=== PATIENT | female | born 1940 | race Caucasian/White ===

== ENCOUNTER 2016-10-21 22:31 | Inpatient (IN) | payer MEDICARE ==
[~2016-10-21] VITALS: Ht 152.4 cm; Wt 54.8 kg
[~2016-10-21 22:31] MED LIST: ACYCLOVIR400 MG PO; ALBUTEROL SUL0.083 % IN; ALPRAZOLA PO; AMBIEN10 MG OR; AMBIEN10 MG PO; AMLODIPINE5 MG PO; ATENOLOL50 MG OR; AVAPRO150 MG OR; AVELOX400 MG PO; CEFTIN500 MG PO; CHERATUSSIN PO; CLONIDINE0.2 MG OR; COUMADIN4 MG PO; COUMADIN5 MG OR; COUMADIN5 MG PO; DIAZEPAM5 MG PO; DIGITEK0.125 MG PO; DOXYCYCL HYC100 MG PO; DUONEB IN; EFFER-K25 MEQ; ELIQUIS5 MG PO; ENOXAPARIN40 MG/0.1 SC; HALCION0.25 MG OR; HALCION0.25 MG PO; INDERAL 20MG TA20 MG PO; JANTOVEN5 MG PO; K-DUR/KLOR-CON10 MEQ PO; LASIX 20 MG TAB20 MG PO; LISINOPRIL10 MG PO; LISINOPRIL20 MG PO; LISINOPRIL5 MG PO; LOPRESSOR 550 MG/TAB PO; LOPRESSOR50 MG PO; LOSARTAN POT50 MG PO; LOVENOX 4040 MG/0.4 SC; LOVENOX80 MG/0.8 SC; MAG CITRATE PO; MEDDOSEPAK OR; METHADONE HCL10 MG PO; METOPROL TAR25 MG PO; METOPROL TAR50 MG OR; MIRALAX3350 N1 PO; NADOLOL20 MG PO; NORCO1 TA1 PO; OXYCOD/APAP1 TA4 PO; PERCOCET 10/31 COMBO PO; PERCOCET 5/321 COMBO PO; PERCOCET 5/325M1 TAB PO; PERCOCET1 TA2 OR; PERCOCET1 TA4 PO; PREDNISONE20 MG PO; RESTORIL15 MG PO; RESTORIL30 MG PO; SURFAK240 MG/CAP PO; TEMAZEPAM30 MG PO; TRAMADOL HCL50 MG PO; TRICOR145 MG OR; ULTRAM50 M1 PO; VALIUM2 MG; VALIUM5 MG OR; VISTARIL25 MG PO; WARFARIN SODIUM5 MG PO; WARFARIN10 MG PO; XANAX XR0.5 MG PO; ZITHROMAX250 MG PO; ZOVIRAX800 MG OR
--- NOTE | 2016-10-21 22:32 | NUR ---
PATIENT TO ROOM 10 VIA EMS STRETCHER. UNDRESSED INTO A GOWN. TRIAGE COMPLETED AT BEDSIDE. AWAITING MD PEREIRA.
--- NOTE | 2016-10-21 22:34 | NUR ---
PT. WITH C/O NAUSEA AND VOMITING SINCE THIS AM. PT. STATES SHE VOMITED 1 TIME A MODERATE AMT. OF UNDIGESTED FOOD.
[2016-10-21 23:01] LABS: HEMOGLOBIN 14.1 g/dl (12.0-16.0); IMMATURE GRANULOCYTES 0.3 % (0.0-1.0); MEAN CELL VOLUME 90.1 fL CALC (80.0-100.0); MEAN CORPUSCULAR HGB CONC 34.4 g/L CALC (32.0-36.0); NEUT# 11.36 thou/uL (2.00-7.15); RED BLOOD COUNT 4.55 mill/uL (4.20-5.60); RED CELL DISTRI WIDTH 13.2 % (11.5-15.5)
--- NOTE | 2016-10-21 23:08 | NUR ---
IVF AND IV ANTIEMETIC GIVEN PER MD ORDER.
[2016-10-21 23:19] LABS: AMYLASE 365 u/l (30-110); LIPASE 886 u/l (23-300)
[2016-10-21 23:21] LABS: ALBUMIN 4.5 g/dL (3.2-5.0); ALKALINE PHOSPHATASE 139 u/l (38-126); ANION GAP 19 (6-22 (CALC)); BILIRUBIN, TOTAL 0.7 mg/dL (0.0-1.4); BUN 21 mg/dL (8-23); BUN/CREATININE RATIO 28 (12-20 (CALC)); CALCIUM 9.4 mg/dL (8.4-10.2); CARBON DIOXIDE 21 mmol/l (22-30); CHLORIDE 107 mmol/l (95-108); CREATININE 0.8 mg/dL (0.5-1.0); GFR > 60 ML/MIN (>=60 (CALC)); GFR FOR AFR.AMER. > 60 ML/MIN (>=60 (CALC)); GLUCOSE 173 mg/dL (82-115); POTASSIUM 4.1 mmol/l (3.5-5.1); SGOT/AST 47 u/l (9-36); SGPT/ALT 39 u/l (11-66); SODIUM 143 mmol/l (137-146); TOTAL PROTEIN 7.4 g/dL (6.3-8.2)
--- NOTE | 2016-10-21 23:22 | NUR ---
IV PAIN MED GIVEN PER MD ORDER.
[2016-10-21 23:32] LABS: MYOGLOBIN 24 ng/mL (0 - 62)
--- NOTE | 2016-10-21 23:34 | NUR ---
IV LABETALOL GIVEN FOR BP 208/147, HR 80.
--- NOTE | 2016-10-21 23:40 | NUR ---
BP NOW 187/83. AWARE.
--- NOTE | 2016-10-22 00:07 | NUR ---
IV PAIN MED AND IV PROTONIX GIVEN PER MD ORDER.
--- NOTE | 2016-10-22 01:05 | NUR ---
IVF CONT. PER MD ORDER.
--- NOTE | 2016-10-22 01:09 | NUR ---
PT. STATES HER ABD. PAIN HAS NOW DECREASED TO A 7 ON A SCALE OF 1-10.
--- NOTE | 2016-10-22 01:49 | NUR ---
Admission Note Report Given to: PAMELA FUNES Transported by: Wheelchair X Stretcher Transported with: X Nurse Transporter X Patent IV O2 Machine Silk Screen Printer
--- NOTE | 2016-10-22 02:06 | NUR ---
PT. TRANSFERED TO [facility].
[2016-10-22 02:25] VITALS: BP 173/89
--- NOTE | 2016-10-22 02:25 | NUR ---
PT. ARRIVED TO THE FLOOR VIA STRETCHER ACCOMPANIED BY ER NURSE. PT. ASSISTED TO THE BSC TO VOID, PT. VOIDED 400 ML OF DARK YELLOW URINE, AND THEN ASSISTED PT. INTO BED.ORIENTED TO CALL LIGHT, ROOM , VERBALIZES UNDERSTANDING. TEDS PLACED TO BILATERAL LE. VS OBTAINED, B/P ELEVATED AT 173/89, AND PT. C/O PAIN AND NAUSEA, NO ORDERS FOR MEDICATIONS AT THIS TIME, WILL CALL MD FOR FURTHER ORDERS. IV SITE TO LEFT HAND FOUND DISLODGED, CATH TIP IS INTACT, PLANT MAINTENANCE MECHANIC TO PLACE NEW IV SITE SHORTLY. POC EXPLAINED. INSTRUCTED PT. TO CALL FOR ANY OOB NEEDS. WILL CONTINUE TO MONITOR. CALL LIGHT IS IN REACH.
--- NOTE | 2016-10-22 02:56 | NUR ---
CALLED DR. DUFFY AND NOTIFIED HIM OF PT'S B/P 173/89 AND OF PT'S C/O PAIN AND NAUSEA, NEW ORDERS RECEIVED AND TO BE CARRIED OUT.
[2016-10-22 03:21] LABS: URINE BILIRUBIN - DIPSTICK NEGATIVE (NEGATIVE); URINE BLOOD DIPSTICK NEGATIVE (NEGATIVE); URINE CLARITY CLEAR; URINE COLOR YELLOW; URINE GLUCOSE - DIPSTICK 100 mg/dL (NEGATIVE); URINE KETONE NEGATIVE (NEGATIVE); URINE LEUK ESTERASE NEGATIVE (NEGATIVE); URINE NITRITE - DIPSTICK NEGATIVE (Negative); URINE PROTEIN - DIPSTICK NEGATIVE (NEG-TRACE); URINE SPECIFIC GRAVITY >=1.030; URINE UROBILINOGEN - DIPSTICK 0.2 E.U./dL (0.2)
[2016-10-22 03:27] LABS: BARBITURATES NEGATIVE (NEGATIVE); COCAINE NEGATIVE (NEGATIVE); METHADONE NEGATIVE (NEGATIVE); OXCYCODONE POSITIVE (NEGATIVE); TETRAHYDROCANNABIONOL POSITIVE (NEGATIVE); TRICYLIC ANTIDEPRESSANTS NEGATIVE (NEGATIVE)
[2016-10-22 05:47] VITALS: BP 145/61
--- NOTE | 2016-10-22 05:47 | NUR ---
PT. RESTING IN BED WITH NO DISTRESS NOTED. B/P REASSESSED 145/61. WILL CONTINUE TO MONITOR.
[2016-10-22 07:09] VITALS: BP 133/68
--- NOTE | 2016-10-22 07:09 | NUR ---
PT IN SUPINE POSITION; A/O X3; NO COMPLAINTS VOICED AT THIS TIME; CALL MARTINES WITHIN REACH; WILL CONTINUE TO MONITOR.
--- NOTE | 2016-10-22 07:53 | NUR ---
REPORT RECIEVED. PT IS ALERT AND ORIENTED X4. ASSESSMENT COMPLETED WITH NO ABNORMALITIES. A SHOWER WAS OFFERED BUT DENIED. PT HAS NO COMPLAINTS AT THIS TIME. CALL LIGHT IS IN PLACE. I WILL CONTINUE TO MONITOR.
--- NOTE | 2016-10-22 08:46 | NUR ---
DR. DUFFY IN TO SEE PT; PLAN OF CARE DISCUSSED
[2016-10-22 09:22] LABS: HEMATOCRIT 33.6 % (37.0-47.0); HEMOGLOBIN 11.4 g/dl (12.0-16.0); IMMATURE GRANULOCYTES 0.5 % (0.0-1.0); MEAN CELL VOLUME 91.8 fL CALC (80.0-100.0); MEAN CORPUSCULAR HGB 31.1 pG CALC (26.0-32.0); MEAN CORPUSCULAR HGB CONC 33.9 g/L CALC (32.0-36.0); NEUT# 7.5 thou/uL (2.00-7.15); RED BLOOD COUNT 3.66 mill/uL (4.20-5.60); RED CELL DISTRI WIDTH 13.2 % (11.5-15.5)
[2016-10-22 10:02] LABS: ANION GAP 14 (6-22 (CALC)); BUN 15 mg/dL (8-23); BUN/CREATININE RATIO 24 (12-20 (CALC)); CALCIUM 8.3 mg/dL (8.4-10.2); CARBON DIOXIDE 22 mmol/l (22-30); CHLORIDE 110 mmol/l (95-108); CREATININE 0.6 mg/dL (0.5-1.0); GFR > 60 ML/MIN (>=60 (CALC)); GFR FOR AFR.AMER. > 60 ML/MIN (>=60 (CALC)); GLUCOSE 126 mg/dL (82-115); POTASSIUM 3.9 mmol/l (3.5-5.1); SODIUM 141 mmol/l (137-146)
--- NOTE | 2016-10-22 11:52 | NUR ---
I ASSISTED PT TO THE BEDSIDE COMMODE TO VOID (200MLS) AND THEN HELPED HER BACK TO BED. HER IV FLUID BAG WAS CHANGED. LUNCH WAS PROVIDED FOR HER. PT HAS NO COMPLAINTS AT THIS TIME AND CALL LIGHT IS IN PLACE. REPORT WAS GIVEN.
--- NOTE | 2016-10-22 12:01 | NUR ---
TYRELL LANZA STUDENT DOCUMENTATION DATE AND TIME: 10/22/1605/02/1201 by Radha Howe-Instructor. All documentation for date entered by GIANLUCA Sandoval reviewed and deemed acceptable.
[2016-10-22 15:05] VITALS: BP 166/86
--- NOTE | 2016-10-22 15:41 | NUR ---
PT IN SUPINE POSITION; NO COMPLAINTS VOICED AT THIS TIME; IVF INFUSING WITHOUT DIFFICULTY; CALL MARTINES WITHIN REACH; WILL CONTINUE TO MONITOR.
--- NOTE | 2016-10-22 19:50 | NUR ---
PT RESTING IN SEMI FOWLERS POSITION;PT COMPLAINS OF ABDOMINAL AND BACK PAIN RATING 8/10 ON THE PAIN SCALE AND REQUESTS PRN PAIN MEDICATION;PT TO BE MEDICATED ACCORDINGLY;ASSESSMENT COMPLETED;IV FLUIDS INFUSING WELL TO LEFT FOREARM;NO ABDOMINAL TENDERNESS NOTED;SKIN INTACT;VS OBTAINED;COMMODE AT BEDSIDE;PT RE-EDUCATED ON ROOM AND CALL LIGHT SYSTEM ANF VERBALIZES UNDERSTANDING;PT REQUESTS PRN SLEEPING MEDICATION;MD TO BE NOTIFED;PT DENIES ANY OTHER NEEDS AT THIS TIME;BED IN LOWEST POSITION WITH CALL LIGHT IN REACH;WILL CONTINUE TO MONITOR
[2016-10-22 20:05] VITALS: BP 162/80
--- NOTE | 2016-10-22 20:15 | NUR ---
RBTO FOR RESTORIL 15MG PO PRN SLEEP OBTAINED FROM ;WILL CONTINUE TO MONITOR
--- NOTE | 2016-10-23 00:15 | NUR ---
PT SLEEPING IN BED;NO S/S OF DISTRESS NOTED;IV FLUIDS INFUSING WELL;RESPIRATIONS EVEN AND UNLABORED ON RA;COMMODE AT BEDSIDE;BED IN LOWEST POSITION WITH CALL LIGHT IN REACH;WILL CONTINUE TO MONITOR
--- NOTE | 2016-10-23 03:30 | NUR ---
PT SLEEPING IN SEMI FOWLERS POSITION;IV FLUIDS INFUSING WELL AT THIS TIME;NO S/S OF DISTRESS NOTED;RESPIRATIONS EVEN AND UNLABORED ON RA;COMMODE AT BEDSIDE;BED IN LOWEST POSITION WITH CALL LIGHT IN REACH;WILL CONTINUE TO MONITOR
[2016-10-23 05:15] VITALS: BP 139/88
--- NOTE | 2016-10-23 05:30 | NUR ---
PT RESTING IN SEMI FOWLERS POSITION;PT VERBALIZES THAT SHE HAD A GREAT NIGHT SLEEP;PT COMPLAINS OF ABDOMINAL PAIN RATING 7/10 ON THE PAIN SCALE AND REQUESTS PRN PAIN MEDICATION;PT TO BE MEDICATED ACCORDINGLY PER MD ORDERS;IV FLUIDS INFUSING WELL;PT DENIES ANY OTHER NEEDS AT THIS TIME;PT TOLD TO CALL FOR ASSISTANCE IF NEEDED;BED IN LOWEST POSITION WITH CALL LIGHT IN REACH;WILL CONTINUE TO MONITOR
[2016-10-23 08:30] VITALS: BP 161/91
--- NOTE | 2016-10-23 08:30 | NUR ---
ASSESSMENT IS COMPLETED: RIGHT SIDED WEAKNESS FROM STROKE IN MOV. IV SITE IS FREE FROM REDNESS OR EDEMA. CONTINUE TO OBSERVE AND MONITOR.
[2016-10-23 09:43] LABS: HEMATOCRIT 33.7 % (37.0-47.0); HEMOGLOBIN 11.2 g/dl (12.0-16.0); IMMATURE GRANULOCYTES 0.3 % (0.0-1.0); MEAN CELL VOLUME 93.9 fL CALC (80.0-100.0); MEAN CORPUSCULAR HGB 31.2 pG CALC (26.0-32.0); MEAN CORPUSCULAR HGB CONC 33.2 g/L CALC (32.0-36.0); NEUT# 3.45 thou/uL (2.00-7.15); RED BLOOD COUNT 3.59 mill/uL (4.20-5.60); RED CELL DISTRI WIDTH 13.3 % (11.5-15.5)
[2016-10-23 09:52] LABS: ALBUMIN 3.1 g/dL (3.2-5.0); ALKALINE PHOSPHATASE 86 u/l (38-126); AMYLASE 56 u/l (30-110); ANION GAP 10 (6-22 (CALC)); BILIRUBIN, TOTAL 0.6 mg/dL (0.0-1.4); BUN 10 mg/dL (8-23); BUN/CREATININE RATIO 14 (12-20 (CALC)); CALCIUM 7.9 mg/dL (8.4-10.2); CARBON DIOXIDE 24 mmol/l (22-30); CHLORIDE 112 mmol/l (95-108); CREATININE 0.7 mg/dL (0.5-1.0); GFR > 60 ML/MIN (>=60 (CALC)); GFR FOR AFR.AMER. > 60 ML/MIN (>=60 (CALC)); GLUCOSE 82 mg/dL (82-115); LIPASE 21 u/l (23-300); POTASSIUM 3.8 mmol/l (3.5-5.1); SGOT/AST 20 u/l (9-36); SGPT/ALT 27 u/l (11-66); SODIUM 142 mmol/l (137-146); TOTAL PROTEIN 5.6 g/dL (6.3-8.2)
--- NOTE | 2016-10-23 12:30 | NUR ---
PT IS RELAXING IN BED NOT REALLY WANTING THE IV BUT UNDERSTANDS THE NEED FOR IT.
--- NOTE | 2016-10-23 13:36 | NUR ---
IV SITE ON LEFT FA INFILTRATED., ATTEMPTED X1 IN RFA AND IT ALSO INFILTRATED. CONTINUE TO OBSERVE AND MONITOR.
--- NOTE | 2016-10-23 14:12 | NUR ---
IV SITE IN RH WITH # 24 BY Anita DENISE RN. PT TOLERATED WELL.
[2016-10-23 16:55] VITALS: BP 151/77
--- NOTE | 2016-10-23 17:11 | NUR ---
PT IS RELAXING IN BED WITH NO DISTRESS NOTED. IV SITE IS FREE FROM REDNESS OR EDEMA.
[2016-10-23 19:15] VITALS: BP 178/88
--- NOTE | 2016-10-23 19:18 | NUR ---
PT ASSISTED UP TO BSC AND BACK TO BED. ASSESSMENT COMPLETEE.POC EXPAINED. MEDICATED WITH DILAUDID AND CLONIDINE PER ORDERS FOR C/O BACK PAIN AND BP WAS 178/88. PT DENIES FURTHER NEEDS. CALL LIGHT IN REACH.
[2016-10-23 21:30] VITALS: BP 171/85
--- NOTE | 2016-10-23 21:40 | NUR ---
PT ASSISTED UP TO BSC AND BACK BED, MEDICATED WITH RESTORIL PER ORDERS. DENIES FURTHER NEEDS. CALL LIGHT IN REACH.
[2016-10-24] VITALS (7 sets, daily range): BP systolic 154–179; BP diastolic 78–91
--- NOTE | 2016-10-24 00:12 | NUR ---
PT MEDICATED WITH DILAUDID PER ORDERS FOR C/O LOWER BACK PAIN. DENIES FURTHER NEEDS. CALL LIGHT IN REACH
--- NOTE | 2016-10-24 03:09 | NUR ---
PT IN BED WITH EYES CLOSED.RESP EVEN AND UNLABORED.NO S/S OF DISTRESS. CALL LIGHT IN REACH
--- NOTE | 2016-10-24 04:20 | NUR ---
PT MEDICATED WITH DILAUDID PER ORDRES FOR C/O BACK PAIN. DENIES FURTHER NEEDS. CALL LIGHT IN REACH
[2016-10-24 05:47] LABS: HEMOGLOBIN 12.5 g/dl (12.0-16.0); IMMATURE GRANULOCYTES 1.1 % (0.0-1.0); MEAN CELL VOLUME 91.8 fL CALC (80.0-100.0); MEAN CORPUSCULAR HGB CONC 33.8 g/L CALC (32.0-36.0); NEUT# 5.89 thou/uL (2.00-7.15); RED BLOOD COUNT 4.03 mill/uL (4.20-5.60); RED CELL DISTRI WIDTH 12.9 % (11.5-15.5)
[2016-10-24 06:11] LABS: ALBUMIN 3.4 g/dL (3.2-5.0); ALKALINE PHOSPHATASE 102 u/l (38-126); AMYLASE 41 u/l (30-110); ANION GAP 13 (6-22 (CALC)); BILIRUBIN, TOTAL 0.9 mg/dL (0.0-1.4); BUN 9 mg/dL (8-23); BUN/CREATININE RATIO 12 (12-20 (CALC)); CALCIUM 8.3 mg/dL (8.4-10.2); CARBON DIOXIDE 26 mmol/l (22-30); CHLORIDE 106 mmol/l (95-108); CREATININE 0.7 mg/dL (0.5-1.0); GFR > 60 ML/MIN (>=60 (CALC)); GFR FOR AFR.AMER. > 60 ML/MIN (>=60 (CALC)); GLUCOSE 71 mg/dL (82-115); LIPASE 11 u/l (23-300); POTASSIUM 3.6 mmol/l (3.5-5.1); SGOT/AST 23 u/l (9-36); SGPT/ALT 31 u/l (11-66); SODIUM 142 mmol/l (137-146); TOTAL PROTEIN 5.7 g/dL (6.3-8.2)
--- NOTE | 2016-10-24 07:00 | NUR ---
SHIFT CHANGE REPORT FROM KAYLEE, PT SLEEPING BUT AROUSES TO VERBAL STIMULI, ORIENTED, STATES SHE FEELS MUCH BETTER TODAY THAN SHE DID YESTERDAY, ALL NEEDS ADDRESSED, CALL MARTINES IN REACH.
--- NOTE | 2016-10-24 12:25 | NUR ---
ASSISTED FROM RECLINER TO BR AND BACK TO BED, PT WANTS TO EAT MEAL IN BED AND STATES SHE HAS BEEN SITTING TOO LONG IN CHAIR. PAIN ISSUE ADDRESSED, CALL MARTINES IN REACH.
--- NOTE | 2016-10-24 16:23 | NUR ---
C/O PAIN @ 04/25 TO BACK AND ABD, ISSUE ADDRESSED, CALL MARTINES IN REACH.
--- NOTE | 2016-10-24 17:03 | NUR ---
BP ELEVATED, DR DUFFY NOTIFIED, GAVE ORDERS, ORDERS EXECUTED.
--- NOTE | 2016-10-24 19:30 | NUR ---
B/P 154/83 HR 79, OOB TO BSC VOIDING CLEAR YELLOW URINE, A/O X3, DENIES PAIN AT THIS TIME. ENCOURAGED TO USE CALL LIGHT FOR ASSISTANCE.
--- NOTE | 2016-10-24 21:35 | NUR ---
C/O PAIN TO BACK 04/25 MEDICATED WITH DILAUDID 1MG IV.
--- NOTE | 2016-10-24 23:30 | NUR ---
OOB TO BSC WITH STANDBY ASSISTANCE, VOIDING CLEAR YELLOW URINE, BACK TO BED. CALL LIGHT IN REACH.
[2016-10-25 04:01] VITALS: BP 130/83
[2016-10-25 05:50] LABS: HEMATOCRIT 38.7 % (37.0-47.0); HEMOGLOBIN 13.4 g/dl (12.0-16.0); IMMATURE GRANULOCYTES 0.1 % (0.0-1.0); MEAN CELL VOLUME 89.2 fL CALC (80.0-100.0); MEAN CORPUSCULAR HGB 30.9 pG CALC (26.0-32.0); MEAN CORPUSCULAR HGB CONC 34.6 g/L CALC (32.0-36.0); NEUT# 4.72 thou/uL (2.00-7.15); RED BLOOD COUNT 4.34 mill/uL (4.20-5.60); RED CELL DISTRI WIDTH 12.8 % (11.5-15.5)
--- NOTE | 2016-10-25 06:01 | NUR ---
MEDICATED WITH DILAUDID 1MG IV FOR C/O BACK PAIN 04/25.
[2016-10-25 06:10] LABS: ANION GAP 11 (6-22 (CALC)); BUN 10 mg/dL (8-23); BUN/CREATININE RATIO 15 (12-20 (CALC)); CALCIUM 8.8 mg/dL (8.4-10.2); CARBON DIOXIDE 30 mmol/l (22-30); CHLORIDE 103 mmol/l (95-108); CREATININE 0.7 mg/dL (0.5-1.0); GFR > 60 ML/MIN (>=60 (CALC)); GFR FOR AFR.AMER. > 60 ML/MIN (>=60 (CALC)); GLUCOSE 96 mg/dL (82-115); POTASSIUM 3.5 mmol/l (3.5-5.1); SODIUM 141 mmol/l (137-146)
--- NOTE | 2016-10-25 07:00 | NUR ---
SHIFT CHANGE REPORT FROM LEONARDO, KAYE AWAKE AND ALERT SITTING UP IN BED, NO NEW COMPLAIN AT THIS TIME, ALL NEEDS ADDRESSED, CALL MARTINES IN REACH.
[2016-10-25 09:34] VITALS: BP 125/73
[2016-10-25 09:49] VITALS: BP 125/73
[2016-10-25] MEDS ORDERED: AMLODIPINE5 MG PO (10:52)
[2016-10-25] MEDS ORDERED: METOPROL TAR25 MG PO (10:52)
[2016-10-25] MEDS ORDERED: LISINOPRIL10 MG PO (10:52)
[2016-10-25] MEDS ORDERED: ALBUTEROL SUL0.083 % IN (10:52)
[2016-10-25] MEDS ORDERED: TEMAZEPAM30 MG PO (10:52)
[2016-10-25] MEDS ORDERED: PERCOCET 5/325M1 TAB PO (10:52)
[2016-10-25] MEDS ORDERED: DIAZEPAM5 MG PO (10:52)
--- NOTE | 2016-10-25 13:03 | NUR ---
GRAND-DAUGHTER MARLA WAS CALLED TO RECEIVE PT, STATED SHE WAS IN [place] AND WAS NOT ABLE TO GET PT, ADVISED TO SEND HOME PT IN [place] AND HER FATHER WILL PAY [employer] FEE WHEN PT REACHES HOME. PT WAS ADVISED OF PLAN AND AGREED, [facility] WAS CALLED FOR PT.
--- NOTE | 2016-10-25 13:05 | NUR ---
Discharge instructions given. Patient verbalizes understanding of same. Discharged in good condition via Wheelchair to Home with *Other. All belongings sent with pt.
== END 2016-10-25 13:20 | disposition home or self-care (01) | DRG 439 ==
LOC: ENPENDDIS → ED 22:31 → ED-I 10-22 00:56 → ED 10-22 01:03 → MS2 10-22 01:04
PROVIDERS: Emergency Medicine; ADMIT Internal Medicine Geriatric Medicine; ATTEND Internal Medicine Geriatric Medicine
DX: K85.90 Acute pancreatitis without necrosis or infection, unspecified (principal); F19.20 Other psychoactive substance dependence, uncomplicated; I48.91 Unspecified atrial fibrillation; J44.9 Chronic obstructive pulmonary disease, unspecified; I10 Essential (primary) hypertension; I25.10 Atherosclerotic heart disease of native coronary artery without angina pectoris; F41.9 Anxiety disorder, unspecified; F32.9 Major depressive disorder, single episode, unspecified; G89.4 Chronic pain syndrome; Z95.0 Presence of cardiac pacemaker; Z86.711 Personal history of pulmonary embolism
CPT/HCPCS: S0164

== ENCOUNTER 2016-11-24 12:08 | Inpatient (IN) | payer MEDICARE ==
[~2016-11-24] VITALS: Ht 152.4 cm; Wt 53.0 kg
[2016-11-24 12:41] LABS: HEMATOCRIT 44.6 % (37.0-47.0); IMMATURE GRANULOCYTES 0.4 % (0.0-1.0); MEAN CELL VOLUME 94.1 fL CALC (80.0-100.0); MEAN CORPUSCULAR HGB 31.6 pG CALC (26.0-32.0); MEAN CORPUSCULAR HGB CONC 33.6 g/L CALC (32.0-36.0); NEUT# 6.59 thou/uL (2.00-7.15); RED BLOOD COUNT 4.74 mill/uL (4.20-5.60); RED CELL DISTRI WIDTH 12.8 % (11.5-15.5)
--- NOTE | 2016-11-24 12:42 | NUR ---
PT STATES HASNT BEEN TAKING HER BLOOD PRESSURE MEDICATION FOR SEVERAL DAYS, STATES SHE RAN OUT OF MEDICATION SEVERAL DAYS AGO AND HASNT BEEN ABLE TO CATTLE TRADER MEDICATION
--- NOTE | 2016-11-24 12:43 | NUR ---
PT STATES HER DAUGHTER EITHER DOESNT HAVE THE TIME, OR DOESNT WANT TO [employer] RECORDER HER MEDICATIONS EVEN THOUGH SHE HAS TOLD HER THAT SHE WOULD PAY FOR THEM, BECAUSE SHE SAYS SHE HAS ASKED HER SEVERAL TIMES.
--- NOTE | 2016-11-24 12:44 | NUR ---
PT UP TO BEDSIDE COMMODE
[2016-11-24 12:53] LABS: ALBUMIN 4.5 g/dL (3.2-5.0); ALKALINE PHOSPHATASE 131 u/l (38-126); ANION GAP 16 (6-22 (CALC)); BILIRUBIN, TOTAL 0.5 mg/dL (0.0-1.4); BUN 18 mg/dL (8-23); BUN/CREATININE RATIO 26 (12-20 (CALC)); CALCIUM 9.6 mg/dL (8.4-10.2); CARBON DIOXIDE 26 mmol/l (22-30); CHLORIDE 106 mmol/l (95-108); CREATININE 0.7 mg/dL (0.5-1.0); GFR > 60 ML/MIN (>=60 (CALC)); GFR FOR AFR.AMER. > 60 ML/MIN (>=60 (CALC)); GLUCOSE 92 mg/dL (82-115); POTASSIUM 4.5 mmol/l (3.5-5.1); SGOT/AST 34 u/l (9-36); SGPT/ALT 42 u/l (11-66); SODIUM 144 mmol/l (137-146); TOTAL PROTEIN 7.8 g/dL (6.3-8.2)
[2016-11-24 13:20] LABS: URINE BILIRUBIN - DIPSTICK NEGATIVE (NEGATIVE); URINE BLOOD DIPSTICK NEGATIVE (NEGATIVE); URINE CLARITY CLEAR; URINE COLOR YELLOW; URINE GLUCOSE - DIPSTICK NEGATIVE (NEGATIVE); URINE KETONE NEGATIVE (NEGATIVE); URINE LEUK ESTERASE NEGATIVE (NEGATIVE); URINE NITRITE - DIPSTICK NEGATIVE (Negative); URINE PH 6.5 (4.5-8.0); URINE PROTEIN - DIPSTICK NEGATIVE (NEG-TRACE); URINE SPECIFIC GRAVITY <=1.005; URINE UROBILINOGEN - DIPSTICK 0.2 E.U./dL (0.2)
[2016-11-24 13:24] LABS: BARBITURATES NEGATIVE (NEGATIVE); COCAINE NEGATIVE (NEGATIVE); METHADONE NEGATIVE (NEGATIVE); OXCYCODONE NEGATIVE (NEGATIVE); TETRAHYDROCANNABIONOL POSITIVE (NEGATIVE); TRICYLIC ANTIDEPRESSANTS NEGATIVE (NEGATIVE)
--- NOTE | 2016-11-24 13:51 | NUR ---
PT RESTING QUIETLY ON STRETCHER, WATCHING TV.
--- NOTE | 2016-11-24 15:06 | NUR ---
PT UP TO BATHROOM AGAIN, B/P HAS DECREASED, PT STATES FEELS MUCH BETTER
--- NOTE | 2016-11-24 16:13 | NUR ---
PT SLEEPING, LIGHTS TURNED OFF, VITAL SIGNS REMAIN STABLE. STATES SHE IS WANTING TO STAY OVERNIGHT AT HOSPITAL, SINCE SHE DOESNT HAVE HER MEDICATIONS TO CONTINUE TAKING.
--- NOTE | 2016-11-24 16:40 | NUR ---
PT COMPLAINING OF BACK PAIN, REQUESTING SOMETHING FOR THE PAIN
--- NOTE | 2016-11-24 17:49 | NUR ---
REPORT GIVEN TO MED SURG FOR CONTINUATION OF CARE
[2016-11-24 18:00] VITALS: BP 164/88
--- NOTE | 2016-11-24 18:00 | NUR ---
PT TO ROOM VIA STRETCHER ACCOMPANIED BY STAFF; PT TO BED WITH MIN ASSIST; DR. DUFFY IN TO SEE PT; PT STATES RAN OUT OF BLOOD PRESSURE MEDS 3 DAYS AGO, UNABLE TO HAVE ANYONE PICK HER MEDS UP FROM THE PHARMACY AND STATES SHE HAD A FALL YESTERDAY AT HOME, WHILE GARDENING; TELE MONITOR IN PLACE; PT C/O BACK PAIN 03/25, WILL MEDICATE PER MD ORDER; PT ORIENTED TO ROOM AND CALL SYSTEM; WILL CONTINUE TO MONITOR.
--- NOTE | 2016-11-24 19:32 | NUR ---
PT IN BED A/O X3, C/O BACK AND GENERALIZED PAIN 04/25, MEDICATED WITH DILAUDID 1MG IV, ORIENTED TO BED CONTROLS AND CALL LIGHT. ENCOURAGED TO USE CALL LIGHT FOR ASSISTANCE, WILL CONTINUE TO MONITOR.
[2016-11-24 23:20] VITALS: BP 103/69
--- NOTE | 2016-11-25 01:39 | NUR ---
C/O BACK PAIN 05/25, MEDICATED WITH DILAUID IV PER OCT, CALL LIGHT IN REACH.
[2016-11-25 04:11] VITALS: BP 132/89
[2016-11-25 05:46] LABS: HEMATOCRIT 43.4 % (37.0-47.0); HEMOGLOBIN 14.5 g/dl (12.0-16.0); IMMATURE GRANULOCYTES 0.3 % (0.0-1.0); MEAN CELL VOLUME 94.6 fL CALC (80.0-100.0); MEAN CORPUSCULAR HGB 31.6 pG CALC (26.0-32.0); MEAN CORPUSCULAR HGB CONC 33.4 g/L CALC (32.0-36.0); NEUT# 6.41 thou/uL (2.00-7.15); RED BLOOD COUNT 4.59 mill/uL (4.20-5.60); RED CELL DISTRI WIDTH 13.1 % (11.5-15.5)
[2016-11-25 06:26] LABS: ALKALINE PHOSPHATASE 112 u/l (38-126); ANION GAP 18 (6-22 (CALC)); BILIRUBIN, TOTAL 0.5 mg/dL (0.0-1.4); BUN 15 mg/dL (8-23); BUN/CREATININE RATIO 20 (12-20 (CALC)); CALCIUM 9.3 mg/dL (8.4-10.2); CARBON DIOXIDE 21 mmol/l (22-30); CHLORIDE 107 mmol/l (95-108); CREATININE 0.8 mg/dL (0.5-1.0); GFR > 60 ML/MIN (>=60 (CALC)); GFR FOR AFR.AMER. > 60 ML/MIN (>=60 (CALC)); GLUCOSE 97 mg/dL (82-115); POTASSIUM 4.6 mmol/l (3.5-5.1); SGOT/AST 28 u/l (9-36); SGPT/ALT 34 u/l (11-66); SODIUM 142 mmol/l (137-146); TOTAL PROTEIN 6.8 g/dL (6.3-8.2)
--- NOTE | 2016-11-25 06:29 | NUR ---
C/O GENERALIZED/BACK PAIN 04/25 MEDICATED WITH DILUAID 1MG IV. CALL LIGHT IN REACH.
--- NOTE | 2016-11-25 07:26 | NUR ---
BEDSIDE REPORT RECEIVED FROM MYLA PATTERSON. PT REPROTS GENERALIZED PAIN ALL OVER. REPORTING OF CONCERNS ENCOURAGED. PLAN OF CARE DISCUSSED. FALL PRECAUTIONS REINFORCED. CALL LIGHT REVIEWED AND IN REACH. PT STATES UNDERSTANDING.
[2016-11-25 08:05] VITALS: BP 118/73
--- NOTE | 2016-11-25 12:00 | NUR ---
PT SLEEPING AT THIS TIME. WILL CONTINUE TO MONITOR.
[2016-11-25 12:20] VITALS: BP 119/71
[2016-11-25 15:47] VITALS: BP 123/80
--- NOTE | 2016-11-25 17:00 | NUR ---
PT ASSISTED W/ SHOWER AT THIS TIME. TOLERATED ACTIVITY WELL.
[2016-11-25 19:30] VITALS: BP 144/86
--- NOTE | 2016-11-25 20:00 | NUR ---
PATIENT OOB AND IN THE WILDER-UNSTEADY ON HER FEET. PATIENT MOVED TO ROOM 270 FOR PATIENT SAFETY-CLOSER TO NSG STATION. BED ALARMS IN PLACE FOR PATIENT SAFETY. SAFETY PRECAUTIONS REINFORCED WITH PATIENT. CALL LIGHT IN REACH. WILL CONT TO MONITOR.
--- NOTE | 2016-11-25 21:57 | NUR ---
PATIENT RESTING IN BED AT THIS TIME. PATIENT C/O SEVERE BACK PAIN 10/10 ON PAIN SCALE. PATIENT MEDICATED WITH DILAUDID 1MG IVPB ORDERED FOR PATIENT. BED ALARMS IN PLACE FOR PATIENT SAFETY. CALL LIGHT IN REACH. WILL CONT TO MONITOR.
[2016-11-25 23:40] VITALS: BP 150/60
[2016-11-26] VITALS (7 sets, daily range): BP systolic 102–160; BP diastolic 52–80
--- NOTE | 2016-11-26 03:15 | NUR ---
PATIENT C/O SEVERE PAIN 9/10 ON PAIN SCALE-MEDICATED WITH DILAUDID 1MG IVP FOR PAIN. PATIENT C/O PAIN AT IV SITE AND SITE D/C. NEW IV SITE STARTED TO RIGHT WRIST WITH GOOD BLOOD RETURN. BED ALARM IN PLACE FOR PATIENT SAFETY. CALL LIGHT IN REACH. WILL CONT TO MONITOR.
--- NOTE | 2016-11-26 04:38 | NUR ---
PATIENT STATES ONLY SLIGHT RELIEF FROM PAIN MEDS. RESTING IN BED. CALL LIGHT IN REACH. BED ALARM IN PLACE FOR PATIENT SAFETY. WILL CONT TO MONITOR.
[2016-11-26 04:59] LABS: HEMATOCRIT 39.9 % (37.0-47.0); HEMOGLOBIN 13.4 g/dl (12.0-16.0); IMMATURE GRANULOCYTES 0.2 % (0.0-1.0); MEAN CORPUSCULAR HGB 31.9 pG CALC (26.0-32.0); MEAN CORPUSCULAR HGB CONC 33.6 g/L CALC (32.0-36.0); NEUT# 4.21 thou/uL (2.00-7.15); RED BLOOD COUNT 4.2 mill/uL (4.20-5.60); RED CELL DISTRI WIDTH 12.7 % (11.5-15.5)
[2016-11-26 05:16] LABS: ANION GAP 12 (6-22 (CALC)); BUN 16 mg/dL (8-23); BUN/CREATININE RATIO 21 (12-20 (CALC)); CALCIUM 9.1 mg/dL (8.4-10.2); CARBON DIOXIDE 26 mmol/l (22-30); CHLORIDE 106 mmol/l (95-108); CREATININE 0.8 mg/dL (0.5-1.0); GFR > 60 ML/MIN (>=60 (CALC)); GFR FOR AFR.AMER. > 60 ML/MIN (>=60 (CALC)); GLUCOSE 93 mg/dL (82-115); POTASSIUM 4.5 mmol/l (3.5-5.1); SODIUM 139 mmol/l (137-146)
--- NOTE | 2016-11-26 06:45 | NUR ---
REPORT RECEIVED FROM SHANTEL CONTI. PT RESTING IN BED WITH EYES CLOSED, SAFETY REVIEWED, CALL LIGHT WITHIN REACH. WILL CONTINUE TO MONITOR.
--- NOTE | 2016-11-26 08:00 | NUR ---
IN TO SEE PT AT THIS TIME. PLAN OF CARE DISCUSSED WITH PT. PT APPREHENSIVE OF THE POSSIBILITY OF REHAB. WILL CONTINUE TO EDUCATE PT OF BENEFITS AND RISKS.
--- NOTE | 2016-11-26 09:07 | NUR ---
PT OFF THE FLOOR AT THIS TIME FOR PROCEDURE, STABLE AT TIME OF DEPARTURE.
--- NOTE | 2016-11-26 12:00 | NUR ---
PT ASSISTED BACK TO BED, WEAK ON THE RIGHT SIDE, CALL LIGHT WITHIN REACH, INSTRUCTED PT TO CALL FOR ASSISTANCE, PT VERBALIZES UNDERSTANDING.
--- NOTE | 2016-11-26 16:00 | NUR ---
PT RESTING QUIETLY IN BED. DENIES NEEDS OR CONCERNS WILL CONTINUE TO MONITOR.
--- NOTE | 2016-11-26 19:00 | NUR ---
SHIFT REPORT RECEIVED FROM NURSE NORMAN. PATIENT SITTING UP IN RECLINER CHAIR. PATIENT C/O BACK PAIN, BUT IS IN NO APPARENT DISTRESS. WILL MEDICATE AND CONTINUE TO MONITOR.
--- NOTE | 2016-11-26 19:10 | NUR ---
ASSISTED PATIENT OUT OF CHAIR TO BED. GAIT UNSTEADY. INITIATED FALL PRECAUTION PROCEDURES.
--- NOTE | 2016-11-26 19:22 | NUR ---
MEDICATE PATIENT WITH DILAUDID 1 MG IV PUSH FOR PAIN. PAT. TOLERATED WILL. WILL CONTINUE TO MONITOR.
--- NOTE | 2016-11-26 23:30 | NUR ---
ASSISTED PATIENT TO THE BSC. VOIDED 150CC CLEAR YELLLOW URINE. ASSISTED BACK TO BED. TURNED TO LEFT SIDE. PILLOW PLACED BETWEEN LEGS TO PREVENT INTERRUPTION IN SKIN INTEGRITY.
--- NOTE | 2016-11-27 | NUR ---
PATIENT RESTING QUIETLY IN BED WITH EYES CLOSED. NO ACUTE CHANGES NOTED IN PATIENT'S CONDITION AND IS IN NO APPARENT DISTRESS.
--- NOTE | 2016-11-27 04:00 | NUR ---
PATIENT IS AWAKE AND LAYING IN BED. NO ACUTE CHANGES NOTED IN PATIENT'S CONDITION. NO VOICED COMPLAINTS AT THIS TIME.
[2016-11-27 04:01] VITALS: BP 100/57
[2016-11-27 04:58] LABS: HEMOGLOBIN 13.2 g/dl (12.0-16.0); IMMATURE GRANULOCYTES 0.3 % (0.0-1.0); MEAN CORPUSCULAR HGB 31.4 pG CALC (26.0-32.0); NEUT# 4.06 thou/uL (2.00-7.15); RED BLOOD COUNT 4.21 mill/uL (4.20-5.60); RED CELL DISTRI WIDTH 12.6 % (11.5-15.5)
[2016-11-27 05:17] LABS: ALBUMIN 3.4 g/dL (3.2-5.0); ALKALINE PHOSPHATASE 92 u/l (38-126); ANION GAP 12 (6-22 (CALC)); BILIRUBIN, TOTAL 0.6 mg/dL (0.0-1.4); BUN 19 mg/dL (8-23); BUN/CREATININE RATIO 24 (12-20 (CALC)); CALCIUM 9.1 mg/dL (8.4-10.2); CARBON DIOXIDE 29 mmol/l (22-30); CHLORIDE 103 mmol/l (95-108); CREATININE 0.8 mg/dL (0.5-1.0); GFR > 60 ML/MIN (>=60 (CALC)); GFR FOR AFR.AMER. > 60 ML/MIN (>=60 (CALC)); GLUCOSE 92 mg/dL (82-115); POTASSIUM 4.5 mmol/l (3.5-5.1); SGOT/AST 22 u/l (9-36); SGPT/ALT 29 u/l (11-66); SODIUM 140 mmol/l (137-146)
--- NOTE | 2016-11-27 07:18 | NUR ---
BEDSIDE REPORT RECEIVED FROM SHANTEL MALAGON. PT DENIES PAIN. REPORTING OF CONCERNS ENCOURAGED. PLAN OF CARE DISCUSSED. PT STATES ANTICIPATION OF DISCHARGE. DISCHARGE PROCESS DISCUSSED. PLAN OF CARE DSICUSSED. CALL LIGHT REVIEWED AND IN REACH.
[2016-11-27 07:47] VITALS: BP 122/76
--- NOTE | 2016-11-27 09:12 | NUR ---
Pt out of bed in chair, stating that she wants to go home today. Pt moved sit to and from stand with supervision. Ambulated with RW 2x150' with supervision/CGA required. Pt had tendency to bump into objects on R side. Verbal instructions required for safety. Pt returned to chair with tray in front of her and call carrasco in reach.
[2016-11-27] MEDS ORDERED: catapres PO (10:04)
[2016-11-27] MEDS ORDERED: LISINOPRIL20 M1 PO (10:04)
[2016-11-27] MEDS ORDERED: TRAMADOL HCL50 MG PO (10:05)
[2016-11-27] MEDS ORDERED: ALPRAZOLAM0.5 M2 PO (10:05)
[2016-11-27 11:07] VITALS: BP 91/59
--- NOTE | 2016-11-27 12:45 | NUR ---
Discharge instructions given. Patient verbalizes understanding of same. Discharged in stable condition via Wheelchair to Home with family. All belongings sent with pt.
== END 2016-11-27 12:42 | DRG 69 ==
LOC: ENPENDDIS → ED 12:08 → ED-I 16:28 → ED 17:01 → MS2 17:02
PROVIDERS: Family Medicine; ADMIT Internal Medicine Geriatric Medicine; ATTEND Internal Medicine Geriatric Medicine
DX: G45.9 Transient cerebral ischemic attack, unspecified (principal); I69.951 Hemiplegia and hemiparesis following unspecified cerebrovascular disease affecting right dominant side; I48.91 Unspecified atrial fibrillation; I10 Essential (primary) hypertension; I69.992 Facial weakness following unspecified cerebrovascular disease; I25.10 Atherosclerotic heart disease of native coronary artery without angina pectoris; J44.9 Chronic obstructive pulmonary disease, unspecified; J45.909 Unspecified asthma, uncomplicated; K21.9 Gastro-esophageal reflux disease without esophagitis; F41.9 Anxiety disorder, unspecified; F32.9 Major depressive disorder, single episode, unspecified; M19.90 Unspecified osteoarthritis, unspecified site; G89.4 Chronic pain syndrome; Z95.0 Presence of cardiac pacemaker; Z91.81 History of falling; Z87.11 Personal history of peptic ulcer disease; Z86.711 Personal history of pulmonary embolism
CPT/HCPCS: G0378

== ENCOUNTER 2016-11-28 22:04 | Observation (INO) | payer MEDICARE ==
[~2016-11-28] VITALS: Ht 152.4 cm; Wt 51.3 kg
[~2016-11-28 22:04] MED LIST changes: +ALPRAZOLAM0.5 M2 PO; +LISINOPRIL20 M1 PO; +catapres PO
--- NOTE | 2016-11-28 22:25 | NUR ---
ARRIVES VIA [facility], UNABLE TO RECONCILE MEDS, PATIEMNT STATES SHE DOES NOT KNOW WHAT SHE HAS TAKEN.
--- NOTE | 2016-11-28 23:25 | NUR ---
IV ATTEMPT X 2 UNSUCCESSFUL.
[2016-11-29 00:41] LABS: HEMATOCRIT 41.9 % (37.0-47.0); HEMOGLOBIN 14.3 g/dl (12.0-16.0); IMMATURE GRANULOCYTES 0.1 % (0.0-1.0); MEAN CELL VOLUME 92.7 fL CALC (80.0-100.0); MEAN CORPUSCULAR HGB 31.6 pG CALC (26.0-32.0); MEAN CORPUSCULAR HGB CONC 34.1 g/L CALC (32.0-36.0); NEUT# 4.35 thou/uL (2.00-7.15); RED BLOOD COUNT 4.52 mill/uL (4.20-5.60); RED CELL DISTRI WIDTH 12.6 % (11.5-15.5)
--- NOTE | 2016-11-29 00:52 | NUR ---
PT RESTING IN BED WITH EYES CLOSED. WAKES EASILY TO VERBAL STIMULI. NO S/S OF DISTRESS. CALL LIGHT WITHIN REACH.
[2016-11-29 00:53] LABS: ALBUMIN 3.7 g/dL (3.2-5.0); ALKALINE PHOSPHATASE 98 u/l (38-126); ANION GAP 13 (6-22 (CALC)); BILIRUBIN, TOTAL 0.7 mg/dL (0.0-1.4); BUN 23 mg/dL (8-23); BUN/CREATININE RATIO 26 (12-20 (CALC)); CALCIUM 9.3 mg/dL (8.4-10.2); CARBON DIOXIDE 28 mmol/l (22-30); CHLORIDE 102 mmol/l (95-108); CREATININE 0.9 mg/dL (0.5-1.0); GFR > 60 ML/MIN (>=60 (CALC)); GFR FOR AFR.AMER. > 60 ML/MIN (>=60 (CALC)); GLUCOSE 101 mg/dL (82-115); POTASSIUM 4.8 mmol/l (3.5-5.1); SGOT/AST 30 u/l (9-36); SGPT/ALT 36 u/l (11-66); SODIUM 139 mmol/l (137-146); TOTAL PROTEIN 6.2 g/dL (6.3-8.2)
[2016-11-29 01:03] LABS: PROTHROMBIN TIME 10.5 SECONDS (9.0-12.5)
[2016-11-29 01:04] LABS: MYOGLOBIN 30 ng/mL (0 - 62)
--- NOTE | 2016-11-29 01:50 | NUR ---
PT SLEEPING. EASILY AROUSABLE. VSS. NO DISTRESS/COMPLAINTS AT THIS TIME.
--- NOTE | 2016-11-29 02:38 | NUR ---
[id number] PT. ARRIVED TO THE FLOOR VIA STRETCHER ACCOMPANIED BY ER NURSE. PT. ABLE TO AMBULATE TO SCALE AND BED WITH STEADY GAIT. PT. ORIENTED TO CALL LIGHT, ROOM, AND POC, VERBALIZES UNDERSTANDING. PT. IS A/A/OX3, BUT IS A POOR HISTORIAN OF PMH AT THIS TIME. PT. C/O 04/25 ABDOMINAL AND BACK PAIN, ASKED PT. IF SHE TOOK ANYTHING FOR PAIN AT HOME, PT. REPORTS SHE DOESNT REMEMBER. IV SITE PATENT TO RW AND ORDERED IVF STARTED, ORDERED HEPARIN ADMINISTERED AT THIS TIME WELL. ADMISSION ASSESSMENT COMPLETED. PT. HAS RUE WEAKNESS R/T PREVIOUS STROKE. TELEMETRY IS IN PLACE. WILL CALL MD FOR PAIN MEDICATION ORDERS. CALL LIGHT IS IN REACH. WILL CONTINUE TO MONITOR.
[2016-11-29 02:40] VITALS: BP 97/69
--- NOTE | 2016-11-29 02:40 | NUR ---
Admission Note Report Given to: MYLA SANTIGAO Transported by: Wheelchair X Stretcher Transported with: X Nurse Transporter X Patent IV X O2 X Doubling Machine Operator
--- NOTE | 2016-11-29 03:00 | NUR ---
CALLED AND SPOKE WITH DR. DUFFY FOR FURTHER ADMISSION ORDERS. NOTIFIED IM OF PT. C/O ABDOMINAL AND BACK PAIN 04/25, NEW ORDERS RECEIVED AND TO BE CARRIED OUT.
--- NOTE | 2016-11-29 03:25 | NUR ---
PT. MEDICATED WITH ORDERED PRN DILAUDID FOR ABDONIAL AND BACK PAIN 04/25, WILL REASSESS. PO FLUIDS OFFERED. CALL LIGHT IS IN REACH.
[2016-11-29 05:17] LABS: HEMATOCRIT 39.1 % (37.0-47.0); HEMOGLOBIN 13.1 g/dl (12.0-16.0); IMMATURE GRANULOCYTES 0.3 % (0.0-1.0); MEAN CELL VOLUME 94.2 fL CALC (80.0-100.0); MEAN CORPUSCULAR HGB 31.6 pG CALC (26.0-32.0); MEAN CORPUSCULAR HGB CONC 33.5 g/L CALC (32.0-36.0); NEUT# 3.89 thou/uL (2.00-7.15); RED BLOOD COUNT 4.15 mill/uL (4.20-5.60); RED CELL DISTRI WIDTH 12.4 % (11.5-15.5)
--- NOTE | 2016-11-29 05:20 | NUR ---
PT. IS RESTING IN BED WITH EYES CLOSED, NO DISTRESS NOTED. RESP EVEN AND UNLABORED. CALL LIGHT IS IN REACH. WILL CONTINUE TO MONITOR.
[2016-11-29 05:34] LABS: ALBUMIN 3.5 g/dL (3.2-5.0); ALKALINE PHOSPHATASE 89 u/l (38-126); ANION GAP 14 (6-22 (CALC)); BILIRUBIN, TOTAL 0.7 mg/dL (0.0-1.4); BUN 23 mg/dL (8-23); BUN/CREATININE RATIO 27 (12-20 (CALC)); CALCIUM 8.8 mg/dL (8.4-10.2); CARBON DIOXIDE 25 mmol/l (22-30); CHLORIDE 104 mmol/l (95-108); CREATININE 0.8 mg/dL (0.5-1.0); GFR > 60 ML/MIN (>=60 (CALC)); GFR FOR AFR.AMER. > 60 ML/MIN (>=60 (CALC)); GLUCOSE 122 mg/dL (82-115); POTASSIUM 4.4 mmol/l (3.5-5.1); SGOT/AST 33 u/l (9-36); SGPT/ALT 36 u/l (11-66); SODIUM 139 mmol/l (137-146)
--- NOTE | 2016-11-29 07:00 | NUR ---
REPORT RECIEVED FROM SHANTEL SANTIAGO; PT RESTING IN BED WITH EYES CLOSED; NO S/S OF DISTRESS NOTED; IVF INFUSING AT PRESCRIBED RATE; FALL PRECAUTIONS IN PLACE; CALL LIGHT WITHIN REACH; WILL CONTINUE TO MONITOR
[2016-11-29 08:46] LABS: URINE BILIRUBIN - DIPSTICK NEGATIVE (NEGATIVE); URINE BLOOD DIPSTICK NEGATIVE (NEGATIVE); URINE CLARITY CLEAR; URINE COLOR YELLOW; URINE GLUCOSE - DIPSTICK NEGATIVE (NEGATIVE); URINE KETONE NEGATIVE (NEGATIVE); URINE LEUK ESTERASE NEGATIVE (Negative); URINE NITRITE - DIPSTICK NEGATIVE (Negative); URINE PROTEIN - DIPSTICK NEGATIVE (NEG-TRACE); URINE UROBILINOGEN - DIPSTICK 0.2 E.U./dL (0.2)
[2016-11-29 09:45] VITALS: BP 66/46
[2016-11-29 11:10] VITALS: BP 91/62
--- NOTE | 2016-11-29 12:36 | NUR ---
PT SITTING UP IN CHAIR FOR LUNCH; NO S/S OF DISTRESS NOTED; IVF INFUSING AT PRESCRIBED RATE; TELE IN PLACE; PT DENIES ANY PAIN AT THIS TIME; CALL LIGHT WITHIN REACH; WILL CONTINUE TO MONITOR
[2016-11-29 15:05] VITALS: BP 100/66
[2016-11-29 19:25] VITALS: BP 108/72
--- NOTE | 2016-11-29 20:10 | NUR ---
PT RESTING IN SEMI FOWLERS POSITION;PT DENIES ANY PAIN OR DISCOMFORTS;IV SITE TO RIGHT WRIST INFUSING WELL;TELE MONITOR IN PLACE READING PACED 80;ASSESSMENT COMPLETED;MULTIPLE BRUISES NOTED THROUGHOUT BUE,SKIN INTACT;GENERALIZED WEAKNESS NOTED TO RT UPPER ARM;PT RE-EDUCATED ON ROOM AND CALL LIGHT SYSTEM AND VERBALIZES UNDERSTANDING;SAFETY PRECAUTIONS REINFORCED;PT DENIES ANY OTHER NEEDS AT THIS TIME;BED IN LOWEST POSITION ;WILL CONTINUE TO MONITOR
--- NOTE | 2016-11-29 22:30 | NUR ---
PT COMPLAINS OF BACK PAIN RATING 9/10 ON THE PAIN SCALE AND REQUESTS PRN PAIN MEDICATION;PT MEDICATED PER MAR;PT DENIES ANY OTHER NEEDS AT THIS TIME;CALL LIGHT WITHIN REACH;WILL CONTINUE TO MONITOR
[2016-11-30 00:30] VITALS: BP 101/77
--- NOTE | 2016-11-30 00:30 | NUR ---
PT APPEARS TO BE SLEEPING BUT WAKES EASILY;IV FLUIDS INFUSING WELL;TELE MONITOR IN PLACE;NO S/S OF DISTRESS NOTED;RESPIRATIONS EVEN AND UNLABORED;FALL PRECAUTIONS IN PLACE;BED IN LOWEST POSITION WITH CALL LIGHT IN REACH;WILL CONTINUE TO MONITOR
[2016-11-30 03:20] VITALS: BP 98/60
--- NOTE | 2016-11-30 03:40 | NUR ---
PT RESTING IN BED REQUESTS PRN PAIN MEDICATION FOR BACK PAIN RATING 9/10 ON THE PAIN SCALE;PT MEDICATED ACCORDINGLY PER MD ORDERS;IV FLUIDS INFUSING WELL;TELE MONITOR AND FALL PRECAUTIONS IN PLACE;PT DENIES ANY OTHER NEEDS AT THIS TIME;BED IN LOWEST POSITION WITH CALL LIGHT IN REACH;WILL CONTINUE TO MONITOR
[2016-11-30 05:25] LABS: HEMATOCRIT 34.2 % (37.0-47.0); HEMOGLOBIN 11.4 g/dl (12.0-16.0); IMMATURE GRANULOCYTES 0.3 % (0.0-1.0); MEAN CELL VOLUME 95.8 fL CALC (80.0-100.0); MEAN CORPUSCULAR HGB 31.9 pG CALC (26.0-32.0); MEAN CORPUSCULAR HGB CONC 33.3 g/L CALC (32.0-36.0); NEUT# 4.13 thou/uL (2.00-7.15); RED BLOOD COUNT 3.57 mill/uL (4.20-5.60); RED CELL DISTRI WIDTH 12.5 % (11.5-15.5)
[2016-11-30 05:50] LABS: ALBUMIN 2.9 g/dL (3.2-5.0); ALKALINE PHOSPHATASE 81 u/l (38-126); ANION GAP 11 (6-22 (CALC)); BILIRUBIN, TOTAL 0.3 mg/dL (0.0-1.4); BUN 21 mg/dL (8-23); BUN/CREATININE RATIO 23 (12-20 (CALC)); CALCIUM 8.3 mg/dL (8.4-10.2); CARBON DIOXIDE 25 mmol/l (22-30); CHLORIDE 105 mmol/l (95-108); CREATININE 0.9 mg/dL (0.5-1.0); GFR > 60 ML/MIN (>=60 (CALC)); GFR FOR AFR.AMER. > 60 ML/MIN (>=60 (CALC)); GLUCOSE 83 mg/dL (82-115); POTASSIUM 4.1 mmol/l (3.5-5.1); SGOT/AST 33 u/l (9-36); SGPT/ALT 38 u/l (11-66); SODIUM 137 mmol/l (137-146); TOTAL PROTEIN 5.1 g/dL (6.3-8.2)
--- NOTE | 2016-11-30 08:30 | NUR ---
DR. DUFFY IN TO SEE PT; PLAN OF CARE DISCUSSED
[2016-11-30 09:05] VITALS: BP 116/62
--- NOTE | 2016-11-30 11:20 | NUR ---
PT ASSISTED TO BRP; VOIDS WELL; NO COMPLAINTS VOICED; CALL MARTINES WITHIN REACH; WILL CONTINUE TO MONITOR.
[2016-11-30] MEDS ORDERED: LISINOPRIL20 M1 PO (12:21)
[2016-11-30] MEDS ORDERED: ALPRAZOLAM0.5 M2 PO (12:21)
[2016-11-30] MEDS ORDERED: catapres PO (12:21)
[2016-11-30] MEDS ORDERED: TRAMADOL HCL50 MG PO ×2 (12:21→12:22)
[2016-11-30] MEDS ORDERED: ALPRAZOLAM0.5 MG PO (12:22)
--- NOTE | 2016-11-30 13:19 | NUR ---
PT MEDICATED FOR C/O BACK PAIN 02/22
--- NOTE | 2016-11-30 14:15 | NUR ---
Discharge instructions given. Patient verbalizes understanding of same. Discharged in stable condition via Wheelchair to Home with family. All belongings sent with pt.
== END 2016-11-30 14:15 | disposition home or self-care (01) ==
LOC: ENPENDDIS → ED 22:04 → ED-I 11-29 01:51 → ED 11-29 02:06 → MS2 11-29 02:07
PROVIDERS: Emergency Medicine; ADMIT Internal Medicine Geriatric Medicine; ATTEND Internal Medicine Geriatric Medicine
DX: R10.32 Left lower quadrant pain (principal); M54.5 Low back pain; I10 Essential (primary) hypertension; I48.91 Unspecified atrial fibrillation; I25.10 Atherosclerotic heart disease of native coronary artery without angina pectoris; J44.9 Chronic obstructive pulmonary disease, unspecified; I69.951 Hemiplegia and hemiparesis following unspecified cerebrovascular disease affecting right dominant side; K21.9 Gastro-esophageal reflux disease without esophagitis; M19.90 Unspecified osteoarthritis, unspecified site; F41.9 Anxiety disorder, unspecified; F32.9 Major depressive disorder, single episode, unspecified; G89.4 Chronic pain syndrome; Z91.81 History of falling; Z86.711 Personal history of pulmonary embolism; Z95.0 Presence of cardiac pacemaker; Z87.11 Personal history of peptic ulcer disease

== ENCOUNTER 2016-12-09 20:49 | Observation (INO) | payer MEDICARE ==
[~2016-12-09] VITALS: Ht 152.4 cm; Wt 51.7 kg
[~2016-12-09 20:49] MED LIST changes: +ALPRAZOLAM0.5 MG PO
--- NOTE | 2016-12-09 20:56 | NUR ---
PT STATES SHE HAS BEEN FEELING WEAK OFF AND ON FOR TWO MONTHS. 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 SHE SAID SHE HAS BEEN TO SEE DR. DUFFY LAST WEEK BUT HE DIDNT DO ANYTHING FOR HER DIFFERENTLY. NO DIARRHEA, NO VOMITING.
[2016-12-09 21:32] LABS: HEMOGLOBIN 14.5 g/dl (12.0-16.0); IMMATURE GRANULOCYTES 0.3 % (0.0-1.0); MEAN CELL VOLUME 91.1 fL CALC (80.0-100.0); MEAN CORPUSCULAR HGB 32.2 pG CALC (26.0-32.0); MEAN CORPUSCULAR HGB CONC 35.4 g/L CALC (32.0-36.0); NEUT# 7.26 thou/uL (2.00-7.15); RED BLOOD COUNT 4.5 mill/uL (4.20-5.60); RED CELL DISTRI WIDTH 12.5 % (11.5-15.5)
[2016-12-09 21:49] LABS: PROTHROMBIN TIME 10.5 SECONDS (9.0-12.5)
[2016-12-09 21:50] LABS: ALBUMIN 3.7 g/dL (3.2-5.0); ALKALINE PHOSPHATASE 104 u/l (38-126); ANION GAP 16 (6-22 (CALC)); BILIRUBIN, TOTAL 0.5 mg/dL (0.0-1.4); BUN 17 mg/dL (8-23); BUN/CREATININE RATIO 17 (12-20 (CALC)); CALCIUM 9.1 mg/dL (8.4-10.2); CARBON DIOXIDE 23 mmol/l (22-30); CHLORIDE 104 mmol/l (95-108); GFR 54 ML/MIN (>=60 (CALC)); GFR FOR AFR.AMER. > 60 ML/MIN (>=60 (CALC)); GLUCOSE 101 mg/dL (82-115); POTASSIUM 3.7 mmol/l (3.5-5.1); SGOT/AST 23 u/l (9-36); SGPT/ALT 30 u/l (11-66); SODIUM 139 mmol/l (137-146); TOTAL PROTEIN 6.3 g/dL (6.3-8.2)
[2016-12-09 22:02] LABS: MYOGLOBIN 30 ng/mL (0 - 62)
--- NOTE | 2016-12-09 22:06 | NUR ---
REORT RECEIEVED FORM EBEN FUNES. PT AWAITING CT RESULTS IN STABLE CONDITION. NO SIGNS OF DISTRESS NOTED AT THIS TIME.
--- NOTE | 2016-12-09 23:15 | NUR ---
ASLEEP IN NO DISTRESS.
--- NOTE | 2016-12-10 00:40 | NUR ---
REPORT TO NURSE PATTERSON ON MS THEN TO FLOOR
[2016-12-10 01:00] VITALS: BP 135/86
--- NOTE | 2016-12-10 01:00 | NUR ---
RECEIVED TO ROOM 281 VIA STRETCHER ACCOMPANIED BY ER NURSE, OUT OF STRETCHER TO STANDING SCALE THEN TO BED WITH UNSTEADY GAIT. C/O LOWER BACK PAIN 10/10, PT DOES NOT APPEAR TO BE IN DISTRESS. RESPIRATIONS EVEN AND UNLABORED. WILL CALL DR. DUFFY. ORIENTED TO BED CONTROLS AND CALL LIGHT.
--- NOTE | 2016-12-10 01:00 | NUR ---
TO MS VIA STRETCHER IN STABLE CONDITION
--- NOTE | 2016-12-10 03:05 | NUR ---
MEDICATED WITH ULTRAM AND XANAX FOR C/O BACK PAIN 03/25. RESPIRATIONS EVEN AND UNLABORED. NO DISTRESS NOTICED. ENCOURAGED TO USE CALL LIGHT FOR ASSISTANCE, PO FLUIDS IN REACH.
[2016-12-10 03:09] VITALS: BP 138/83
[2016-12-10 05:59] LABS: URINE BILIRUBIN - DIPSTICK NEGATIVE (NEGATIVE); URINE BLOOD DIPSTICK TRACE-INTACT (NEGATIVE); URINE CLARITY SLIGHT CLOUDY; URINE COLOR YELLOW; URINE GLUCOSE - DIPSTICK NEGATIVE (NEGATIVE); URINE KETONE NEGATIVE (NEGATIVE); URINE LEUK ESTERASE TRACE (NEGATIVE); URINE NITRITE - DIPSTICK NEGATIVE (Negative); URINE PH 5.5 (4.5-8.0); URINE PROTEIN - DIPSTICK NEGATIVE (NEG-TRACE); URINE SPECIFIC GRAVITY <=1.005; URINE UROBILINOGEN - DIPSTICK 0.2 E.U./dL (0.2)
[2016-12-10 07:21] VITALS: BP 124/72
--- NOTE | 2016-12-10 07:24 | NUR ---
BEDSIDE REPORT RECEIVED FROM MYLA PATTERSON. PLAN OF CARE DISCUSSED. REPORTING OF CONCERNS ENCOURAGED. CALL LIGHT REVIEWED AND IN REACH. PT AMBULATED TO RESTROOM. TOLERATED ACTIVITY WELL. STANDBY ASSIST ONLY. STEADY GAIT.
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
--- NOTE | 2016-12-10 11:25 | NUR ---
Patient decides to leave AMA. Multiple attempts made to ecourage patient to remain here for continued treatment. Explained to patient all risks of leaving against medical advice including . Pt verbalized understanding of all risks. Pt also encouraged to return to [facility] at any time, especially if symptoms continue or become worse. Pt verbalized understanding.
== END 2016-12-10 11:24 | disposition left against medical advice (07) ==
LOC: ED 20:49 → ED-I 12-10 00:01 → ED 12-10 00:19 → MS2 12-10 00:20
PROVIDERS: Emergency Medicine; ADMIT Internal Medicine Geriatric Medicine; ATTEND Internal Medicine Geriatric Medicine
DX: R53.1 Weakness (principal); R42 Dizziness and giddiness; I48.91 Unspecified atrial fibrillation; I25.10 Atherosclerotic heart disease of native coronary artery without angina pectoris; J45.909 Unspecified asthma, uncomplicated; J44.9 Chronic obstructive pulmonary disease, unspecified; G89.4 Chronic pain syndrome; M19.90 Unspecified osteoarthritis, unspecified site; F41.9 Anxiety disorder, unspecified; F32.9 Major depressive disorder, single episode, unspecified; Z86.73 Personal history of transient ischemic attack (TIA), and cerebral infarction without residual deficits; Z91.19 Patient's noncompliance with other medical treatment and regimen; Z91.81 History of falling; Z86.711 Personal history of pulmonary embolism; Z95.0 Presence of cardiac pacemaker

== ENCOUNTER 2017-01-08 20:48 | Emergency (ER) | payer MEDICARE ==
[~2017-01-08] VITALS: Ht 152.4 cm; Wt 50.0 kg
[2017-01-08] MEDS ORDERED: ULTRAM50 M1 PO (21:52)
[2017-01-08] MEDS ORDERED: CLONIDINE0.1 MG PO (22:58)
[2017-01-08] MEDS ORDERED: LISINOPRIL20 MG PO (22:58)
[2017-01-08 23:00] VITALS: BP 171/80
== END 2017-01-08 23:15 | disposition home or self-care (01) ==
LOC: ED 20:48
DX: S93.401A Sprain of unspecified ligament of right ankle, initial encounter (principal); I48.91 Unspecified atrial fibrillation; F41.9 Anxiety disorder, unspecified; I10 Essential (primary) hypertension; M19.90 Unspecified osteoarthritis, unspecified site; E05.90 Thyrotoxicosis, unspecified without thyrotoxic crisis or storm; W01.0XXA Fall on same level from slipping, tripping and stumbling without subsequent striking against object, initial encounter; Y92.008 Other place in unspecified non-institutional (private) residence as the place of occurrence of the external cause; Z95.0 Presence of cardiac pacemaker; Z86.73 Personal history of transient ischemic attack (TIA), and cerebral infarction without residual deficits

== ENCOUNTER 2017-01-11 12:26 | Inpatient (IN) | payer MEDICARE ==
[~2017-01-11] VITALS: Ht 152.4 cm; Wt 49.9 kg
[~2017-01-11 12:26] MED LIST changes: +CLONIDINE0.1 MG PO
[2017-01-11 13:13] LABS: HEMATOCRIT 43.1 % (37.0-47.0); HEMOGLOBIN 14.6 g/dl (12.0-16.0); MEAN CELL VOLUME 93.7 fL CALC (80.0-100.0); MEAN CORPUSCULAR HGB 31.7 pG CALC (26.0-32.0); MEAN CORPUSCULAR HGB CONC 33.9 g/L CALC (32.0-36.0); NEUT# 6.7 thou/uL (2.00-7.15); RED BLOOD COUNT 4.6 mill/uL (4.20-5.60); RED CELL DISTRI WIDTH 12.7 % (11.5-15.5)
[2017-01-11 13:25] LABS: ALBUMIN 4.2 g/dL (3.2-5.0); ALKALINE PHOSPHATASE 105 u/l (38-126); ANION GAP 17 (6-22 (CALC)); BILIRUBIN, TOTAL 1.2 mg/dL (0.0-1.4); BUN 12 mg/dL (8-23); BUN/CREATININE RATIO 18 (12-20 (CALC)); CALCIUM 9.5 mg/dL (8.4-10.2); CARBON DIOXIDE 26 mmol/l (22-30); CHLORIDE 104 mmol/l (95-108); CREATININE 0.7 mg/dL (0.5-1.0); GFR > 60 ML/MIN (>=60 (CALC)); GFR FOR AFR.AMER. > 60 ML/MIN (>=60 (CALC)); GLUCOSE 137 mg/dL (82-115); POTASSIUM 4.1 mmol/l (3.5-5.1); SGOT/AST 36 u/l (9-36); SGPT/ALT 37 u/l (11-66); SODIUM 142 mmol/l (137-146); TOTAL PROTEIN 6.8 g/dL (6.3-8.2)
[2017-01-11 19:30] VITALS: BP 107/61
[2017-01-11 19:50] VITALS: BP 122/76
[2017-01-11 23:42] VITALS: BP 99/57
[2017-01-12 04:00] VITALS: BP 107/66
[2017-01-12 06:09] LABS: HEMATOCRIT 37.8 % (37.0-47.0); HEMOGLOBIN 12.6 g/dl (12.0-16.0); IMMATURE GRANULOCYTES 0.1 % (0.0-1.0); MEAN CELL VOLUME 95.7 fL CALC (80.0-100.0); MEAN CORPUSCULAR HGB 31.9 pG CALC (26.0-32.0); MEAN CORPUSCULAR HGB CONC 33.3 g/L CALC (32.0-36.0); NEUT# 3.14 thou/uL (2.00-7.15); RED BLOOD COUNT 3.95 mill/uL (4.20-5.60); RED CELL DISTRI WIDTH 12.8 % (11.5-15.5)
[2017-01-12 06:27] LABS: ALBUMIN 3.5 g/dL (3.2-5.0); ALKALINE PHOSPHATASE 87 u/l (38-126); ANION GAP 12 (6-22 (CALC)); BILIRUBIN, TOTAL 0.7 mg/dL (0.0-1.4); BUN 18 mg/dL (8-23); BUN/CREATININE RATIO 23 (12-20 (CALC)); CALCULATED LDLCHOLESTEROL 96 mg/dL (62-129 (CALC)); CARBON DIOXIDE 31 mmol/l (22-30); CHLORIDE 104 mmol/l (95-108); CHOLESTEROL HDL RATIO 3.7 (<4.4 (CALC)); CREATININE 0.8 mg/dL (0.5-1.0); GFR > 60 ML/MIN (>=60 (CALC)); GFR FOR AFR.AMER. > 60 ML/MIN (>=60 (CALC)); GLUCOSE 96 mg/dL (82-115); HDL CHOLESTEROL 44 mg/dL (>=40); POTASSIUM 3.9 mmol/l (3.5-5.1); SGOT/AST 27 u/l (9-36); SGPT/ALT 33 u/l (11-66); SODIUM 143 mmol/l (137-146); TOTAL CHOLESTEROL 162 mg/dl (0-199); TOTAL PROTEIN 5.8 g/dL (6.3-8.2); TOTAL TRIGLYCERIDES 113 mg/dl (30-149); VLDL CHOLESTROL 23 mg/dl (0-48 (CALC))
[2017-01-12 07:19] VITALS: BP 116/71
[2017-01-12 12:00] VITALS: BP 115/65; BP 146/67
[2017-01-12 16:00] VITALS: BP 105/63
[2017-01-12 19:35] VITALS: BP 136/82
[2017-01-13 04:10] VITALS: BP 152/87
[2017-01-13 05:43] LABS: HEMATOCRIT 37.2 % (37.0-47.0); HEMOGLOBIN 12.5 g/dl (12.0-16.0); IMMATURE GRANULOCYTES 0.4 % (0.0-1.0); MEAN CELL VOLUME 94.9 fL CALC (80.0-100.0); MEAN CORPUSCULAR HGB 31.9 pG CALC (26.0-32.0); MEAN CORPUSCULAR HGB CONC 33.6 g/L CALC (32.0-36.0); NEUT# 8.84 thou/uL (2.00-7.15); RED BLOOD COUNT 3.92 mill/uL (4.20-5.60); RED CELL DISTRI WIDTH 12.6 % (11.5-15.5)
[2017-01-13 06:04] LABS: ANION GAP 15 (6-22 (CALC)); BUN 17 mg/dL (8-23); BUN/CREATININE RATIO 23 (12-20 (CALC)); CALCIUM 9.3 mg/dL (8.4-10.2); CARBON DIOXIDE 24 mmol/l (22-30); CHLORIDE 105 mmol/l (95-108); CREATININE 0.8 mg/dL (0.5-1.0); GFR > 60 ML/MIN (>=60 (CALC)); GFR FOR AFR.AMER. > 60 ML/MIN (>=60 (CALC)); GLUCOSE 132 mg/dL (82-115); SODIUM 139 mmol/l (137-146)
[2017-01-13 08:04] VITALS: BP 127/76
[2017-01-13 12:13] VITALS: BP 101/60
[2017-01-13 16:00] VITALS: BP 127/71
[2017-01-13 19:59] VITALS: BP 123/70
[2017-01-14 00:15] VITALS: BP 134/81
[2017-01-14 04:25] VITALS: BP 142/77
[2017-01-14 08:20] VITALS: BP 145/56
[2017-01-14 17:00] VITALS: BP 140/57
[2017-01-14 19:07] VITALS: BP 133/77
[2017-01-14 23:40] VITALS: BP 119/65
[2017-01-15 03:00] VITALS: BP 140/78
[2017-01-15 08:50] VITALS: BP 134/77
[2017-01-15] MEDS ORDERED: OXYCODONE/ACETA1 TA8 PO (10:26)
== END 2017-01-15 10:52 | DRG 563 ==
LOC: ENPENDDIS → ED 12:26 → ED-I 13:52 → ED 14:24 → MS2 14:25 → ED 14:25 → UNDODEPER 01-12 16:05 → MS2 01-12 17:17
PROVIDERS: Emergency Medicine; ADMIT Internal Medicine Geriatric Medicine; ATTEND Internal Medicine Geriatric Medicine
DX: S82.844A Nondisplaced bimalleolar fracture of right lower leg, initial encounter for closed fracture (principal); J44.9 Chronic obstructive pulmonary disease, unspecified; F19.20 Other psychoactive substance dependence, uncomplicated; I10 Essential (primary) hypertension; G89.4 Chronic pain syndrome; I25.10 Atherosclerotic heart disease of native coronary artery without angina pectoris; M19.90 Unspecified osteoarthritis, unspecified site; F41.9 Anxiety disorder, unspecified; F32.9 Major depressive disorder, single episode, unspecified; J45.909 Unspecified asthma, uncomplicated; W01.0XXA Fall on same level from slipping, tripping and stumbling without subsequent striking against object, initial encounter; Y92.008 Other place in unspecified non-institutional (private) residence as the place of occurrence of the external cause; Z95.0 Presence of cardiac pacemaker; Z86.73 Personal history of transient ischemic attack (TIA), and cerebral infarction without residual deficits
CPT/HCPCS: Q9967

== ENCOUNTER 2017-02-15 11:27 | Emergency (ER) | payer MEDICARE ==
[~2017-02-15] VITALS: Ht 152.4 cm; Wt 55.0 kg
[~2017-02-15 11:27] MED LIST changes: +OXYCODONE/ACETA1 TA8 PO
[2017-02-15 12:04] LABS: URINE BILIRUBIN - DIPSTICK NEGATIVE (NEGATIVE); URINE BLOOD DIPSTICK TRACE-LYSED (NEGATIVE); URINE CLARITY CLEAR; URINE COLOR YELLOW; URINE GLUCOSE - DIPSTICK NEGATIVE (NEGATIVE); URINE KETONE NEGATIVE (NEGATIVE); URINE LEUK ESTERASE NEGATIVE (NEGATIVE); URINE NITRITE - DIPSTICK NEGATIVE (Negative); URINE PROTEIN - DIPSTICK NEGATIVE (NEG-TRACE); URINE UROBILINOGEN - DIPSTICK 0.2 E.U./dL (0.2)
[2017-02-15 12:22] LABS: HEMATOCRIT 45.4 % (37.0-47.0); HEMOGLOBIN 15.1 g/dl (12.0-16.0); IMMATURE GRANULOCYTES 0.4 % (0.0-1.0); MEAN CELL VOLUME 94.2 fL CALC (80.0-100.0); MEAN CORPUSCULAR HGB 31.3 pG CALC (26.0-32.0); MEAN CORPUSCULAR HGB CONC 33.3 g/L CALC (32.0-36.0); NEUT# 9.09 thou/uL (2.00-7.15); RED BLOOD COUNT 4.82 mill/uL (4.20-5.60); RED CELL DISTRI WIDTH 12.8 % (11.5-15.5)
[2017-02-15 12:44] LABS: ALBUMIN 4.9 g/dL (3.2-5.0); ALKALINE PHOSPHATASE 136 u/l (38-126); ANION GAP 21 (6-22 (CALC)); BILIRUBIN, TOTAL 0.7 mg/dL (0.0-1.4); BUN 14 mg/dL (8-23); BUN/CREATININE RATIO 24 (12-20 (CALC)); CALCIUM 9.9 mg/dL (8.4-10.2); CARBON DIOXIDE 23 mmol/l (22-30); CHLORIDE 109 mmol/l (95-108); CREATININE 0.6 mg/dL (0.5-1.0); GFR > 60 ML/MIN (>=60 (CALC)); GFR FOR AFR.AMER. > 60 ML/MIN (>=60 (CALC)); GLUCOSE 122 mg/dL (82-115); POTASSIUM 4.4 mmol/l (3.5-5.1); SGOT/AST 30 u/l (9-36); SGPT/ALT 37 u/l (11-66); SODIUM 148 mmol/l (137-146); TOTAL PROTEIN 7.7 g/dL (6.3-8.2)
[2017-02-15] MEDS ORDERED: ULTRAM50 M1 PO (12:52)
[2017-02-15 17:02] VITALS: BP 140/68
== END 2017-02-15 17:11 | disposition home or self-care (01) ==
LOC: ED 11:27
PROVIDERS: Emergency Medicine
DX: S92.901D Unspecified fracture of right foot, subsequent encounter for fracture with routine healing (principal); I10 Essential (primary) hypertension; I48.91 Unspecified atrial fibrillation; F41.9 Anxiety disorder, unspecified; G89.29 Other chronic pain; M54.9 Dorsalgia, unspecified; M19.90 Unspecified osteoarthritis, unspecified site; E05.90 Thyrotoxicosis, unspecified without thyrotoxic crisis or storm; X58.XXXD Exposure to other specified factors, subsequent encounter; Z95.0 Presence of cardiac pacemaker; Z86.73 Personal history of transient ischemic attack (TIA), and cerebral infarction without residual deficits

== ENCOUNTER 2017-02-17 14:12 | Observation (INO) | payer MEDICARE ==
[~2017-02-17] VITALS: Ht 152.4 cm; Wt 51.2 kg
[2017-02-17 15:03] LABS: HEMATOCRIT 44.7 % (37.0-47.0); HEMOGLOBIN 15.2 g/dl (12.0-16.0); IMMATURE GRANULOCYTES 0.3 % (0.0-1.0); MEAN CELL VOLUME 94.3 fL CALC (80.0-100.0); MEAN CORPUSCULAR HGB 32.1 pG CALC (26.0-32.0); NEUT# 6.37 thou/uL (2.00-7.15); RED BLOOD COUNT 4.74 mill/uL (4.20-5.60); RED CELL DISTRI WIDTH 12.6 % (11.5-15.5)
[2017-02-17 15:20] LABS: ALBUMIN 4.5 g/dL (3.2-5.0); ALKALINE PHOSPHATASE 108 u/l (38-126); ANION GAP 16 (6-22 (CALC)); BUN 15 mg/dL (8-23); BUN/CREATININE RATIO 24 (12-20 (CALC)); CALCIUM 9.8 mg/dL (8.4-10.2); CARBON DIOXIDE 24 mmol/l (22-30); CHLORIDE 109 mmol/l (95-108); CREATININE 0.6 mg/dL (0.5-1.0); GFR > 60 ML/MIN (>=60 (CALC)); GFR FOR AFR.AMER. > 60 ML/MIN (>=60 (CALC)); GLUCOSE 94 mg/dL (82-115); POTASSIUM 4.2 mmol/l (3.5-5.1); SGOT/AST 24 u/l (9-36); SGPT/ALT 38 u/l (11-66); SODIUM 145 mmol/l (137-146); TOTAL PROTEIN 7.3 g/dL (6.3-8.2)
[2017-02-17 16:12] LABS: URINE BILIRUBIN - DIPSTICK NEGATIVE (NEGATIVE); URINE BLOOD DIPSTICK TRACE-LYSED (NEGATIVE); URINE CLARITY CLEAR; URINE COLOR YELLOW; URINE GLUCOSE - DIPSTICK NEGATIVE (NEGATIVE); URINE KETONE NEGATIVE (NEGATIVE); URINE LEUK ESTERASE NEGATIVE (NEGATIVE); URINE NITRITE - DIPSTICK NEGATIVE (Negative); URINE PH 6.5 (4.5-8.0); URINE PROTEIN - DIPSTICK NEGATIVE (NEG-TRACE); URINE UROBILINOGEN - DIPSTICK 0.2 E.U./dL (0.2)
[2017-02-17 16:15] LABS: BARBITURATES NEGATIVE (NEGATIVE); COCAINE NEGATIVE (NEGATIVE); METHADONE NEGATIVE (NEGATIVE); OXCYCODONE NEGATIVE (NEGATIVE); TETRAHYDROCANNABIONOL POSITIVE (NEGATIVE); TRICYLIC ANTIDEPRESSANTS NEGATIVE (NEGATIVE)
[2017-02-17 18:25] VITALS: BP 133/75
[2017-02-17 20:15] VITALS: BP 101/60
[2017-02-17 23:45] VITALS: BP 101/66
[2017-02-18 04:44] VITALS: BP 121/65
[2017-02-18 06:09] VITALS: BP 101/50
[2017-02-18 06:19] LABS: HEMATOCRIT 42.5 % (37.0-47.0); IMMATURE GRANULOCYTES 0.4 % (0.0-1.0); MEAN CELL VOLUME 96.4 fL CALC (80.0-100.0); MEAN CORPUSCULAR HGB 31.7 pG CALC (26.0-32.0); MEAN CORPUSCULAR HGB CONC 32.9 g/L CALC (32.0-36.0); NEUT# 3.93 thou/uL (2.00-7.15); RED BLOOD COUNT 4.41 mill/uL (4.20-5.60); RED CELL DISTRI WIDTH 12.8 % (11.5-15.5)
[2017-02-18 06:38] LABS: ALBUMIN 3.6 g/dL (3.2-5.0); ALKALINE PHOSPHATASE 81 u/l (38-126); ANION GAP 14 (6-22 (CALC)); BILIRUBIN, TOTAL 0.7 mg/dL (0.0-1.4); BUN 21 mg/dL (8-23); BUN/CREATININE RATIO 29 (12-20 (CALC)); CALCIUM 8.9 mg/dL (8.4-10.2); CARBON DIOXIDE 24 mmol/l (22-30); CHLORIDE 109 mmol/l (95-108); CREATININE 0.7 mg/dL (0.5-1.0); GFR > 60 ML/MIN (>=60 (CALC)); GFR FOR AFR.AMER. > 60 ML/MIN (>=60 (CALC)); GLUCOSE 108 mg/dL (82-115); SGOT/AST 20 u/l (9-36); SGPT/ALT 30 u/l (11-66); SODIUM 143 mmol/l (137-146)
[2017-02-18 07:30] VITALS: BP 98/60
[2017-02-18 15:16] VITALS: BP 121/67
[2017-02-18] MEDS ORDERED: OXYCODONE/ACETA1 TA8 PO (17:33)
[2017-02-18] MEDS ORDERED: ALPRAZOLAM0.5 M2 PO (17:33)
[2017-02-18] MEDS ORDERED: catapres PO (17:33)
[2017-02-18] MEDS ORDERED: AMLODIPINE BESYL5 MG PO (17:33)
== END 2017-02-18 17:40 ==
LOC: ENPENDDIS → ED 14:12 → ED-I 15:08 → ED 16:14 → MS2 16:15
PROVIDERS: Emergency Medicine; ADMIT Internal Medicine Geriatric Medicine; ATTEND Internal Medicine Geriatric Medicine
PROC: 2W3QX1Z Immobilization of Right Lower Leg using Splint (ICD-10-PCS; principal; 2017-02-17)
DX: S82.831A Other fracture of upper and lower end of right fibula, initial encounter for closed fracture (principal); I25.10 Atherosclerotic heart disease of native coronary artery without angina pectoris; I11.0 Hypertensive heart disease with heart failure; I50.9 Heart failure, unspecified; J44.9 Chronic obstructive pulmonary disease, unspecified; K21.9 Gastro-esophageal reflux disease without esophagitis; F41.9 Anxiety disorder, unspecified; M19.011 Primary osteoarthritis, right shoulder; G89.29 Other chronic pain; M54.5 Low back pain; M81.0 Age-related osteoporosis without current pathological fracture; E03.9 Hypothyroidism, unspecified; I69.931 Monoplegia of upper limb following unspecified cerebrovascular disease affecting right dominant side; X58.XXXA Exposure to other specified factors, initial encounter; Z86.711 Personal history of pulmonary embolism; Z95.0 Presence of cardiac pacemaker

== ENCOUNTER 2017-04-28 11:34 | Inpatient (IN) | payer MEDICARE ==
[~2017-04-28] VITALS: Ht 152.4 cm; Wt 53.5 kg
[~2017-04-28 11:34] MED LIST changes: +AMLODIPINE BESYL5 MG PO
--- NOTE | 2017-04-28 11:52 | NUR ---
PT ARRIVED TO FLOOR VIA WHEELCHAIR ACCOMPANIED BY VOLUNTEER AND SISTER. PT AMBULATES INDEPENDENTLY. STEADY GAIT. REPORTS CHRONIC BACK PAIN. REPORTING OF CONCERNS ENCOURAGED. PT STATES "I JUST CANT BREATH GOOD AND KNEW I WAS SICK." PLAN OF CARE DISCUSSED. PT ORIENTED TO ROOM AND EQUIPMENT. CALL LIGHT REVIEWED AND IN REACH. PT STATES UNDERSTANDING.
[2017-04-28 12:00] VITALS: BP 199/114
[2017-04-28 13:04] LABS: HEMATOCRIT 38.2 % (37.0-47.0); MEAN CELL VOLUME 93.9 fL CALC (80.0-100.0); MEAN CORPUSCULAR HGB 31.9 pG CALC (26.0-32.0); RED BLOOD COUNT 4.07 mill/uL (4.20-5.60); RED CELL DISTRI WIDTH 12.1 % (11.5-15.5)
[2017-04-28 13:21] LABS: ANION GAP 13 (6-22 (CALC)); BUN 8 mg/dL (8-23); BUN/CREATININE RATIO 14 (12-20 (CALC)); CALCIUM 8.8 mg/dL (8.4-10.2); CARBON DIOXIDE 30 mmol/l (22-30); CHLORIDE 104 mmol/l (95-108); CREATININE 0.6 mg/dL (0.5-1.0); GFR > 60 ML/MIN (>=60 (CALC)); GFR FOR AFR.AMER. > 60 ML/MIN (>=60 (CALC)); GLUCOSE 94 mg/dL (82-115); POTASSIUM 3.1 mmol/l (3.5-5.1); SODIUM 144 mmol/l (137-146)
[2017-04-28 13:47] LABS: URINE BILIRUBIN - DIPSTICK NEGATIVE (NEGATIVE); URINE BLOOD DIPSTICK NEGATIVE (NEGATIVE); URINE CLARITY CLEAR; URINE COLOR YELLOW; URINE GLUCOSE - DIPSTICK NEGATIVE (NEGATIVE); URINE KETONE NEGATIVE (NEGATIVE); URINE LEUK ESTERASE NEGATIVE (Negative); URINE NITRITE - DIPSTICK NEGATIVE (Negative); URINE PROTEIN - DIPSTICK NEGATIVE (NEG-TRACE); URINE UROBILINOGEN - DIPSTICK 0.2 E.U./dL (0.2)
[2017-04-28 15:18] VITALS: BP 189/104
[2017-04-28] MEDS ORDERED: PERCOCET 10/31 COMBO PO (16:36)
[2017-04-28] MEDS ORDERED: TEMAZEPAM15 MG PO (16:36)
[2017-04-28] MEDS ORDERED: XANAX0.5 MG PO (16:36)
[2017-04-28] MEDS ORDERED: TRAMADOL HCL50 MG PO (16:37)
[2017-04-28] MEDS ORDERED: AMLODIPINE5 MG PO (17:02)
--- NOTE | 2017-04-28 17:56 | NUR ---
PT SITTING UPRIGHT IN BED. DENIES COMPLAINTS. STATES "I HAVENT FELT THIS GOOD IN A MONTH."
--- NOTE | 2017-04-28 19:40 | NUR ---
PT RESTING IN SEMI FOWLERS POSITION;PT COMPLAINS OF BACK PAIN RATING 8/10 ON THE PAIN SCALE AND REQUESTS PRN PAIN MEDICATION;PRN PERCOCET ADMINISTERED AT THIS TIME;ASSESSMENT COMPLETED;#24G TO LEFT FOREARM FLUSHED AND PATENT;I.S. AT BEDSIDE WITH GOAL SET TO 1500;PT DEMONSTRATED USE OF I.S. AND EDUCATED TO USE X10 PER/HR;TELE MONITOR IN PLACE;PT DENIES ANY OTHER NEEDS AT THIS TIME;SAFETY PRECAUTIONS REINFORCED;PT EDUCATED TO CALL FOR ASSISTANCE IF NEEDED;FALL PRECAUTIONS IN PLACE WITH BED IN THE LOWEST POSITION;CALL LIGHT IN REACH;WILL CONTINUE TO MONITOR
[2017-04-28 19:50] VITALS: BP 123/67
--- NOTE | 2017-04-29 00:30 | NUR ---
PT RESTING IN SEMI FOWLERS POSITION;RESPIRATIONS EVEN AND UNLABORED ON 02 @ 2L VIA NC;PT DENIES ANY PAIN OR DISCOMFORTS;VS OBTAINED BY CYNDI BEAN;PT DENIES ANY NEEDS AT THIS TIME;FALL PRECAUTIONS IN PLACE;CALL LIGHT IN REACH;WILL CONTINUE TO MONITOR
[2017-04-29 00:40] VITALS: BP 112/71
[2017-04-29 04:00] VITALS: BP 124/72
--- NOTE | 2017-04-29 04:10 | NUR ---
PT RESTING IN SEMI FOWLERS POSITION;PT COMPLAINS OF BACK PAIN RATING 9/10 ON THE PAIN SCALE AND REQUESTS PRN PAIN MEDICATION;PT MEDICATED WITH PRN PERCOCET;RESPIRATIONS EVEN AND UNLABORED ON 02 HUM.@ 2L;PT DENIES ANY OTHER NEEDS AT THIS TIME;CALL LIGHT IN REACH;WILL CONTINUE TO MONITOR
[2017-04-29 06:03] LABS: HEMATOCRIT 39.4 % (37.0-47.0); HEMOGLOBIN 13.1 g/dl (12.0-16.0); IMMATURE GRANULOCYTES 0.5 % (0.0-1.0); MEAN CELL VOLUME 94.3 fL CALC (80.0-100.0); MEAN CORPUSCULAR HGB 31.3 pG CALC (26.0-32.0); MEAN CORPUSCULAR HGB CONC 33.2 g/L CALC (32.0-36.0); NEUT# 11.33 thou/uL (2.00-7.15); RED BLOOD COUNT 4.18 mill/uL (4.20-5.60); RED CELL DISTRI WIDTH 11.9 % (11.5-15.5)
[2017-04-29 06:24] LABS: ALBUMIN 3.7 g/dL (3.2-5.0); ALKALINE PHOSPHATASE 95 u/l (38-126); ANION GAP 17 (6-22 (CALC)); BILIRUBIN, TOTAL 0.5 mg/dL (0.0-1.4); BUN 15 mg/dL (8-23); BUN/CREATININE RATIO 26 (12-20 (CALC)); CALCIUM 9.2 mg/dL (8.4-10.2); CALCULATED LDLCHOLESTEROL 97 mg/dL (62-129 (CALC)); CARBON DIOXIDE 25 mmol/l (22-30); CHLORIDE 104 mmol/l (95-108); CHOLESTEROL HDL RATIO 3.1 (<4.4 (CALC)); CREATININE 0.6 mg/dL (0.5-1.0); GFR > 60 ML/MIN (>=60 (CALC)); GFR FOR AFR.AMER. > 60 ML/MIN (>=60 (CALC)); GLUCOSE 162 mg/dL (82-115); HDL CHOLESTEROL 51 mg/dL (>=40); POTASSIUM 4.5 mmol/l (3.5-5.1); SGOT/AST 17 u/l (9-36); SGPT/ALT 25 u/l (11-66); SODIUM 141 mmol/l (137-146); TOTAL CHOLESTEROL 158 mg/dl (0-199); TOTAL PROTEIN 6.5 g/dL (6.3-8.2); TOTAL TRIGLYCERIDES 53 mg/dl (30-149); VLDL CHOLESTROL 11 mg/dl (0-48 (CALC))
[2017-04-29 07:48] VITALS: BP 118/73
--- NOTE | 2017-04-29 12:32 | NUR ---
PT SITTING UPRIGHT IN BED. DENIES PAIN AND COMPLAINTS. STATES "IM FEELING SO MUCH BETTER".
[2017-04-29 15:44] VITALS: BP 109/60
--- NOTE | 2017-04-29 16:50 | NUR ---
PT SITTING UPRIGHT IN BED. IVS LEAKING. NEW SITE OBTAINED BY SHANTEL POLANCO.
--- NOTE | 2017-04-29 16:51 | NUR ---
assisted pt to the recliner, call light in reach.
[2017-04-29 19:05] VITALS: BP 108/61
[2017-04-29 20:20] VITALS: BP 125/66
--- NOTE | 2017-04-29 20:20 | NUR ---
PT REQUESTS PRN PAIN MEDICATION FOR BACK PAIN RATING 9/10 ON THE PAIN SCALE;PT MEDICATED WITH PRN PERCOCET;ASSESSMENT COMPLETED;#24G TO LEFT HAND FLUSHED AND PATENT;SKIN INTACT;PT A&O X3;TELE MONITOR IN PLACE;PT DENIES ANY NEEDS AT THIS TIME;FALL PRECAUTIONS NOTED WITH BED IN LOWEST POSITION;CALL LIGHT IN REACH;WILL CONTINUE TO MONITOR
--- NOTE | 2017-04-30 00:40 | NUR ---
PT RESTING IN SUPINE POSITION;PT DENIES ANY NEEDS AT THIS TIME;RESPIRATIONS EVEN AND UNLABORED ON RA;TELE MONITOR IN PLACE;PT RE-EDUCATED TO CALL FOR ASSISTANCE IF NEEDED;CALL LIGHT IN REACH;WILL CONTINUE TO MONITOR
[2017-04-30 00:50] VITALS: BP 111/67
--- NOTE | 2017-04-30 02:07 | NUR ---
PT COMPLAINS OF BACK PAIN RATING 9/10 ON THE PAIN SCALE AND REQUESTS PRN PAIN MEDICATION;PT MEDICATED WITH PRN PERCOCET AT THIS TIME;PT RE-POSITIONED INTO BED DENYING ANY OTHER NEEDS;FRESH WATER PROVIDED;CALL LIGHT IN REACH;WILL CONTINUE TO MONITOR
[2017-04-30 04:30] VITALS: BP 142/76
--- NOTE | 2017-04-30 05:49 | NUR ---
PT RESTING IN SEMI FOWLERS POSITION WATCHING TV;PT DENIES ANY PAIN OR DISCOMFORTS;RESPIRATIONS EVEN AND UNLABORED;TELE MONITOR IN PLACE;PT DENIES ANY NEEDS;FALL PRECAUTIONS IN PLACE;CALL LIGHT IN REACH;WILL CONTINUE TO MONITOR
[2017-04-30 06:17] LABS: HEMATOCRIT 39.2 % (37.0-47.0); HEMOGLOBIN 13.1 g/dl (12.0-16.0); IMMATURE GRANULOCYTES 1.3 % (0.0-1.0); MEAN CELL VOLUME 95.6 fL CALC (80.0-100.0); MEAN CORPUSCULAR HGB CONC 33.4 g/L CALC (32.0-36.0); RED CELL DISTRI WIDTH 12.2 % (11.5-15.5)
--- NOTE | 2017-04-30 06:20 | NUR ---
ELLA FROM THE LAB CALLED WITH A CRITICAL LAB, WBC 32.9; TO BE NOTIFIED
[2017-04-30 06:25] LABS: MANUAL DIFFERENTIAL YES; PLATELET COUNT 290 thou/uL (130-400)
--- NOTE | 2017-04-30 06:25 | NUR ---
NOTIFED OF CRITICAL WBC;REPEAT WBC AT THIS TIME PER
[2017-04-30 06:37] LABS: ALBUMIN 3.8 g/dL (3.2-5.0); ALKALINE PHOSPHATASE 109 u/l (38-126); ANION GAP 17 (6-22 (CALC)); BILIRUBIN, TOTAL 0.4 mg/dL (0.0-1.4); BUN 24 mg/dL (8-23); BUN/CREATININE RATIO 33 (12-20 (CALC)); CALCIUM 9.7 mg/dL (8.4-10.2); CARBON DIOXIDE 26 mmol/l (22-30); CHLORIDE 103 mmol/l (95-108); CREATININE 0.7 mg/dL (0.5-1.0); GFR > 60 ML/MIN (>=60 (CALC)); GFR FOR AFR.AMER. > 60 ML/MIN (>=60 (CALC)); GLUCOSE 127 mg/dL (82-115); POTASSIUM 5.1 mmol/l (3.5-5.1); SGOT/AST 45 u/l (9-36); SGPT/ALT 51 u/l (11-66); SODIUM 141 mmol/l (137-146); TOTAL PROTEIN 6.7 g/dL (6.3-8.2)
[2017-04-30 06:54] LABS: BAND 2 % (0-8)
--- NOTE | 2017-04-30 07:00 | NUR ---
RECEIVED BEDSIDE REPORT FROM CARYN LANZA. TRANSFERRED TO WHEELCHAIR WITH STAND BY ASSIST, TO RADIOLOGY ACCOMPANIED BY SANJUANA HANNA. RESPS EVEN AND UNLABORED ON ROOM AIR, TELE MONITOR IN PLACE. VOICES NO NEEDS AT THIS TIME. PLAN OF CARE DISCUSSED. SAFETY PRECAUTIONS REINFORCED. CALL LIGHT WITHIN REACH. BED IN LOWEST POSITION WITH WHEELS LOCKED. WILL CONTINUE TO MONITOR.
[2017-04-30 07:25] LABS: HEMATOCRIT 40.5 % (37.0-47.0); HEMOGLOBIN 13.7 g/dl (12.0-16.0); IMMATURE GRANULOCYTES 1.7 % (0.0-1.0); MEAN CELL VOLUME 95.7 fL CALC (80.0-100.0); MEAN CORPUSCULAR HGB 32.4 pG CALC (26.0-32.0); MEAN CORPUSCULAR HGB CONC 33.8 g/L CALC (32.0-36.0); PLATELET COUNT 292 thou/uL (130-400); RED BLOOD COUNT 4.23 mill/uL (4.20-5.60); RED CELL DISTRI WIDTH 12.2 % (11.5-15.5)
[2017-04-30 07:35] LABS: BAND 2 % (0-8); MANUAL DIFFERENTIAL YES
--- NOTE | 2017-04-30 07:35 | NUR ---
FROM RADIOLOGY VIA WHEELCHAIR.
[2017-04-30 07:43] VITALS: BP 164/68
--- NOTE | 2017-04-30 08:07 | NUR ---
SPOKE WITH DR DUFFY AT 0750 RE: LAB WORK OF CBC WITH DIFFERENTIAL. SPOKE WITH LAB TO MAKE SURE OF THE DIFFERENTIAL AND SPECIMEN WAS REDRAWN WAS AT 0705
--- NOTE | 2017-04-30 08:55 | NUR ---
DR DUFFY IN WITH PT, NEW ORDERS RECEIVED.
[2017-04-30 11:40] VITALS: BP 129/64
--- NOTE | 2017-04-30 12:00 | NUR ---
IN HIGH FOWLERS WATCHING TV. RESPS EVEN AND UNLABORED ON ROOM IAR, TELE MONITOR IN PLACE. DENIES PAIN OR DISCOMFORT. CALL LIGHT WITHIN REACH.
[2017-04-30 16:10] LABS: HEMATOCRIT 39.8 % (37.0-47.0); HEMOGLOBIN 13.4 g/dl (12.0-16.0); IMMATURE GRANULOCYTES 1.4 % (0.0-1.0); MEAN CELL VOLUME 95.4 fL CALC (80.0-100.0); MEAN CORPUSCULAR HGB 32.1 pG CALC (26.0-32.0); MEAN CORPUSCULAR HGB CONC 33.7 g/L CALC (32.0-36.0); PLATELET COUNT 298 thou/uL (130-400); RED BLOOD COUNT 4.17 mill/uL (4.20-5.60); RED CELL DISTRI WIDTH 12.4 % (11.5-15.5)
[2017-04-30 16:19] LABS: MANUAL DIFFERENTIAL YES
[2017-04-30 16:30] VITALS: BP 123/80
--- NOTE | 2017-04-30 17:00 | NUR ---
DR DUFFY NOTIFIED WBC 30.7, AWAITING NEW ORDERS.
[2017-04-30 17:18] LABS: BAND 4 % (0-8)
--- NOTE | 2017-04-30 18:51 | NUR ---
MEDICATED WITH PERCOCET FOR C/O 03/25 BACK PAIN. CALL LIGHT WITHIN REACH. WILL CONTINUE TO MONITOR.
[2017-04-30 19:00] VITALS: BP 149/76
--- NOTE | 2017-04-30 20:00 | NUR ---
PATIENT RESTING IN BED AT THIS TIME-AWAKE ALERT AND ORIENTEDX3. PATIENT STATES NO RELIEF FROM PERCOCET GIVEN EARLIER. PATIENT REFUSES TO HAVE NEW IV SITE PLACED AT THIS TIME. PATIENT STATES THAT SHE IS HOPING TO GO HOME IN THE AM. PATIENT STATES THAT SHE DID JUST HAVE A BM AND IS VOIDING JOHNATHAN URINE. PATIENT WITH OCC PRODUCTIVE COUGH WITH YELLOW SECREATIONS. SAFETY PRECAUTIONS REINFORCED. CALL LIGHT IN REACH. WILL CONT TO MONITOR.
[2017-05-01 00:30] VITALS: BP 147/85
--- NOTE | 2017-05-01 02:08 | NUR ---
PATIENT C/O SEVERE BACK PAIN 8/10 ON PAIN SCALE-MEDICATED WITH PERCOCET FOR PAIN AND WITH XANAX FOR ANXIETY. RESTING IN BED. SAFETY PRECAUTIONS REINFORCED. CALL LIGHT IN REACH. WILL CONT TO MONITOR.
[2017-05-01 03:59] VITALS: BP 131/75
--- NOTE | 2017-05-01 05:15 | NUR ---
APPEARS SLEEPING AT THIS TIME. CALL LIGHT IN REACH. WILL CONT TO MONITOR.
[2017-05-01 08:49] VITALS: BP 167/78
--- NOTE | 2017-05-01 10:10 | NUR ---
PT.RESTING IN BED W/NO S/S OF DISTRESS AT THIS TIME. IS IN GOOD SPIRITS AND HAPPY IT'S HER BIRTHDAY. PT.MEDICATED WITH AM MEDICATIONS AND ASSESSED. LUNGS CLEAR, NEURO'S INTACT, HISTORY OF STROKE W/MIN.RIGHT SIDED WEAKNESS AND OLD R.SHOULDER INJURY LIMITED RANGE OF MOTION, SKIN INTACT W/SMALL AMOUNT OF BRUISING, ABD.NON-TENDER W/ACTIVE BS, REPORTED NORMAL BM LAST NIGHT. DENIES ANY DISCOMFORT,PAIN OR ANY OTHER NEEDS AT THIS TIME. CALL LIGHT W/IN REACH AND LAB IS AT BS AT THIS TIME
[2017-05-01 10:35] LABS: HEMATOCRIT 42.1 % (37.0-47.0); HEMOGLOBIN 14.1 g/dl (12.0-16.0); IMMATURE GRANULOCYTES 1.7 % (0.0-1.0); MEAN CELL VOLUME 95.5 fL CALC (80.0-100.0); MEAN CORPUSCULAR HGB CONC 33.5 g/L CALC (32.0-36.0); NEUT# 21.87 thou/uL (2.00-7.15); RED BLOOD COUNT 4.41 mill/uL (4.20-5.60); RED CELL DISTRI WIDTH 12.4 % (11.5-15.5)
[2017-05-01 10:46] LABS: ANION GAP 16 (6-22 (CALC)); BUN 23 mg/dL (8-23); BUN/CREATININE RATIO 34 (12-20 (CALC)); CALCIUM 9.5 mg/dL (8.4-10.2); CARBON DIOXIDE 26 mmol/l (22-30); CHLORIDE 104 mmol/l (95-108); CREATININE 0.7 mg/dL (0.5-1.0); GFR > 60 ML/MIN (>=60 (CALC)); GFR FOR AFR.AMER. > 60 ML/MIN (>=60 (CALC)); GLUCOSE 163 mg/dL (82-115); SODIUM 142 mmol/l (137-146)
[2017-05-01] MEDS ORDERED: PREDNISOLONE SO10 MG PO (11:45)
[2017-05-01] MEDS ORDERED: Levaquin PO (11:46)
[2017-05-01 12:10] VITALS: BP 163/84
--- NOTE | 2017-05-01 12:15 | NUR ---
PT.HAND MOLDER AND CASTER REMOVED AND DISCHARGE ORDERS REVIEWED AND SIGNED, PT.SISTER CALLED/A VOICEMAIL WAS LEFT, PT.REPORTED THAT SHE ATTEMPTED TO CALL HER SISTER FOR [place]. PICK-UP ALSO. PT.IS AWAITING HER SISTER TO GET HERE TO PICK HER UP, SHE IS PROPPED UP IN BED WATCHING TV, ANXIOUS TO "SEE MY GRANDBABIES." SHE HAS BIRTHDAY BALLOONS AT BS TAHT HER SISTER BROUGHT.
--- NOTE | 2017-05-01 15:30 | NUR ---
PT.OFF FLOOR VIA WC IN GOOD CONDITION ACCOMPANIED BY STAFF AND FAMILY MEMBER.
== END 2017-05-01 15:30 | disposition home or self-care (01) | DRG 191 ==
LOC: MS2 11:34
PROVIDERS: ADMIT Internal Medicine Geriatric Medicine; ATTEND Internal Medicine Geriatric Medicine
DX: J44.0 Chronic obstructive pulmonary disease with (acute) lower respiratory infection (principal); F19.20 Other psychoactive substance dependence, uncomplicated; I48.91 Unspecified atrial fibrillation; J20.9 Acute bronchitis, unspecified; J44.1 Chronic obstructive pulmonary disease with (acute) exacerbation; I25.10 Atherosclerotic heart disease of native coronary artery without angina pectoris; I10 Essential (primary) hypertension; E78.5 Hyperlipidemia, unspecified; K21.9 Gastro-esophageal reflux disease without esophagitis; E03.9 Hypothyroidism, unspecified; F41.9 Anxiety disorder, unspecified; G89.4 Chronic pain syndrome; M19.011 Primary osteoarthritis, right shoulder; Z95.0 Presence of cardiac pacemaker; Z86.73 Personal history of transient ischemic attack (TIA), and cerebral infarction without residual deficits; Z87.11 Personal history of peptic ulcer disease; F32.9 Major depressive disorder, single episode, unspecified; Z91.14 Patient's other noncompliance with medication regimen; D72.829 Elevated white blood cell count, unspecified

== ENCOUNTER 2017-08-11 21:15 | Observation (INO) | payer MEDICARE ==
[~2017-08-11] VITALS: Ht 152.4 cm; Wt 56.0 kg
[~2017-08-11 21:15] MED LIST changes: +Levaquin PO; +PREDNISOLONE SO10 MG PO; +TEMAZEPAM15 MG PO; +XANAX0.5 MG PO
[2017-08-11 21:56] LABS: HEMATOCRIT 45.3 % (37.0-47.0); HEMOGLOBIN 15.3 g/dl (12.0-16.0); IMMATURE GRANULOCYTES 0.5 % (0.0-1.0); MEAN CELL VOLUME 93.6 fL CALC (80.0-100.0); MEAN CORPUSCULAR HGB 31.6 pG CALC (26.0-32.0); MEAN CORPUSCULAR HGB CONC 33.8 g/L CALC (32.0-36.0); NEUT# 12.47 thou/uL (2.00-7.15); RED BLOOD COUNT 4.84 mill/uL (4.20-5.60); RED CELL DISTRI WIDTH 12.7 % (11.5-15.5)
[2017-08-11 22:14] LABS: ALBUMIN 4.7 g/dL (3.2-5.0); ALKALINE PHOSPHATASE 126 u/l (38-126); ANION GAP 18 (6-22 (CALC)); BILIRUBIN, TOTAL 1.2 mg/dL (0.0-1.4); BUN 12 mg/dL (8-23); BUN/CREATININE RATIO 17 (12-20 (CALC)); CALCIUM 9.8 mg/dL (8.4-10.2); CARBON DIOXIDE 23 mmol/l (22-30); CHLORIDE 105 mmol/l (95-108); CREATININE 0.7 mg/dL (0.5-1.0); GFR > 60 ML/MIN (>=60 (CALC)); GFR FOR AFR.AMER. > 60 ML/MIN (>=60 (CALC)); GLUCOSE 143 mg/dL (82-115); POTASSIUM 3.7 mmol/l (3.5-5.1); SGOT/AST 25 u/l (9-36); SGPT/ALT 27 u/l (11-66); SODIUM 142 mmol/l (137-146); TOTAL PROTEIN 7.5 g/dL (6.3-8.2)
[2017-08-11 22:26] LABS: MYOGLOBIN 54 ng/mL (0 - 62)
[2017-08-12 00:20] VITALS: BP 137/70
[2017-08-12 03:17] LABS: URINE BLOOD DIPSTICK TRACE-LYSED (NEGATIVE); URINE COLOR YELLOW; URINE GLUCOSE - DIPSTICK NEGATIVE (NEGATIVE); URINE KETONE TRACE mg/dL (NEGATIVE); URINE LEUK ESTERASE NEGATIVE (NEGATIVE); URINE NITRITE - DIPSTICK NEGATIVE (Negative); URINE PH 5.5 (4.5-8.0); URINE PROTEIN - DIPSTICK 30 mg/dL (NEG-TRACE); URINE SPECIFIC GRAVITY >=1.030; URINE UROBILINOGEN - DIPSTICK 0.2 E.U./dL (0.2)
[2017-08-12 03:21] LABS: URINE BILIRUBIN - DIPSTICK NEGATIVE (NEGATIVE); URINE CLARITY CLEAR
[2017-08-12 03:32] LABS: URINE BACTERIA FEW hpf; URINE MUCUS MODERATE hpf (NONE-FEW); URINE SQUAMOUS EPITHELIAL CELL FEW EPI/hpf (0-FEW)
[2017-08-12 05:09] VITALS: BP 149/79
[2017-08-12 05:18] LABS: HEMATOCRIT 41.3 % (37.0-47.0); IMMATURE GRANULOCYTES 0.4 % (0.0-1.0); MEAN CORPUSCULAR HGB 31.5 pG CALC (26.0-32.0); MEAN CORPUSCULAR HGB CONC 33.9 g/L CALC (32.0-36.0); NEUT# 11.61 thou/uL (2.00-7.15); RED BLOOD COUNT 4.44 mill/uL (4.20-5.60); RED CELL DISTRI WIDTH 12.7 % (11.5-15.5)
[2017-08-12 05:37] LABS: ALBUMIN 3.8 g/dL (3.2-5.0); ALKALINE PHOSPHATASE 99 u/l (38-126); ANION GAP 17 (6-22 (CALC)); BILIRUBIN, TOTAL 0.8 mg/dL (0.0-1.4); BUN 16 mg/dL (8-23); BUN/CREATININE RATIO 23 (12-20 (CALC)); CALCIUM 9.5 mg/dL (8.4-10.2); CARBON DIOXIDE 23 mmol/l (22-30); CHLORIDE 105 mmol/l (95-108); CREATININE 0.7 mg/dL (0.5-1.0); GFR > 60 ML/MIN (>=60 (CALC)); GFR FOR AFR.AMER. > 60 ML/MIN (>=60 (CALC)); GLUCOSE 174 mg/dL (82-115); POTASSIUM 3.8 mmol/l (3.5-5.1); SGOT/AST 25 u/l (9-36); SGPT/ALT 21 u/l (11-66); SODIUM 142 mmol/l (137-146); TOTAL PROTEIN 6.2 g/dL (6.3-8.2)
[2017-08-12 08:20] VITALS: BP 169/87
[2017-08-12 15:53] VITALS: BP 161/72
[2017-08-12 19:15] VITALS: BP 107/70
[2017-08-12 21:43] VITALS: BP 104/56
[2017-08-13 04:25] VITALS: BP 97/60
[2017-08-13 06:30] VITALS: BP 140/80
[2017-08-13 06:53] LABS: HEMATOCRIT 37.4 % (37.0-47.0); HEMOGLOBIN 12.8 g/dl (12.0-16.0); IMMATURE GRANULOCYTES 3.6 % (0.0-1.0); MEAN CELL VOLUME 92.8 fL CALC (80.0-100.0); MEAN CORPUSCULAR HGB 31.8 pG CALC (26.0-32.0); MEAN CORPUSCULAR HGB CONC 34.2 g/L CALC (32.0-36.0); NEUT# 25.96 thou/uL (2.00-7.15); RED BLOOD COUNT 4.03 mill/uL (4.20-5.60); RED CELL DISTRI WIDTH 12.9 % (11.5-15.5)
[2017-08-13 07:13] LABS: ALBUMIN 3.4 g/dL (3.2-5.0); ALKALINE PHOSPHATASE 99 u/l (38-126); ANION GAP 15 (6-22 (CALC)); BILIRUBIN, TOTAL 0.3 mg/dL (0.0-1.4); BUN 36 mg/dL (8-23); BUN/CREATININE RATIO 40 (12-20 (CALC)); CALCIUM 9.7 mg/dL (8.4-10.2); CARBON DIOXIDE 23 mmol/l (22-30); CHLORIDE 105 mmol/l (95-108); CREATININE 0.9 mg/dL (0.5-1.0); GFR > 60 ML/MIN (>=60 (CALC)); GFR FOR AFR.AMER. > 60 ML/MIN (>=60 (CALC)); GLUCOSE 154 mg/dL (82-115); POTASSIUM 3.5 mmol/l (3.5-5.1); SGOT/AST 27 u/l (9-36); SGPT/ALT 38 u/l (11-66); SODIUM 140 mmol/l (137-146); TOTAL PROTEIN 5.7 g/dL (6.3-8.2)
[2017-08-13 08:57] VITALS: BP 103/62
[2017-08-13 16:52] VITALS: BP 105/58
[2017-08-13 19:10] VITALS: BP 118/61
[2017-08-13 21:51] VITALS: BP 133/65
[2017-08-14 05:30] VITALS: BP 130/72
[2017-08-14 08:15] VITALS: BP 152/77
[2017-08-14 10:20] LABS: HEMATOCRIT 42.8 % (37.0-47.0); HEMOGLOBIN 14.1 g/dl (12.0-16.0); IMMATURE GRANULOCYTES 5.1 % (0.0-1.0); MEAN CELL VOLUME 94.3 fL CALC (80.0-100.0); MEAN CORPUSCULAR HGB 31.1 pG CALC (26.0-32.0); MEAN CORPUSCULAR HGB CONC 32.9 g/L CALC (32.0-36.0); RED BLOOD COUNT 4.54 mill/uL (4.20-5.60)
[2017-08-14 10:25] LABS: PLATELET COUNT 252 thou/uL (130-400)
[2017-08-14 10:26] LABS: MANUAL DIFFERENTIAL YES
[2017-08-14 10:37] LABS: ANION GAP 17 (6-22 (CALC)); BUN 47 mg/dL (8-23); BUN/CREATININE RATIO 50 (12-20 (CALC)); CALCIUM 9.8 mg/dL (8.4-10.2); CARBON DIOXIDE 23 mmol/l (22-30); CHLORIDE 105 mmol/l (95-108); CREATININE 0.9 mg/dL (0.5-1.0); GFR > 60 ML/MIN (>=60 (CALC)); GFR FOR AFR.AMER. > 60 ML/MIN (>=60 (CALC)); GLUCOSE 178 mg/dL (82-115); POTASSIUM 3.8 mmol/l (3.5-5.1); SODIUM 141 mmol/l (137-146)
[2017-08-14 14:20] VITALS: BP 139/69
[2017-08-14 16:38] VITALS: BP 117/65
[2017-08-14 19:00] VITALS: BP 127/66
[2017-08-15 05:22] VITALS: BP 153/82
[2017-08-15 05:27] LABS: HEMATOCRIT 40.2 % (37.0-47.0); HEMOGLOBIN 13.3 g/dl (12.0-16.0); MEAN CELL VOLUME 95.3 fL CALC (80.0-100.0); MEAN CORPUSCULAR HGB 31.5 pG CALC (26.0-32.0); MEAN CORPUSCULAR HGB CONC 33.1 g/L CALC (32.0-36.0); NEUT# 20.24 thou/uL (2.00-7.15); RED BLOOD COUNT 4.22 mill/uL (4.20-5.60); RED CELL DISTRI WIDTH 13.1 % (11.5-15.5)
[2017-08-15 05:36] LABS: ALBUMIN 3.3 g/dL (3.2-5.0); ALKALINE PHOSPHATASE 92 u/l (38-126); ANION GAP 14 (6-22 (CALC)); BILIRUBIN, TOTAL 0.2 mg/dL (0.0-1.4); BUN 39 mg/dL (8-23); BUN/CREATININE RATIO 48 (12-20 (CALC)); CALCIUM 9.6 mg/dL (8.4-10.2); CARBON DIOXIDE 25 mmol/l (22-30); CHLORIDE 106 mmol/l (95-108); CREATININE 0.8 mg/dL (0.5-1.0); GFR > 60 ML/MIN (>=60 (CALC)); GFR FOR AFR.AMER. > 60 ML/MIN (>=60 (CALC)); GLUCOSE 127 mg/dL (82-115); POTASSIUM 4.1 mmol/l (3.5-5.1); SGOT/AST 51 u/l (9-36); SGPT/ALT 90 u/l (11-66); SODIUM 142 mmol/l (137-146); TOTAL PROTEIN 5.5 g/dL (6.3-8.2)
[2017-08-15 08:03] VITALS: BP 145/72
[2017-08-15] MEDS ORDERED: LEVAQUIN500 MG PO (09:44)
[2017-08-15] MEDS ORDERED: Levaquin PO (09:47)
== END 2017-08-15 12:37 | disposition home or self-care (01) ==
LOC: ED 21:15 → ED-I 23:00 → ED 23:25 → MS2 23:26
PROVIDERS: Emergency Medicine; ADMIT Internal Medicine Geriatric Medicine; ATTEND Internal Medicine Geriatric Medicine
DX: J44.1 Chronic obstructive pulmonary disease with (acute) exacerbation (principal); J44.0 Chronic obstructive pulmonary disease with (acute) lower respiratory infection; J20.9 Acute bronchitis, unspecified; I10 Essential (primary) hypertension; I25.10 Atherosclerotic heart disease of native coronary artery without angina pectoris; F11.20 Opioid dependence, uncomplicated; I48.91 Unspecified atrial fibrillation; K21.9 Gastro-esophageal reflux disease without esophagitis; G89.4 Chronic pain syndrome; E03.9 Hypothyroidism, unspecified; M81.0 Age-related osteoporosis without current pathological fracture; D72.829 Elevated white blood cell count, unspecified; F41.9 Anxiety disorder, unspecified; Z95.0 Presence of cardiac pacemaker; Z91.14 Patient's other noncompliance with medication regimen; Z86.711 Personal history of pulmonary embolism; Z86.73 Personal history of transient ischemic attack (TIA), and cerebral infarction without residual deficits; Z87.11 Personal history of peptic ulcer disease; R06.02 Shortness of breath
CPT/HCPCS: J1650

== ENCOUNTER 2018-10-01 09:34 | Observation (INO) | payer MEDICARE ==
[~2018-10-01] VITALS: Ht 152.4 cm; Wt 50.0 kg
[~2018-10-01 09:34] MED LIST changes: +AMLODIPINE10 MG PO; +ASPIRIN CHEWABL81 MG PO; +LEVAQUIN500 MG PO
--- NOTE | 2018-10-01 09:48 | NUR ---
PATIENT TO ROOM VIA EMS AND PHYSICIAN NOTIFIED OF PATIENT STATUS
--- NOTE | 2018-10-01 09:55 | NUR ---
going thru medications with pt, she states she is not taking any medications at this time. she also states she hasnt taken amlodipine for over a month because she ran out and hasnt been to a doctor to get more.
[2018-10-01 10:17] LABS: HEMATOCRIT 46.5 % (37.0-47.0); HEMOGLOBIN 15.7 g/dl (12.0-16.0); IMMATURE GRANULOCYTES 0.2 % (0.0-5.0); MEAN CELL VOLUME 94.1 fL CALC (80.0-100.0); MEAN CORPUSCULAR HGB 31.8 pG CALC (26.0-32.0); MEAN CORPUSCULAR HGB CONC 33.8 g/L CALC (32.0-36.0); NEUT# 4.6 thou/uL (2.00-7.15); RED BLOOD COUNT 4.94 mill/uL (4.20-5.60); RED CELL DISTRI WIDTH 12.7 % (11.5-15.5)
[2018-10-01 10:31] LABS: BUN 13 mg/dL (8-23); BUN/CREATININE RATIO 21 (12-20 (CALC)); CARBON DIOXIDE 23 mmol/l (22-30); CHLORIDE 106 mmol/l (95-108); CREATININE 0.6 mg/dL (0.5-1.0); GFR > 60 ML/MIN (>=60 (CALC)); GFR FOR AFR.AMER. > 60 ML/MIN (>=60 (CALC)); SODIUM 141 mmol/l (137-146)
[2018-10-01 10:43] LABS: ANION GAP 17 (6-22 (CALC)); POTASSIUM 4.8 mmol/l (3.5-5.1)
--- NOTE | 2018-10-01 10:50 | NUR ---
PT RESTING QUIETLY, BLOOD PRESSURE COMING DOWN
[2018-10-01 11:42] LABS: URINE BILIRUBIN - DIPSTICK NEGATIVE (NEGATIVE); URINE BLOOD DIPSTICK NEGATIVE (NEGATIVE); URINE COLOR YELLOW; URINE GLUCOSE - DIPSTICK NEGATIVE (NEGATIVE); URINE KETONE NEGATIVE (NEGATIVE); URINE LEUK ESTERASE NEGATIVE (NEGATIVE); URINE NITRITE - DIPSTICK NEGATIVE (Negative); URINE PH 5.5 (4.5-8.0); URINE PROTEIN - DIPSTICK NEGATIVE (NEG-TRACE); URINE UROBILINOGEN - DIPSTICK 0.2 E.U./dL (0.2)
[2018-10-01 11:58] LABS: BARBITURATES NEGATIVE (NEGATIVE); COCAINE NEGATIVE (NEGATIVE); METHADONE NEGATIVE (NEGATIVE); OXCYCODONE NEGATIVE (NEGATIVE); TETRAHYDROCANNABIONOL POSITIVE (NEGATIVE); TRICYLIC ANTIDEPRESSANTS NEGATIVE (NEGATIVE)
--- NOTE | 2018-10-01 12:32 | NUR ---
PT USING BEDPAN, PT RESTING QUIETLY, NO COMPLAINT OF PAIN OR WEAKNESS AT THIS TIME. BLOOD PRESSURE STABILIZED.
--- NOTE | 2018-10-01 12:45 | NUR ---
CALLED DR DUFFY AND LEFT MESSAGE FOR ORDER FOR ANOTHER DOSE OF BLOOD PRESSURE MEDICATION TO CONTROL BLOOD PRESSURE INCREASING.
--- NOTE | 2018-10-01 13:04 | NUR ---
VERBAL TELEPHONE ORDER GIVEN PER DR. DUFFY FOR CONIDINE 0.2 MG NOW AND O.1 MG FOR NEXT 3 HOURS TIMES 3
--- NOTE | 2018-10-01 13:45 | NUR ---
REPORT GIVEN TO MED SURG AND PT TAKEN BY STRETCHER TO FLOOR BY MED SURG NURSE, DUE TO CRITICAL PTS IN ER.
--- NOTE | 2018-10-01 14:07 | NUR ---
PT ARRIVED TO MS[facility] RM 281 VIA STRETCHER ACCOMPANIED BY CIVIL ENGINEER'S AIDE. PT AMBULATED WITH STEADY GAIT TO BATHROOM THEN TO BED, WEIGHT OBTAINED VIA BED. ORIENTED TO ROOM AND CALL LIGHT, DISCUSSED POC, PT IN AGREEMENT. IV TO LW OCCLUDED, IV SITE REMOVED. WILL START A NEW LINE. VSS, ADMISSION ASSESSMENT COMPLETED. LUNCH PROVIDED, CALL LIGHT IN REACH,CONTINUE TO MONITOR. PT REQUESTING PAIN MEDICATION, INFORMED PT THAT MD ORDERED IBUPROFEN AND TRAMADOL,PT STATES SHE CAN DO WITHOUT. CALL LIGHT IN REACH,CONTINUE TO MONITOR.
[2018-10-01 14:10] VITALS: BP 119/53
[2018-10-01 14:25] VITALS: BP 146/79
[2018-10-01 16:10] VITALS: BP 119/53
[2018-10-01 19:00] VITALS: BP 128/76
--- NOTE | 2018-10-01 19:27 | NUR ---
PATIENT RESTING IN BED AT THIS TIME-AWAKE ALERT AND C/O SEVER RIGHT SIDED BACK PAIN-STATES 10/10 ON PAIN SCALE. MEDICATED WITH ULTRAM 50MG PO FOR PAIN. TELE MONITOR IN PLACE. CALL LIGHT REACH. WILL CONT TO MONITOR.
--- NOTE | 2018-10-01 20:09 | NUR ---
PATIENT RESTING IN BED-ALERT AND ORIENTED. NOTIFIED PATIENT THAT SHE DID NEED IV SITE FOR PRN USE DUE TO THE FACT THAT SHE IS ON TELE AND IT IS PROTOCOL FOR PATIENT TO HAVE IV SITE ACCESS. PATIENT STATES NO THAT SHE DOESN'T WANT TO BE STUCK ANYMORE AND THAT SHE WANTS TO GO HOME. PATIENT WAS INSTRUCTED ON POSSIBLE RAMIFICATIONS AND OR ADVERSE OUTCOMES FROM LEAVING AMA. VERBALIZES UNDERSTAND AND STATES AGAIN THAT SHE WANTS TO GO HOME. PROVIDED WITH PHONE AND PATIENT CALLED [employer] FOR PICK-UP. PATIENT GOT DRESSED AND SIGNED AMA FORMS. TELE MONITOR REMOVED AND SENT BACK TO THE ER. PATIENT TRANSPORTED TO ER ENTRANCE VIA WHEELCHAIR BY STAFF. FAHAD CONTOUR GRINDER NOTIFIED AND DR. DUFFY NOTIFIED.
== END 2018-10-01 20:08 | disposition left against medical advice (07) ==
LOC: ED 09:34 → ED-I 11:40 → ED 11:55 → MS2 11:56
PROVIDERS: Family Medicine; ADMIT Internal Medicine Geriatric Medicine; ATTEND Internal Medicine Geriatric Medicine
DX: R07.89 Other chest pain (principal); R06.02 Shortness of breath; J44.1 Chronic obstructive pulmonary disease with (acute) exacerbation; I10 Essential (primary) hypertension; M19.90 Unspecified osteoarthritis, unspecified site; I48.91 Unspecified atrial fibrillation; I25.10 Atherosclerotic heart disease of native coronary artery without angina pectoris; F41.1 Generalized anxiety disorder; F32.9 Major depressive disorder, single episode, unspecified; K21.9 Gastro-esophageal reflux disease without esophagitis; K27.9 Peptic ulcer, site unspecified, unspecified as acute or chronic, without hemorrhage or perforation; E03.9 Hypothyroidism, unspecified; M81.0 Age-related osteoporosis without current pathological fracture; G89.4 Chronic pain syndrome; F19.20 Other psychoactive substance dependence, uncomplicated; Z86.711 Personal history of pulmonary embolism; Z95.0 Presence of cardiac pacemaker; Z86.73 Personal history of transient ischemic attack (TIA), and cerebral infarction without residual deficits; R53.1 Weakness
CPT/HCPCS: G0378

== ENCOUNTER 2018-11-28 18:16 | Emergency (ER) | payer MEDICARE ==
[~2018-11-28] VITALS: Ht 152.4 cm; Wt 45.0 kg
[2018-11-28] MEDS ORDERED: TRAMADOL HYDROC50 MG PO (19:39)
[2018-11-28 20:11] VITALS: BP 147/78
== END 2018-11-28 20:55 | disposition home or self-care (01) ==
LOC: ED 18:16
DX: S42.201A Unspecified fracture of upper end of right humerus, initial encounter for closed fracture (principal); S22.41XA Multiple fractures of ribs, right side, initial encounter for closed fracture; S81.811A Laceration without foreign body, right lower leg, initial encounter; S70.01XA Contusion of right hip, initial encounter; I10 Essential (primary) hypertension; J44.9 Chronic obstructive pulmonary disease, unspecified; W01.0XXA Fall on same level from slipping, tripping and stumbling without subsequent striking against object, initial encounter; Z95.0 Presence of cardiac pacemaker; Z86.73 Personal history of transient ischemic attack (TIA), and cerebral infarction without residual deficits

== ENCOUNTER 2019-01-10 01:44 | Observation (INO) | payer MEDICARE ==
[~2019-01-10] VITALS: Ht 152.4 cm; Wt 56.0 kg
[~2019-01-10 01:44] MED LIST changes: +TRAMADOL HYDROC50 MG PO
--- NOTE | 2019-01-10 01:47 | NUR ---
PATIENT TO ROOM 13, UNDRESSED INTO A GOWN, PLACED ON MONITOR. TRIAGE COMPLETED AT BEDSIDE.
--- NOTE | 2019-01-10 02:16 | NUR ---
PT UNABLE TO LIST MEDICATION STATES SHE TAKES A PINK PILL-
--- NOTE | 2019-01-10 02:27 | NUR ---
BREATHING TREATMENT GIVEN. BREATHING TECH. FOR GOOD DEPOSITION TO THE LUNGS.
[2019-01-10 02:28] LABS: URINE BILIRUBIN - DIPSTICK NEGATIVE (NEGATIVE); URINE BLOOD DIPSTICK TRACE-LYSED (NEGATIVE); URINE COLOR YELLOW; URINE GLUCOSE - DIPSTICK NEGATIVE (NEGATIVE); URINE KETONE 15 mg/dL (NEGATIVE); URINE LEUK ESTERASE NEGATIVE (NEGATIVE); URINE NITRITE - DIPSTICK NEGATIVE (Negative); URINE PH 6.5 (4.5-8.0); URINE PROTEIN - DIPSTICK NEGATIVE (NEG-TRACE); URINE UROBILINOGEN - DIPSTICK 0.2 E.U./dL (0.2)
[2019-01-10 02:32] LABS: BARBITURATES NEGATIVE (NEGATIVE); COCAINE NEGATIVE (NEGATIVE); METHADONE NEGATIVE (NEGATIVE); OXCYCODONE NEGATIVE (NEGATIVE); TETRAHYDROCANNABIONOL POSITIVE (NEGATIVE); TRICYLIC ANTIDEPRESSANTS NEGATIVE (NEGATIVE)
[2019-01-10 02:59] LABS: HEMATOCRIT 36.4 % (37.0-47.0); HEMOGLOBIN 12.1 g/dl (12.0-16.0); IMMATURE GRANULOCYTES 0.4 % (0.0-5.0); MEAN CELL VOLUME 94.5 fL CALC (80.0-100.0); MEAN CORPUSCULAR HGB 31.4 pG CALC (26.0-32.0); MEAN CORPUSCULAR HGB CONC 33.2 g/L CALC (32.0-36.0); NEUT# 10.62 thou/uL (2.00-7.15); RED BLOOD COUNT 3.85 mill/uL (4.20-5.60); RED CELL DISTRI WIDTH 13.3 % (11.5-15.5)
--- NOTE | 2019-01-10 03:20 | NUR ---
IV SITE INFILTRATED WHILE GIVING HYDRALAZINE. IV SITE PULLED AND ICE PACK APPLIED. DR NAIK INFORMED UNSURE OF AMOUNT OF MEDICATION IF ANY INFUSED INTO VEIN.
[2019-01-10 03:23] LABS: ALBUMIN 3.7 g/dL (3.2-5.0); ALKALINE PHOSPHATASE 108 u/l (38-126); BUN 12 mg/dL (8-23); BUN/CREATININE RATIO 23 (12-20 (CALC)); CARBON DIOXIDE 23 mmol/l (22-30); CHLORIDE 107 mmol/l (95-108); CREATININE 0.5 mg/dL (0.5-1.0); GFR > 60 ML/MIN (>=60 (CALC)); GFR FOR AFR.AMER. > 60 ML/MIN (>=60 (CALC)); LIPASE 39 u/l (23-300); SODIUM 140 mmol/l (137-146); TOTAL PROTEIN 6.2 g/dL (6.3-8.2)
[2019-01-10 03:26] LABS: ANION GAP 14 (6-22 (CALC)); POTASSIUM 3.6 mmol/l (3.5-5.1); SGOT/AST 20 u/l (9-36)
[2019-01-10 03:36] LABS: MYOGLOBIN 23 ng/mL (0 - 62)
--- NOTE | 2019-01-10 04:20 | NUR ---
BP CONTINUED TO BE HIGH, REPEAT DOSE OF HYDRALAZINE GIVEN.
--- NOTE | 2019-01-10 04:40 | NUR ---
REPORT GIVEN TO SHANTEL IVY.
--- NOTE | 2019-01-10 05:00 | NUR ---
Admission Note Report Given to: SHANTEL IVY. Transported by: X Wheelchair Stretcher Transported with: X Nurse Transporter X Patent IV O2 X Clerical Support Specialist
--- NOTE | 2019-01-10 05:03 | NUR ---
PT ARIVED TO THE FLOOR VIA WHEELCHAIR ACCOMPANIED BY ER STAFF. PT ALERT AND ORIENTED. PT AMBULATED FROM WHEELCHAIR TO BED, GATE STEADY. RESPIRATIONS EVEN AND UNLABORED ON RA. PT ORIENTED TO ROOM AND CALL MARTINES SYSTEM. ASSISTED PT TO BATHROOM AND BACK TO BED PER REQUEST. IV # 20 LH PATENT AND HEALTHY. PT REPORTS PAIN IN ABD, BACK, AND HEAD ACHE, MD TO BE NOTIFIED. SKIN INTACT. SAFETY PRECAUTIONS IN PLACE. CALL MARTINES WITHIN REACH. WILL CONTINUE TO MONITOR.
[2019-01-10 06:19] VITALS: BP 151/73
--- NOTE | 2019-01-10 06:55 | NUR ---
REPORT RECEIVED FROM CATARN;PT RESTING IN SEMI FOWLERS POSITION,A&O X3;INTRODUCED SELF TO PT AND POC DISCUSSED;RESPIRATIONS EVEN AND UNLABORED ON RA;PT DENIES ANY ADDITIONAL NEEDS AT THIS TIME AND IS ENCOURAGED TO CALL FOR ASSISTANCE IF NEEDED;FALL PRECAUTIONS IN PLACE WITH CALL LIGHT IN REACH;WILL CONTINUE TO MONITOR
--- NOTE | 2019-01-10 08:30 | NUR ---
AT BEDSIDE DISCUSSING POC.
[2019-01-10 09:20] VITALS: BP 141/64
--- NOTE | 2019-01-10 09:20 | NUR ---
PT RESTING IN SEMI FOWLERS POSITION, A&O X3;VS OBTAINED AND ASSESSMENT COMPLETED;PT DENIES ANY CURRENT PAIN OR DISCOMFORTS,PAIN SCALE AND REPORTING EDUCATED;RESPIRATIONS EVEN AND UNLABORED ON RA;ABDOMEN SOFT ON PALPATION AND ACTIVE IN ALL 4 QUADRANTS;STRONG PEDAL PULSES;SKIN INTACT;#20G TO LEFT HAND INFUSING NS @ 125ML/HR,SITE APPEARS HEALTHY;TELE MONITORING IN PLACE;PT DENIES ANY ADDITIONAL NEEDS AT THIS TIME AND IS ENCOURAGED TO CALL FOR ASSISTANCE IF NEEDED;FALL PRECAUTIONS IN PLACE WITH CALL LIGHT IN REACH;WILL CONTINUE TO MONITOR
[2019-01-10 09:57] LABS: HEMOGLOBIN 12.5 g/dl (12.0-16.0); IMMATURE GRANULOCYTES 0.7 % (0.0-5.0); MEAN CELL VOLUME 95.2 fL CALC (80.0-100.0); MEAN CORPUSCULAR HGB 31.3 pG CALC (26.0-32.0); MEAN CORPUSCULAR HGB CONC 32.9 g/L CALC (32.0-36.0); NEUT# 13.33 thou/uL (2.00-7.15); RED BLOOD COUNT 3.99 mill/uL (4.20-5.60); RED CELL DISTRI WIDTH 13.5 % (11.5-15.5)
[2019-01-10 10:08] LABS: ALBUMIN 4.1 g/dL (3.2-5.0); ALKALINE PHOSPHATASE 103 u/l (38-126); BILIRUBIN, TOTAL 0.8 mg/dL (0.0-1.4); BUN 11 mg/dL (8-23); BUN/CREATININE RATIO 22 (12-20 (CALC)); CHLORIDE 107 mmol/l (95-108); CREATININE 0.5 mg/dL (0.5-1.0); GFR > 60 ML/MIN (>=60 (CALC)); GFR FOR AFR.AMER. > 60 ML/MIN (>=60 (CALC)); POTASSIUM 3.3 mmol/l (3.5-5.1); SGOT/AST 29 u/l (9-36); SODIUM 140 mmol/l (137-146); TOTAL PROTEIN 6.9 g/dL (6.3-8.2)
--- NOTE | 2019-01-10 10:10 | NUR ---
PT TRANSPORTED TO [facility]IA [facility]EL[facility] IN STABLE CONDITION ACCOMPANIED BY VOLUNTEER.
--- NOTE | 2019-01-10 10:25 | NUR ---
PT RETURNED TO ROOM 260 VIA WHEELCHAIR IN STABLE CONDITION ACCOMPANIED BY VOLUNTEER.
[2019-01-10 10:27] LABS: ANION GAP 18 (6-22 (CALC)); CARBON DIOXIDE 18 mmol/l (22-30)
[2019-01-10 11:22] VITALS: BP 139/74
--- NOTE | 2019-01-10 11:50 | NUR ---
PT RESTING IN SEMI FOWLERS POSITION EATING LUNCH;RESPIRATIONS EVEN AND UNLABORED ON RA;PT DENIES ANY CURRENT PAIN OR NEEDS;TELE MONITORING IN PLACE;IV SITE TO LEFT HAND INFUSING NS WITH EASE;ASSESSMENT REMAINS UNCHANGED AT THIS TIME;ENCOURAGED TO CALL FOR ASSISTANCE IF NEEDED;CALL LIGHT IN REACH;WILL CONTINUE TO MONITOR
[2019-01-10 15:00] VITALS: BP 151/67
--- NOTE | 2019-01-10 15:45 | NUR ---
PT APPEARS TO BE SLEEPING IN SEMI FOWLERS POSITION;RESPIRATIONS APPEAR EVEN AND UNLABORED ON RA;NO S/S OF DISTRESS NOTED;TELE MONITORING IN PLACE;IV FLUIDS CONTINUE TO INFUSE TO LEFT HAND @ 125ML/HR;ASSESSMENT REMAINS UNCHANGED AT THIS TIME;FALL PRECAUTIONS IN PLACE WITH CALL LIGHT IN REACH;WILL CONTINUE TO MONITOR
[2019-01-10 18:40] VITALS: BP 145/70
--- NOTE | 2019-01-10 20:01 | NUR ---
PATIENT RESTING IN BED AWAKE ALERT AND ORIENTEDX3 WATCHING TV. TELE MONITOR IN PLACE. IV SITE TO LEFT HAND INTACT WITH IVF PATENT AND INFUSING ORDERED. SITE REMAINS HEALTHY AT THIS TIME. SAFETY PRECAUTIONS REINFORCED. CALL LIGHT IN REACH. WILL CONT TO MONITOR.
--- NOTE | 2019-01-10 22:30 | NUR ---
PATIENT REQUESTING SLEEPING MED-DR. DUFFY CALLED AND NEW ORDER RECIEVED. PATIENT MEDICATED WITH RESTORIL 15MG PO FOR SLEEP. SAFETY PRECAUTIONS REINFORCED. CALL LIGHT IN REACH. WILL CONT TO MONITOR.
--- NOTE | 2019-01-10 23:54 | NUR ---
PATIENT APPEARS SLEEPING AT THIS TIME. RESP ARE EVEN AND UNLABORED, TELE MONITOR IN PLACE. IVF PATENT AND INFUSING VIA LEFT HAND SITE ORDERED. CALL LIGHT IN REACH. WILL CONT TO MONITOR.
[2019-01-11] VITALS (7 sets, daily range): BP systolic 155–176; BP diastolic 79–87
--- NOTE | 2019-01-11 03:40 | NUR ---
PATIENT APPEARS SLEEPING AT THIS TIME WITH HOB SLIGHTLY ELEVATED AND EYES CLOSED. RESP ARE EVEN AND UNLABORED. IVF PATENT AND INFUSING VIA LEFT HAND SITE ORDERED. TELE MONITOR IN PLACE. CALL LIGHT IN REACH. WILL CONT TO MONITOR.
--- NOTE | 2019-01-11 07:00 | NUR ---
REPORT RECEIVED FROM SHANTEL CONTI;PT RESTING IN BED, VERY ANXIOUS;INTRODUCED SELF TO PT AND POC DISCUSSED;RESPIRATIONS EVEN AND UNLABORED ON RA;PT DENIES ANY CURRENT PAIN,PAIN SCALE AND REPORTING EDUCATED;TELE MONITORING IN PLACE;IV FLUIDS INFUSING TO LEFT HAND WITH EASE;PT ENCOURAGED TO CALL FOR ASSISTANCE IF NEEDED;FALL PRECAUTIONS IN PLACE WITH CALL LIGHT IN REACH;WILL CONTINUE TO MONITOR
[2019-01-11 07:05] LABS: HEMATOCRIT 37.5 % (37.0-47.0); HEMOGLOBIN 12.7 g/dl (12.0-16.0); MEAN CELL VOLUME 93.5 fL CALC (80.0-100.0); MEAN CORPUSCULAR HGB 31.7 pG CALC (26.0-32.0); MEAN CORPUSCULAR HGB CONC 33.9 g/L CALC (32.0-36.0); NEUT# 24.27 thou/uL (2.00-7.15); RED BLOOD COUNT 4.01 mill/uL (4.20-5.60); RED CELL DISTRI WIDTH 13.7 % (11.5-15.5)
[2019-01-11 07:18] LABS: BUN 16 mg/dL (8-23); BUN/CREATININE RATIO 28 (12-20 (CALC)); CALCULATED LDLCHOLESTEROL 121 mg/dL (62-129 (CALC)); CHLORIDE 111 mmol/l (95-108); CHOLESTEROL HDL RATIO 3.4 (<4.4 (CALC)); CREATININE 0.6 mg/dL (0.5-1.0); GFR > 60 ML/MIN (>=60 (CALC)); GFR FOR AFR.AMER. > 60 ML/MIN (>=60 (CALC)); HDL CHOLESTEROL 57 mg/dL (>=40); SODIUM 142 mmol/l (137-146); TOTAL TRIGLYCERIDES 72 mg/dl (30-149); VLDL CHOLESTROL 14 mg/dl (0-48 (CALC))
[2019-01-11 07:19] LABS: ANION GAP 13 (6-22 (CALC)); CARBON DIOXIDE 22 mmol/l (22-30); POTASSIUM 4.2 mmol/l (3.5-5.1); TOTAL CHOLESTEROL 192 mg/dl (0-199)
--- NOTE | 2019-01-11 08:15 | NUR ---
AT BEDSIDE DISCUSSING POC.
--- NOTE | 2019-01-11 08:20 | NUR ---
PT OOB RESTING IN RECLINER, A&O X3;VS OBTAINED AND ASSESSMENT COMPLETED.CURRENT BP 170/81 HR 80, ALL MORNING MEDICATION ADMINISTERED AT THIS TIME;PT DENIES ANY CURRENT PAIN OR DISCOMFORTS,PAIN SCALE AND REPORTING EDUCATED;RESPIRATIONS EVEN AND UNLABORED ON O2 @ 2L VIA NC;NON-PRODUCTIVE COUGH NOTED;ABDOMEN SOFT ON PALPATION AND ACTIVE IN ALL 4 QUADRANTS;SKIN INTACT;#20G TO LEFT HAND INFUSING NS @ 125ML/HR,SITE APPEARS HEALTHY;TELE MONITORING IN PLACE;PT DENIES ANY ADDITIONAL NEEDS AT THIS TIME AND IS ENCOURAGED TO CALL FOR ASSISTANCE IF NEEDED;FALL PRECAUTIONS IN PLACE WITH CALL LIGHT IN REACH;WILL CONTINUE TO MONITOR
--- NOTE | 2019-01-11 11:35 | NUR ---
PT RESTING IN SEMI FOWLERS POSITION WATCHING TV;RESPIRATIONS EVEN AND UNLABORED ON RA;PT DENIES ANY CURRENT PAIN OR DISCOMFORTS;TELE MONITORING IN PLACE;IV FLUIDS CONTINUE TO INFUSE TO LEFT HAND WITH EASE;PT DENIES ANY ADDITIONAL NEEDS AT THIS TIME AND IS ENCOURAGED TO CALL FOR ASSISTANCE IF NEEDED;FALL PRECAUTIONS REMAIN IN PLACE WITH CALL LIGHT IN REACH;WILL CONTINUE TO MONITOR
--- NOTE | 2019-01-11 14:00 | NUR ---
PT TRANSPORTED TO [facility] VIA WHEELCHAIR IN STABLE CONDITION ACCOMPANIED BY VOLUNTEER.
--- NOTE | 2019-01-11 14:41 | NUR ---
PT TRANSPORTED BACK TO ROOM 260 VIA WHEELCHAIR IN STABLE CONDITION ACCOMPANIED BY VOLUNTEER.
--- NOTE | 2019-01-11 15:40 | NUR ---
PT RESTING IN SEMI FOWLERS POSITION;RESPIRATIONS EVEN AND UNLABORED,SHALLOW ON RA;PT DENIES ANY CURRENT PAIN OR DISCOMFORTS;IV FLUIDS INFUSING TO LEFT HAND WITH EASE;TELE MONITORING IN PLACE;PT DENIES ANY ADDITIONAL NEEDS AND IS ENCOURAGED TO CALL FOR ASSISTANCE IF NEEDED;CALL LIGHT IN REACH;WILL CONTINUE TO MONITOR
--- NOTE | 2019-01-11 18:18 | NUR ---
PT REPORTS ABDOMINAL PAIN AND LOWER BACK PAIN RATING 10/10 ON THE PAIN SCALE,PT MEDICATED WITH PRN ULTRAM 50MG PO;WILL MONITOR FOR EFFECTIVENESS
--- NOTE | 2019-01-11 19:10 | NUR ---
ASSESSMENT COMPLETED; IV SITE PATENT AND INFUSING ORDERED IVF WELL, NO REDNESS OR SWELLING NOTED TO SITE. ASSESSMENT COMPLETED. PT. ON RA; NO RESP. DISTRESS NOTED. UPDATED ON POC. PT. REPORTING STILL HAVING PAIN POST ADMINISTRATION OF ULTRAM AND IS REQUESTING THAT MD GIVE HER FURTHER PAIN MEDICATION. WILL CALL MD SHORTLY. CALL LIGHT IS IN REACH. WILL CONTINUE TO MONITOR.
--- NOTE | 2019-01-11 20:10 | NUR ---
SPOKE WITH DR. DUFFY AND NOTIFIED HIM OF PT'S REQUEST FOR WANTING SOMETHING ELSE BESIDES ULTRAM AND PER MD HE DOES NOT WANT ANY OTHER PAIN MEDICATIONS ORDERED FOR PT.. MD DID CHANGED FREQUENCY FOR ORDERED TRAMADOL TO Q4H FROM Q6H. ALSO NOTIFIED HIM OF ELEVATED B/P AND OF MEDS TO BE GIVEN COREG AND LASIX, NEW ORDERS RECEIVED FOR PRN HYDRALZINE IF THIS IS NOT SUCCESSFUL. UPDATED PT. ON NEW ORDERS.
--- NOTE | 2019-01-11 22:56 | NUR ---
B/P 202/107, MEDICATED WITH ORDERED APRESOLINE, WILL REASSESS.
--- NOTE | 2019-01-11 23:52 | NUR ---
B/P NOW DOWN TO 168/84; WILL CONTINUE TO MONITOR.
--- NOTE | 2019-01-12 01:22 | NUR ---
NOTIFIED DR. DUFFY OF ELEVATED B/P 191/100, NEW ORDERS RECEIVED AND TO BE CARRIED OUT.
[2019-01-12 01:23] VITALS: BP 191/100
--- NOTE | 2019-01-12 01:47 | NUR ---
B/P 195/105, MEDICATED WITH ORDERED CLONIDINE; WILL REASSESS. PT. REPORTING GENERALIZED PAIN WILL MEDICATE WHEN DUE FOR TRAMADOL. NO DISTRESS NOTED. CALL LIGHT IS IN REACH.
--- NOTE | 2019-01-12 02:30 | NUR ---
PT. REPORTS PAIN, BUT DECLINES TRAMADOL. OFFERED WARM /ICE PACKS OR TO BE REPOSITIONED AND DECLINES ALL COMFORT MEASURES. B/P REASSESSED AND MEDICATED WITH ORDERED CLONODINE; WILL CONTINUE TO MONITOR.
[2019-01-12 03:23] VITALS: BP 172/78
[2019-01-12 04:12] VITALS: BP 140/79
[2019-01-12 05:41] LABS: ANION GAP 13 (6-22 (CALC)); BUN 26 mg/dL (8-23); BUN/CREATININE RATIO 34 (12-20 (CALC)); CARBON DIOXIDE 25 mmol/l (22-30); CHLORIDE 106 mmol/l (95-108); CREATININE 0.8 mg/dL (0.5-1.0); GFR > 60 ML/MIN (>=60 (CALC)); GFR FOR AFR.AMER. > 60 ML/MIN (>=60 (CALC)); POTASSIUM 4.1 mmol/l (3.5-5.1); SODIUM 140 mmol/l (137-146)
[2019-01-12 05:45] LABS: HEMATOCRIT 35.5 % (37.0-47.0); HEMOGLOBIN 11.5 g/dl (12.0-16.0); IMMATURE GRANULOCYTES 2.2 % (0.0-5.0); MEAN CELL VOLUME 95.7 fL CALC (80.0-100.0); MEAN CORPUSCULAR HGB CONC 32.4 g/L CALC (32.0-36.0); NEUT# 21.38 thou/uL (2.00-7.15); RED BLOOD COUNT 3.71 mill/uL (4.20-5.60)
--- NOTE | 2019-01-12 07:19 | NUR ---
[id number] RECEIVED FROM SHANTEL SANTIAGO. PT. SITTING UPRIGHT IN BED. REPORTS A SLEEPLESS NIGHT. REPORTING OF CONCERNS ENCOURAGED. PLAN OF CARE DISCUSSED. CALL LIGHT REVIEWED AND IN REACH. FALL PRECAUTIONS REINFORCED.
[2019-01-12 07:43] VITALS: BP 161/86
--- NOTE | 2019-01-12 08:23 | NUR ---
DR. DUFFY IN TO SEE PT.
[2019-01-12 11:30] VITALS: BP 142/63
--- NOTE | 2019-01-12 13:36 | NUR ---
PT'S SON AT BEDSIDE. REPORTS COMFORTABLE W/ TAKING PT HOME FOR DISCHARGE. DR. DUFFY NOTIFIED.
[2019-01-12] MEDS ORDERED: LISINOPRIL10 MG PO (16:09)
[2019-01-12] MEDS ORDERED: COREG12.5 MG PO (16:09)
[2019-01-12] MEDS ORDERED: LASIX 20 MG TAB20 MG PO (16:10)
[2019-01-12] MEDS ORDERED: POT CHLORIDE10 ME1 PO (16:10)
[2019-01-12] MEDS ORDERED: TRAMADOL HCL50 MG PO (16:10)
[2019-01-12] MEDS ORDERED: PROAIR HFA108 MCG/AC PO (16:11)
[2019-01-12 16:34] VITALS: BP 140/78
--- NOTE | 2019-01-12 16:39 | NUR ---
DISCHARGE ORDER RECEIVED FROM DR. DUFFY. ORDER FOR HOME HEALTH. PT AGREES WITH [facility]. SPOKE WITH DUY AT [facility], INFO FAXED. PRESCRITIONS FAXED TO [facility] PER PT REQUEST.
--- NOTE | 2019-01-12 18:45 | NUR ---
RECEIVED REPORT FROM SHANTEL WILKERSON. IV SITE AND TELEMETRY REMOVED FROM DAYSHIFT. PT. AWAITING RIDE TO GO HOME.
--- NOTE | 2019-01-12 20:20 | NUR ---
PT. LEFT VIA W/C ACCOMPANIED BY BLISTER RUST ERADICATOR AND SON. PT. STABLE.
== END 2019-01-12 20:20 | disposition home health service (06) ==
LOC: ED 01:44 → ED-I 03:48 → ED 04:02 → MS2 04:03
PROVIDERS: Emergency Medicine; ADMIT Internal Medicine Geriatric Medicine; ATTEND Internal Medicine Geriatric Medicine
DX: I11.0 Hypertensive heart disease with heart failure (principal); I50.9 Heart failure, unspecified; J44.1 Chronic obstructive pulmonary disease with (acute) exacerbation; I25.10 Atherosclerotic heart disease of native coronary artery without angina pectoris; I48.91 Unspecified atrial fibrillation; E03.9 Hypothyroidism, unspecified; K21.9 Gastro-esophageal reflux disease without esophagitis; K27.9 Peptic ulcer, site unspecified, unspecified as acute or chronic, without hemorrhage or perforation; G89.4 Chronic pain syndrome; F13.20 Sedative, hypnotic or anxiolytic dependence, uncomplicated; F12.20 Cannabis dependence, uncomplicated; F19.20 Other psychoactive substance dependence, uncomplicated; M19.011 Primary osteoarthritis, right shoulder; F41.1 Generalized anxiety disorder; Z95.0 Presence of cardiac pacemaker; Z86.73 Personal history of transient ischemic attack (TIA), and cerebral infarction without residual deficits; Z91.14 Patient's other noncompliance with medication regimen

== ENCOUNTER 2019-05-23 19:32 | Emergency (ER) | payer MEDICARE ==
[~2019-05-23] VITALS: Ht 152.4 cm; Wt 53.0 kg
[~2019-05-23 19:32] MED LIST changes: +COREG12.5 MG PO; +POT CHLORIDE10 ME1 PO; +PROAIR HFA108 MCG/AC PO
[2019-05-23 20:18] LABS: IMMATURE GRANULOCYTES 0.3 % (0.0-5.0); MEAN CELL VOLUME 92.8 fL CALC (80.0-100.0); MEAN CORPUSCULAR HGB 30.6 pG CALC (26.0-32.0); MEAN CORPUSCULAR HGB CONC 32.9 g/L CALC (32.0-36.0); NEUT# 5.02 thou/uL (2.00-7.15); RED BLOOD COUNT 4.58 mill/uL (4.20-5.60); RED CELL DISTRI WIDTH 12.7 % (11.5-15.5)
[2019-05-23 20:22] LABS: HEMATOCRIT 42.5 % (37.0-47.0)
[2019-05-23 20:31] LABS: ALBUMIN 4.1 g/dL (3.2-5.0); ALKALINE PHOSPHATASE 90 u/l (38-126); ANION GAP 13 (6-22 (CALC)); BILIRUBIN, TOTAL 0.8 mg/dL (0.0-1.4); BUN 11 mg/dL (8-23); BUN/CREATININE RATIO 18 (12-20 (CALC)); CARBON DIOXIDE 23 mmol/l (22-30); CHLORIDE 108 mmol/l (95-108); CREATININE 0.6 mg/dL (0.5-1.0); GFR > 60 ML/MIN (>=60 (CALC)); GFR FOR AFR.AMER. > 60 ML/MIN (>=60 (CALC)); POTASSIUM 4.3 mmol/l (3.5-5.1); SGOT/AST 24 u/l (9-36); SODIUM 139 mmol/l (137-146)
[2019-05-23] MEDS ORDERED: MEDDOSEPAK PO (23:44)
[2019-05-23] MEDS ORDERED: FLEXERIL5 MG PO (23:44)
[2019-05-24 01:00] VITALS: BP 146/66
== END 2019-05-24 01:00 | disposition home or self-care (01) ==
LOC: ED 19:32
DX: M54.41 Lumbago with sciatica, right side (principal); I10 Essential (primary) hypertension; J44.9 Chronic obstructive pulmonary disease, unspecified; I48.91 Unspecified atrial fibrillation; E05.90 Thyrotoxicosis, unspecified without thyrotoxic crisis or storm; I69.351 Hemiplegia and hemiparesis following cerebral infarction affecting right dominant side; Z95.0 Presence of cardiac pacemaker

== ENCOUNTER 2019-10-04 15:51 | Observation (INO) | payer MEDICARE ==
[~2019-10-04] VITALS: Ht 152.4 cm; Wt 52.8 kg
[~2019-10-04 15:51] MED LIST changes: +DULOXETINE HCL30 MG PO; +FLEXERIL5 MG PO; +MEDDOSEPAK PO
[2019-10-04 17:55] LABS: HEMATOCRIT 37.2 % (37.0-47.0); HEMOGLOBIN 12.4 g/dl (12.0-16.0); IMMATURE GRANULOCYTES 0.6 % (0.0-5.0); MEAN CELL VOLUME 96.6 fL CALC (80.0-100.0); MEAN CORPUSCULAR HGB 32.2 pG CALC (26.0-32.0); MEAN CORPUSCULAR HGB CONC 33.3 g/L CALC (32.0-36.0); NEUT# 12.75 thou/uL (2.00-7.15); RED BLOOD COUNT 3.85 mill/uL (4.20-5.60); RED CELL DISTRI WIDTH 12.7 % (11.5-15.5)
[2019-10-04 18:14] LABS: ALKALINE PHOSPHATASE 101 u/l (38-126); ANION GAP 12 (6-22 (CALC)); BILIRUBIN, TOTAL 1.1 mg/dL (0.0-1.4); BUN 13 mg/dL (8-23); BUN/CREATININE RATIO 24 (12-20 (CALC)); CARBON DIOXIDE 24 mmol/l (22-30); CHLORIDE 106 mmol/l (95-108); CREATININE 0.5 mg/dL (0.5-1.0); GFR > 60 ML/MIN (>=60 (CALC)); GFR FOR AFR.AMER. > 60 ML/MIN (>=60 (CALC)); POTASSIUM 3.9 mmol/l (3.5-5.1); SGOT/AST 26 u/l (9-36); SODIUM 138 mmol/l (137-146)
[2019-10-04 20:30] VITALS: BP 173/88
[2019-10-04 20:55] VITALS: BP 185/72
[2019-10-04 21:35] VITALS: BP 179/88
[2019-10-04 22:35] VITALS: BP 128/59
[2019-10-05] VITALS: BP 112/61
[2019-10-05 04:00] VITALS: BP 131/72
[2019-10-05 05:18] LABS: HEMATOCRIT 37.8 % (37.0-47.0); HEMOGLOBIN 12.7 g/dl (12.0-16.0); MEAN CELL VOLUME 96.7 fL CALC (80.0-100.0); MEAN CORPUSCULAR HGB 32.5 pG CALC (26.0-32.0); MEAN CORPUSCULAR HGB CONC 33.6 g/L CALC (32.0-36.0); RED BLOOD COUNT 3.91 mill/uL (4.20-5.60); RED CELL DISTRI WIDTH 12.6 % (11.5-15.5)
[2019-10-05 05:44] LABS: ANION GAP 10 (6-22 (CALC)); BUN 16 mg/dL (8-23); BUN/CREATININE RATIO 35 (12-20 (CALC)); CARBON DIOXIDE 23 mmol/l (22-30); CHLORIDE 109 mmol/l (95-108); CREATININE 0.5 mg/dL (0.5-1.0); GFR > 60 ML/MIN (>=60 (CALC)); GFR FOR AFR.AMER. > 60 ML/MIN (>=60 (CALC)); POTASSIUM 4.1 mmol/l (3.5-5.1); SODIUM 139 mmol/l (137-146)
[2019-10-05 08:00] VITALS: BP 142/77
[2019-10-05] MEDS ORDERED: NORVASC5 M1 PO (10:24)
[2019-10-05] MEDS ORDERED: ALBUTEROL108 MCG/AC IN (10:40)
[2019-10-05] MEDS ORDERED: CARVEDILOL6.25 MG PO (10:41)
[2019-10-05] MEDS ORDERED: FLOVENT DI50 MCG/BLI IN (10:43)
[2019-10-05] MEDS ORDERED: FUROSEMIDE20 MG PO (10:44)
[2019-10-05] MEDS ORDERED: KLOR-CON M2020 MEQ PO (10:47)
[2019-10-05] MEDS ORDERED: LISINOPRIL10 MG PO (10:48)
[2019-10-05] MEDS ORDERED: TRAMADOL HCL50 MG PO (10:49)
[2019-10-05 12:00] VITALS: BP 116/62
[2019-10-05] MEDS ORDERED: CYMBALTA60 MG PO (15:21)
[2019-10-05 20:35] VITALS: BP 135/103
[2019-10-06] VITALS (9 sets, daily range): BP systolic 119–195; BP diastolic 59–99
[2019-10-06] MEDS ORDERED: ZITHROMAX250 MG PO (12:20)
[2019-10-06] MEDS ORDERED: PREDNISONE10 MG PO ×2 (12:20)
[2019-10-06] MEDS ORDERED: ROBITUSSIN AC10 ML PO (12:23)
== END 2019-10-06 14:55 ==
LOC: ED 15:51 → ED-I 18:31 → ED 18:43 → ICU 18:44
PROVIDERS: Family Medicine; ADMIT Internal Medicine; ATTEND Internal Medicine
DX: J44.1 Chronic obstructive pulmonary disease with (acute) exacerbation (principal); I10 Essential (primary) hypertension; I48.91 Unspecified atrial fibrillation; Z95.0 Presence of cardiac pacemaker; Z86.73 Personal history of transient ischemic attack (TIA), and cerebral infarction without residual deficits; M47.816 Spondylosis without myelopathy or radiculopathy, lumbar region

== ENCOUNTER 2020-02-14 06:51 | Emergency (ER) | payer MEDICARE ==
[~2020-02-14] VITALS: Ht 152.4 cm; Wt 65.0 kg
[~2020-02-14 06:51] MED LIST changes: +ALBUTEROL108 MCG/AC IN; +CARVEDILOL6.25 MG PO; +CYMBALTA60 MG PO; +FLOVENT DI50 MCG/BLI IN; +FUROSEMIDE20 MG PO; +KLOR-CON M2020 MEQ PO; +NORVASC5 M1 PO; +PREDNISONE10 MG PO; +ROBITUSSIN AC10 ML PO
[2020-02-14 07:53] LABS: HEMATOCRIT 42.9 % (37.0-47.0); HEMOGLOBIN 14.3 g/dl (12.0-16.0); IMMATURE GRANULOCYTES 0.4 % (0.0-5.0); MEAN CELL VOLUME 94.9 fL CALC (80.0-100.0); MEAN CORPUSCULAR HGB 31.6 pG CALC (26.0-32.0); MEAN CORPUSCULAR HGB CONC 33.3 g/dL CAL (32.0-36.0); NEUT# 8.57 thou/uL (2.00-7.15); RED BLOOD COUNT 4.52 mill/uL (4.20-5.60); RED CELL DISTRI WIDTH 12.5 % (11.5-15.5)
[2020-02-14 08:06] LABS: ALBUMIN 4.6 g/dL (3.2-5.0); ALKALINE PHOSPHATASE 110 u/l (38-126); AMYLASE 48 u/l (30-110); ANION GAP 11 (6-22 (CALC)); BUN 16 mg/dL (8-23); BUN/CREATININE RATIO 22 (12-20 (CALC)); CARBON DIOXIDE 25 mmol/l (22-30); CHLORIDE 107 mmol/l (95-108); CREATININE 0.7 mg/dL (0.5-1.0); GFR > 60 ML/MIN (>=60 (CALC)); GFR FOR AFR.AMER. > 60 ML/MIN (>=60 (CALC)); LIPASE 39 u/l (23-300); POTASSIUM 4.2 mmol/l (3.5-5.1); SGOT/AST 19 u/l (9-36); SODIUM 139 mmol/l (137-146); TOTAL PROTEIN 6.9 g/dL (6.3-8.2)
[2020-02-14 08:11] LABS: BILIRUBIN, TOTAL 0.4 mg/dL (0.0-1.4)
[2020-02-14] MEDS ORDERED: ZOFRAN4 M1 PO ×2 (10:28)
[2020-02-14] MEDS ORDERED: PROTONIX40 M2 PO ×2 (10:28)
[2020-02-14 10:45] VITALS: BP 188/97
== END 2020-02-14 10:47 | disposition home or self-care (01) ==
LOC: ED 06:51
DX: R10.33 Periumbilical pain (principal); R10.13 Epigastric pain; I10 Essential (primary) hypertension; J44.9 Chronic obstructive pulmonary disease, unspecified; I48.91 Unspecified atrial fibrillation; Z95.0 Presence of cardiac pacemaker; Z86.73 Personal history of transient ischemic attack (TIA), and cerebral infarction without residual deficits

== ENCOUNTER 2020-03-22 13:20 | Emergency (ER) | payer MEDICARE ==
[~2020-03-22] VITALS: Ht 152.4 cm; Wt 54.0 kg
[~2020-03-22 13:20] MED LIST changes: +PROTONIX40 M2 PO; +ZOFRAN4 M1 PO
[2020-03-22 14:45] LABS: HEMATOCRIT 41.9 % (37.0-47.0); HEMOGLOBIN 13.6 g/dl (12.0-16.0); IMMATURE GRANULOCYTES 0.3 % (0.0-5.0); MEAN CELL VOLUME 95.7 fL CALC (80.0-100.0); MEAN CORPUSCULAR HGB 31.1 pG CALC (26.0-32.0); MEAN CORPUSCULAR HGB CONC 32.5 g/dL CAL (32.0-36.0); NEUT# 8.57 thou/uL (2.00-7.15); RED BLOOD COUNT 4.38 mill/uL (4.20-5.60); RED CELL DISTRI WIDTH 12.6 % (11.5-15.5)
[2020-03-22 15:00] LABS: ALBUMIN 4.4 g/dL (3.2-5.0); ALKALINE PHOSPHATASE 93 u/l (38-126); ANION GAP 10 (6-22 (CALC)); BUN 13 mg/dL (8-23); BUN/CREATININE RATIO 23 (12-20 (CALC)); CARBON DIOXIDE 24 mmol/l (22-30); CHLORIDE 107 mmol/l (95-108); CREATININE 0.6 mg/dL (0.5-1.0); GFR > 60 ML/MIN (>=60 (CALC)); GFR FOR AFR.AMER. > 60 ML/MIN (>=60 (CALC)); LIPASE 33 u/l (23-300); POTASSIUM 4.2 mmol/l (3.5-5.1); SGOT/AST 29 u/l (9-36); SODIUM 138 mmol/l (137-146)
[2020-03-22 15:03] LABS: BILIRUBIN, TOTAL 0.6 mg/dL (0.0-1.4)
[2020-03-22 16:18] LABS: URINE BILIRUBIN - DIPSTICK NEGATIVE (NEGATIVE); URINE BLOOD DIPSTICK NEGATIVE (NEGATIVE); URINE COLOR YELLOW; URINE GLUCOSE - DIPSTICK NEGATIVE (NEGATIVE); URINE KETONE NEGATIVE (NEGATIVE); URINE LEUK ESTERASE NEGATIVE (NEGATIVE); URINE NITRITE - DIPSTICK NEGATIVE (Negative); URINE PROTEIN - DIPSTICK NEGATIVE (NEG-TRACE); URINE SPECIFIC GRAVITY 1.025; URINE UROBILINOGEN - DIPSTICK 0.2 E.U./dL (0.2)
[2020-03-22] MEDS ORDERED: ZOFRAN4 MG/TAB PO (16:56)
[2020-03-22] MEDS ORDERED: DICYCLOMINE10 MG PO (16:56)
[2020-03-22 17:05] VITALS: BP 144/65
== END 2020-03-22 17:15 | disposition home or self-care (01) ==
LOC: ED 13:20 → ED-I 15:07 → ED 17:15
PROVIDERS: Student in an Organized Health Care Education/Training Program
DX: K52.9 Noninfective gastroenteritis and colitis, unspecified (principal); I10 Essential (primary) hypertension; J44.9 Chronic obstructive pulmonary disease, unspecified; I48.91 Unspecified atrial fibrillation; E05.90 Thyrotoxicosis, unspecified without thyrotoxic crisis or storm; Z86.73 Personal history of transient ischemic attack (TIA), and cerebral infarction without residual deficits; Z95.0 Presence of cardiac pacemaker; Z20.828 Contact with and (suspected) exposure to other viral communicable diseases

== ENCOUNTER 2020-03-22 18:56 | Observation (INO) | payer MEDICARE ==
[~2020-03-22] VITALS: Ht 152.4 cm; Wt 54.0 kg
[~2020-03-22 18:56] MED LIST changes: +DICYCLOMINE10 MG PO; +ZOFRAN4 MG/TAB PO
--- NOTE | 2020-03-22 18:57 | NUR ---
BY WC TO ROOM
--- NOTE | 2020-03-22 19:59 | NUR ---
PT SUPINE IN BED, AIRWAY PATENT, RESP EVEN AND NON LABORED, IVF INFUSING # 20 RIGHT EJ, SITE WITHOUT REDNESS AND SWELLING.
--- NOTE | 2020-03-22 20:27 | NUR ---
TWO ATTEMPTS MADE TO CALL REPORT. NO ANSWER.
--- NOTE | 2020-03-22 20:39 | NUR ---
PT RESTING WITH EYES CLOSED, AWAKENS EASILY. VITAL SIGNS STABLE. NO ACUTE DISTRESS NOTED.
--- NOTE | 2020-03-22 21:07 | NUR ---
REPORT TO HOLLAND FUNES.
--- NOTE | 2020-03-22 21:08 | NUR ---
PT TO ROOM 260 VIA STRETCHER IN STABLE CONDITION.
[2020-03-22 21:20] VITALS: BP 176/85
--- NOTE | 2020-03-22 21:20 | NUR ---
PT ARRIVED TO FLOOR VIA STRETCHER ACCOMPAINED BY ER STAFF. PT ALERT AND ORIENTED X3. NO APPARENT DISTRESS NOTED. PT SLID FROM STRETCHER TO BED X2 PERSON ASSIST. PT DENIES ANY PAIN OR NAUSEA AT THIS TIME. MANAGER COMMUNITY IN PLACE. IV SITE APPEARS HEALTHY WITH IVF INFUSING TO GRAVITY. SKIN INTACT. DISCUSSED POC AND ORIENTED PT TO ROOM AND CALL LIGHT SYSTEM. CALL LIGHT WITHIN REACH. WILL CONTINUE TO MONITOR.
[2020-03-22 22:34] VITALS: BP 126/71
[2020-03-23] VITALS: BP 141/70
--- NOTE | 2020-03-23 01:09 | NUR ---
PT RESTING IN BED WITH EYES CLOSED. NO APPARENT DISTRESS NOTED. RESPIRATIONS EVEN AND UNLABORED. CALL LIGHT WITHIN REACH. WILL CONTINUE TO MONITOR.
[2020-03-23 04:00] VITALS: BP 174/86
[2020-03-23 04:56] LABS: HEMATOCRIT 36.7 % (37.0-47.0); HEMOGLOBIN 11.8 g/dl (12.0-16.0); IMMATURE GRANULOCYTES 0.2 % (0.0-5.0); MEAN CELL VOLUME 97.9 fL CALC (80.0-100.0); MEAN CORPUSCULAR HGB 31.5 pG CALC (26.0-32.0); MEAN CORPUSCULAR HGB CONC 32.2 g/dL CAL (32.0-36.0); NEUT# 5.7 thou/uL (2.00-7.15); RED BLOOD COUNT 3.75 mill/uL (4.20-5.60); RED CELL DISTRI WIDTH 12.9 % (11.5-15.5)
--- NOTE | 2020-03-23 05:18 | NUR ---
RN ON SHIFT TO ADMINISTER IV HYDRALAZINE FOR MANUAL BP 172/84. PT C/O RIGHT HIP PAIN AND HEADACHE. PT STATES SHE BROKE HER HIP 8-9 MONTHS AGO. PT REFUSING TYLENOL AT THIS TIME. REPOSITIONED FOR COMFORT AND OFFERED COOL PACK FOR HEAD. ICE CHIPS PROVIDED. PT DENIES ANY NAUSEA AT THIS TIME AND HAS NOT EXPERIENCED ANY NAUSEA OR VOMITED ON SINCE ADMITTED. CALL LIGHT WITHIN REACH. WILL CONTINUE TO MONITOR.
[2020-03-23 05:19] LABS: ANION GAP 7 (6-22 (CALC)); BUN 12 mg/dL (8-23); BUN/CREATININE RATIO 21 (12-20 (CALC)); CARBON DIOXIDE 23 mmol/l (22-30); CHLORIDE 112 mmol/l (95-108); CREATININE 0.6 mg/dL (0.5-1.0); GFR > 60 ML/MIN (>=60 (CALC)); GFR FOR AFR.AMER. > 60 ML/MIN (>=60 (CALC)); POTASSIUM 3.7 mmol/l (3.5-5.1); SODIUM 138 mmol/l (137-146)
[2020-03-23 06:11] VITALS: BP 156/78
--- NOTE | 2020-03-23 10:00 | NUR ---
PT IS IN BED WITH EYES OPEN AND ABLE TO MAKE NEEDS KNOWN. SKIN IS WARM TO TOUCH. RESPIRATION IS EVEN AND NONLABORED. DENIES COUGH AND CONGESTION. ON TELEMETRY AND PACED. PT DENIES URINARY DISCOMFORT. UP TO BSC WITH NO ASSIST NEEDED. PT HAS SOME CONTRACTURE NOTED TO RIGHT HAND BUT ABLE TO OPEN HAND WHEN ASKED. BLOOD PRESSURES STABLE. PT STATES THAT SHE HAD LARGE BM THIS AM. PT HAS #20 IN RIGHT ANTERIOR JUGULAR WITH NO COMPLICATIONS NOTED. DRESSING INTACT. CONTINUES ON A FULL LIQUID DIET AND TOLERATING WELL. NO NAUSEA OR VOMITING NOTED. HAS NORMAL SALINE RUNNING AT 80ML/HR AND TOLERATING WELL. COMPLAINED OF BACK AND NECK PAIN AT A 7 ON SCALE OF 1-10 WITH 10 GREATEST. MD HERE AND MADE AWARE AND WILL ADDRESS PAIN MANAGEMENT. CALL LIGHT WITHIN REACH AND BED IN LOWEST POSITION. WILL CONTINUE TO OBSERVE.
[2020-03-23 11:29] VITALS: BP 133/59
[2020-03-23 15:07] VITALS: BP 144/68
--- NOTE | 2020-03-23 17:16 | NUR ---
PT IN BED WITH EYES OPEN AND ABLE TO MAKE NEEDS KNOWN. REQUESTED tRAMADOL FOR PAIN AND WAS GIVEN AND ORDERED. FLUIDS ENCOURAGED BY MOUTH AND TOLERATED WELL. CONTINENT OF B/B AND UP TO BSC WITH NO COMPLICATIOSN NOTED. CONTINUES ON BEDREST. WILL CONTINUE TO OBSERVE.
[2020-03-23 18:43] VITALS: BP 156/82
--- NOTE | 2020-03-23 19:10 | NUR ---
REPORT FROM ARIADNA FUNES. PT NOTED RESTING IN BED. NO APPARENT DISTRESS NOTED. ALERT AND ORIENTED X3. IVF INFUSING WITHOUT DIFFICULTY. MECHANICAL ORDNANCE ASSEMBLER IN PLACE. DISCUSSED POC. PT VERBALIZED UNDERSTANDING. PT DENIES ANY NAUSEA OR VOMITING SINCE ADMISSION. PT DENIES ANY CURRENT WANTS OR NEEDS. CALL LIGHT WITHIN REACH. WILL CONTINUE TO MONITOR.
--- NOTE | 2020-03-23 20:50 | NUR ---
PT MEDICATED ORDERED. ASSESSMENT COMPLETE. PT C/O BACK PAIN, APAP OFFERED AT THIS TIME IT IS TOO SOON FOR MORE TRAMADOL, PT REFUSED, REPOSITIONING AND ICE PACKS ALSO REFUSED AT THIS TIME. PT STATES SHE WILL JUST WAIT FOR THE TRAMADOL WHEN ITS TIME. NO RESPIRATORY DISTRESS NOTED. CALL LIGHT WITHIN REACH. WILL CONTINUE TO MONITOR.
[2020-03-24] VITALS (7 sets, daily range): BP systolic 138–170; BP diastolic 71–82
--- NOTE | 2020-03-24 00:10 | NUR ---
PT RESTING IN BED WITH EYES CLOSED. NO APPARENT DISTRESS NOTED. IVF INFUSING WITHOUT DIFFICULTY. VSS. CALL LIGHT WITHIN REACH. WILL CONTINUE TO MONITOR.
[2020-03-24 04:46] LABS: HEMATOCRIT 35.5 % (37.0-47.0); HEMOGLOBIN 11.3 g/dl (12.0-16.0); MEAN CORPUSCULAR HGB 31.8 pG CALC (26.0-32.0); MEAN CORPUSCULAR HGB CONC 31.8 g/dL CAL (32.0-36.0); RED BLOOD COUNT 3.55 mill/uL (4.20-5.60); RED CELL DISTRI WIDTH 13.3 % (11.5-15.5)
[2020-03-24 05:14] LABS: ALKALINE PHOSPHATASE 65 u/l (38-126); ANION GAP 7 (6-22 (CALC)); BILIRUBIN, TOTAL 0.6 mg/dL (0.0-1.4); BUN 14 mg/dL (8-23); BUN/CREATININE RATIO 22 (12-20 (CALC)); CARBON DIOXIDE 22 mmol/l (22-30); CHLORIDE 113 mmol/l (95-108); CREATININE 0.6 mg/dL (0.5-1.0); GFR > 60 ML/MIN (>=60 (CALC)); GFR FOR AFR.AMER. > 60 ML/MIN (>=60 (CALC)); POTASSIUM 3.6 mmol/l (3.5-5.1); SGOT/AST 20 u/l (9-36); SODIUM 138 mmol/l (137-146)
[2020-03-24 05:15] LABS: TOTAL PROTEIN 5.1 g/dL (6.3-8.2)
--- NOTE | 2020-03-24 06:27 | NUR ---
CURRENT BP 176/91, RN OF SHIFT TO ADMINISTER PRN HYDRALAZINE. WILL CONTINUE TO MONITOR.
--- NOTE | 2020-03-24 07:13 | NUR ---
RECEIVED REPORT FROM MYLA MADDEN. RESIDENT IN BED WITH EYES OPEN AND ABLE TO MAKE NEEDS KNOWN . WILL CONTINUE TO OBSERVE.
--- NOTE | 2020-03-24 08:08 | NUR ---
PT UP SITTING IN BED EATING BREAKFAST. PT STATES THAT APPETITE IS MUCH BETTER THIS AM. BOWEL SOUNDS ARE ACTIVE AND STATED NO BM SINCE YESTERDAY. RESIDENT IV SITE IS INTACT TO RIGHT JUGULAR AND NORMAL SALINE RUNNING AT 80ML/HR. CALL LIGHT WITHIN REACH. WILL CONTINUE TO OBSERVE.
[2020-03-24] MEDS ORDERED: TRAMADOL HCL50 MG PO (11:44)
--- NOTE | 2020-03-24 12:31 | NUR ---
PT IN BED WITH EYES OPEN AND ABLE TO VERBALIZE NEEDS. RECHECKED BP AND APRESOLINE EFFECTIVE. PT STATES SHE FEELS SO MUCH BETTER TODAY. MD IN AND NW ORDER TO DISCHARGE PT HOME. PT AWARE AND REQUEST IV BE REMOVED DUE TO PAIN AND DISCOMFORY. IV REMOVED FROM RIGHT ANTERIOR JUGULAR AND TOLERATED WELL. TIP WAS INTACT. WILL CONTINUE TO OBSERVE.
--- NOTE | 2020-03-24 13:00 | NUR ---
PT WAS ADMITTED FROM THE ER VIA STRETCHER. PT IS ALERT AND ORIENTED AND ABLE TO MAKE NEEDS KNOWN. HEARING AND VISION ADEQUATE AND PT WEARS GLASSES. PT HAS HER OWN TEETH WITH SOME MISSING BUT DENIES ORAL COMPLICATIONS. HEART RHYTHM REGULAR AND LUNG SOUNDS ARE CLEAR IN ALL QUADRANTS. ABDOMEN IS NONTENDER AND SOFT. BOWEL SOUNDS PRESENT IN ALL QUADRANTS. PT HAS REDNESS AND ODOR NOTED TO [place] AREA AND UNDER ABDOMINAL FOLDS. AREAS CLEANSED WITH SOAP AND WATER AND BARRIER CREAM APPLIED. REDNESS HAD TO RIGHT LOWER GRECO AREA WITH WARMNESS NOTED. PITTING EDEMA IN BILATERAL LOWER EXTREMITIES. RESIDENT IS CONTINENT OF B/B. PEDAL PULSES FELT IN BILAT FEET.
--- NOTE | 2020-03-24 17:51 | NUR ---
PT IN BED WITH EYES CLOSED. DENIES PAIN OR DISCOMFORT. BP ELEVATED 166/81. MD WAS NOTIFIED AND NEW ORDERS NOTED.
--- NOTE | 2020-03-24 18:08 | NUR ---
PT WAS DISCHARGED HOME THIS EVENING. PT IS ALERT AND ORIENTED. EDUCATION DONE WITH PT ON DISCHARGE INSTRUCTIONS REGARDIMG DISCHARGE MEDICATIONS AND FOLLOW UP WITH PCP AND SHE STATES SHE UNDERSTANDS. ALL PERTINENT PAPERS AND BELONGINGS TAKEN WITH PT. PT WAS ABLE TO TRANSFER TO VEHICLE WITH NO ASSIST NEEDED. WILL CONTINUE TO OBSERVE
--- NOTE | 2020-03-24 19:16 | NUR ---
PT IN BED WITH EYES OPEN. AMLODIPINE WAS GIVEN AND WILL BOSERVE BLOOD PRESSURES. DIET CHANGED TO REGULAR AND SHE TOLERATED WELL. CALL LIGHT WITHIN REACH AND BED IN LOWEST POSITION. WILL CONTINUE TO OBSERVE
--- NOTE | 2020-03-24 22:10 | NUR ---
PT MEDICATED ORDERS PROVIDE AND ASSESSMENT COMPLETED AT THIS TIME.
--- NOTE | 2020-03-25 02:10 | NUR ---
PT SLEEPING, NO S/O DISTRESS NOTED. CALL LIGHT W/IN REACH.
--- NOTE | 2020-03-25 03:55 | NUR ---
LAB IS IN AT BEDSIDE, NO S/O DISTRESS NOTED. PT DENIES ANY NEEDS AT THIS TIME.
[2020-03-25 04:00] VITALS: BP 108/61; BP 134/78
[2020-03-25 05:18] LABS: HEMATOCRIT 35.3 % (37.0-47.0); HEMOGLOBIN 11.3 g/dl (12.0-16.0); IMMATURE GRANULOCYTES 0.3 % (0.0-5.0); MEAN CELL VOLUME 98.1 fL CALC (80.0-100.0); MEAN CORPUSCULAR HGB 31.4 pG CALC (26.0-32.0); NEUT# 3.76 thou/uL (2.00-7.15); RED BLOOD COUNT 3.6 mill/uL (4.20-5.60); RED CELL DISTRI WIDTH 12.9 % (11.5-15.5)
[2020-03-25 05:51] LABS: ANION GAP 4 (6-22 (CALC)); BUN 12 mg/dL (8-23); BUN/CREATININE RATIO 19 (12-20 (CALC)); CARBON DIOXIDE 25 mmol/l (22-30); CHLORIDE 111 mmol/l (95-108); CREATININE 0.6 mg/dL (0.5-1.0); GFR > 60 ML/MIN (>=60 (CALC)); GFR FOR AFR.AMER. > 60 ML/MIN (>=60 (CALC)); POTASSIUM 3.4 mmol/l (3.5-5.1); SODIUM 137 mmol/l (137-146)
--- NOTE | 2020-03-25 06:22 | NUR ---
PT MEDICATED FOR PAIN AT THIS TIME IN BACK AND HIP. PT IS NOW REPORTING BEING NAUSEATED AT THIS TIME. MEDICATION IS IV, I WILL OBTAIN PO ORDER. PT IS W/OUT IV SITE.
[2020-03-25 09:13] VITALS: BP 180/84
[2020-03-25 09:19] VITALS: BP 180/84
[2020-03-25] MEDS ORDERED: ZOFRAN4 MG/TAB PO (10:08)
--- NOTE | 2020-03-25 12:45 | NUR ---
PT ALERT AND ORIENTED AND ABLE TO VERBALIZE NEEDS. SKIN WARM TO TOUCH. PT BEING DISCHARGE TODAY. PT IS ABLE TO TRANSFER TO BS WITH 1 PERSON ASSIST. CONTINENT OF B/B TELEMETRY REMOVED LAST EVENING AND NO COMPLICATIONS NOTED. BP ELEVATED THIS AM AND GIVEN BP MEDS AND EFFECTIVE TO LOWER BP. SISTER HERE TO TRANSFER PT HOME. DISCHARGE INSTRUCTIONS DISCUSSED WITH SISTER AND PT AND BOTH STATES THEY UNDERSTOOD INSTRUCTIONS. DISCHARGE PAPERWORK SIGNED AND ALL PERTINENT PAPER AND BELONGINGS TAKEN WITH PT. PT WAS ABLE TO TRASNFER SELF TO VEHICLE WITH STANDBY ASSIST.
== END 2020-03-25 12:40 | disposition home or self-care (01) ==
LOC: ED 18:56 → ED-I 19:12 → ED 19:12 → ED-I 19:15 → ED 19:46 → MS2 19:47
PROVIDERS: Nurse Practitioner Family; ADMIT Internal Medicine; ATTEND Internal Medicine
DX: K52.9 Noninfective gastroenteritis and colitis, unspecified (principal); I10 Essential (primary) hypertension; J44.9 Chronic obstructive pulmonary disease, unspecified; I48.91 Unspecified atrial fibrillation; E05.90 Thyrotoxicosis, unspecified without thyrotoxic crisis or storm; M54.9 Dorsalgia, unspecified; G89.29 Other chronic pain; Z95.0 Presence of cardiac pacemaker; Z86.73 Personal history of transient ischemic attack (TIA), and cerebral infarction without residual deficits; Z20.828 Contact with and (suspected) exposure to other viral communicable diseases; R10.84 Generalized abdominal pain; R19.7 Diarrhea, unspecified
CPT/HCPCS: G0378

== ENCOUNTER 2021-07-28 13:47 | Emergency (ER) | payer MEDICARE ==
[~2021-07-28] VITALS: Ht 152.4 cm; Wt 68.2 kg
[2021-07-28 15:33] LABS: HEMATOCRIT 38.8 % (37.0-47.0); IMMATURE GRANULOCYTES 0.2 % (0.0-5.0); MEAN CORPUSCULAR HGB CONC 34.8 g/dL CAL (32.0-36.0); NEUT# 9.3 thou/uL (2.00-7.15); RED BLOOD COUNT 4.22 mill/uL (4.20-5.60); RED CELL DISTRI WIDTH 12.4 % (11.5-15.5)
[2021-07-28 15:46] LABS: HEMOGLOBIN 13.5 g/dl (12.0-16.0); MEAN CELL VOLUME 91.9 fL CALC (80.0-100.0)
[2021-07-28 15:50] LABS: ALBUMIN 3.6 g/dL (3.2-5.0); ALKALINE PHOSPHATASE 97 u/l (38-126); ANION GAP 12 (6-22 (CALC)); BUN 13 mg/dL (8-23); BUN/CREATININE RATIO 19 (12-20 (CALC)); CARBON DIOXIDE 22 mmol/l (22-30); CHLORIDE 108 mmol/l (95-108); CREATININE 0.7 mg/dL (0.5-1.0); GFR > 60 ML/MIN (>=60 (CALC)); GFR FOR AFR.AMER. > 60 ML/MIN (>=60 (CALC)); POTASSIUM 4.3 mmol/l (3.5-5.1); SODIUM 138 mmol/l (137-146)
[2021-07-28 15:51] LABS: BILIRUBIN, TOTAL 0.9 mg/dL (0.0-1.4); SGOT/AST 37 u/l (9-36); TOTAL PROTEIN 6.5 g/dL (6.3-8.2)
[2021-07-28 19:10] VITALS: BP 199/80
== END 2021-07-28 18:45 | disposition short-term general hospital (02) ==
LOC: ED 13:47
PROVIDERS: Family Medicine
DX: S72.142A Displaced intertrochanteric fracture of left femur, initial encounter for closed fracture (principal); I10 Essential (primary) hypertension; J44.9 Chronic obstructive pulmonary disease, unspecified; I48.91 Unspecified atrial fibrillation; F41.9 Anxiety disorder, unspecified; E05.90 Thyrotoxicosis, unspecified without thyrotoxic crisis or storm; W01.0XXA Fall on same level from slipping, tripping and stumbling without subsequent striking against object, initial encounter; Y92.009 Unspecified place in unspecified non-institutional (private) residence as the place of occurrence of the external cause; Z86.73 Personal history of transient ischemic attack (TIA), and cerebral infarction without residual deficits; Z95.0 Presence of cardiac pacemaker

== ENCOUNTER 2023-02-09 03:19 | Emergency (ER) | payer MEDICARE, OTHER ==
[~2023-02-09] VITALS: Ht 152.4 cm; Wt 77.0 kg
[2023-02-09 03:48] VITALS: BP 126/65
[2023-02-09 04:00] VITALS: BP 144/72
[2023-02-09 04:16] VITALS: BP 137/71
[2023-02-09 04:16] LABS: BASO% 0.3 % (0-3); EOS% 0.9 % (0-8); HEMATOCRIT 39.6 % (37.0-47.0); HEMOGLOBIN 12.5 g/dl (12.0-16.0); IMMATURE GRANULOCYTES 0.4 % (0.0-5.0); LYMPH% 42.8 % (15-41); MEAN CORPUSCULAR HGB 31.4 pG CALC (26.0-32.0); MEAN CORPUSCULAR HGB CONC 31.6 g/dL CAL (32.0-36.0); MONO% 6.5 % (2-13); NEUT# 5.18 thou/uL (2.00-7.15); NEUT% 49.1 % (42-76); RED BLOOD COUNT 3.98 mill/uL (4.20-5.60); RED CELL DISTRI WIDTH 12.7 % (11.5-15.5)
[2023-02-09 04:19] LABS: MEAN CELL VOLUME 99.5 fL CALC (80.0-100.0)
[2023-02-09 04:24] LABS: ALBUMIN 3.8 g/dL (3.2-5.0); ALKALINE PHOSPHATASE 86 u/l (38-126); ANION GAP 11 (6-22 (CALC)); BILIRUBIN, TOTAL 0.6 mg/dL (0.02-1.3); BUN 16 mg/dL (8-23); BUN/CREATININE RATIO 21 (12-20 (CALC)); CARBON DIOXIDE 26 mmol/l (22-30); CHLORIDE 108 mmol/l (95-108); CREATININE 0.8 mg/dL (0.5-1.0); GFR FOR AFR.AMER. > 60 ML/MIN (>=60 (CALC)); GFR OTHER RACES > 60 ML/MIN (>=60 (CALC)); POTASSIUM 4.3 mmol/l (3.5-5.1); SGOT/AST 27 u/l (9-36); SODIUM 140 mmol/l (137-146); TOTAL PROTEIN 6.7 g/dL (6.3-8.2)
[2023-02-09 04:31] VITALS: BP 127/93
[2023-02-09 05:29] VITALS: BP 138/63
[2023-02-09 05:50] VITALS: BP 138/63
== END 2023-02-09 05:54 | disposition short-term general hospital (02) ==
LOC: ED 03:19
PROVIDERS: Emergency Medicine
PROC: 2W3QX1Z Immobilization of Right Lower Leg using Splint (ICD-10-PCS; principal; 2023-02-09)
DX: S82.831A Other fracture of upper and lower end of right fibula, initial encounter for closed fracture (principal); S82.301A Unspecified fracture of lower end of right tibia, initial encounter for closed fracture; I48.91 Unspecified atrial fibrillation; J44.9 Chronic obstructive pulmonary disease, unspecified; I10 Essential (primary) hypertension; F41.9 Anxiety disorder, unspecified; E21.3 Hyperparathyroidism, unspecified; F03.90 Unspecified dementia, unspecified severity, without behavioral disturbance, psychotic disturbance, mood disturbance, and anxiety; W18.11XA Fall from or off toilet without subsequent striking against object, initial encounter; Y92.129 Unspecified place in nursing home as the place of occurrence of the external cause; Z86.73 Personal history of transient ischemic attack (TIA), and cerebral infarction without residual deficits; Z88.8 Allergy status to other drugs, medicaments and biological substances

== ENCOUNTER 2024-03-06 19:57 | Emergency (ER) | payer MEDICARE, OTHER ==
[~2024-03-06] VITALS: Ht 152.4 cm; Wt 65.0 kg
[2024-03-06] VITALS (7 sets, daily range): BP systolic 111–131; BP diastolic 53–62
[2024-03-06] MEDS ORDERED: ACETAMINOPHEN 500 MG TAB PO ONE (20:10)
[2024-03-06] MEDS ORDERED: ASPIRIN 81 MG/TAB PO ONE (20:10)
[2024-03-06] MEDS ORDERED: LIDOCAINE VISCOUS 2% 15 ML UDC PO ONE (20:10)
[2024-03-06] MEDS ORDERED: PANTOPRAZOLE SODIUM Sesquihydr 40 MG/TAB PO ONE (20:10)
[2024-03-06] MEDS ORDERED: ALUM & MAG HYDROX-SIMETHICONE 30 ML PO ONE (20:10)
[2024-03-06 20:41] LABS: BASO% 0.2 % (0-3); EOS% 0.8 % (0-8); HEMATOCRIT 35.5 % (37.0-47.0); HEMOGLOBIN 11.5 g/dl (12.0-16.0); IMMATURE GRANULOCYTES 0.2 % (0.0-5.0); LYMPH% 15.6 % (15-41); MEAN CELL VOLUME 96.7 fL CALC (80.0-100.0); MEAN CORPUSCULAR HGB 31.3 pG CALC (26.0-32.0); MEAN CORPUSCULAR HGB CONC 32.4 g/dL CAL (32.0-36.0); MONO% 6.4 % (2-13); NEUT# 8.54 thou/uL (2.00-7.15); NEUT% 76.8 % (42-76); RED BLOOD COUNT 3.67 mill/uL (4.20-5.60); RED CELL DISTRI WIDTH 13.8 % (11.5-15.5)
[2024-03-06 20:53] LABS: ALKALINE PHOSPHATASE 69 u/l (38-126); ANION GAP 8 (6-22 (CALC)); BUN 12 mg/dL (8-23); BUN/CREATININE RATIO 17 (12-20 (CALC)); CARBON DIOXIDE 24 mmol/l (22-30); CHLORIDE 112 mmol/l (95-108); CREATININE 0.7 mg/dL (0.5-1.0); ESTIMATED GFR 87 ML/MIN (>=90 (CALC)); LIPASE 36 u/l (23-300); POTASSIUM 4.1 mmol/l (3.5-5.1); SGOT/AST 22 u/l (9-36); SODIUM 141 mmol/l (137-146); TOTAL PROTEIN 6.1 g/dL (6.3-8.2)
[2024-03-06 20:59] LABS: ALBUMIN 3.5 g/dL (3.2-5.0); BILIRUBIN, TOTAL 0.5 mg/dL (0.02-1.3)
[2024-03-06] MEDS ORDERED: PEPCID20 MG PO (21:42)
== END 2024-03-06 22:39 | disposition home or self-care (01) ==
LOC: ED 19:57
PROVIDERS: Family Medicine
DX: R07.89 Other chest pain (principal); R10.13 Epigastric pain; I10 Essential (primary) hypertension; J44.9 Chronic obstructive pulmonary disease, unspecified; I48.91 Unspecified atrial fibrillation; Z86.73 Personal history of transient ischemic attack (TIA), and cerebral infarction without residual deficits; Z95.0 Presence of cardiac pacemaker

== ENCOUNTER 2024-07-09 20:41 | Emergency (ER) | payer MEDICARE, OTHER ==
[~2024-07-09] VITALS: Ht 152.4 cm; Wt 65.0 kg
[~2024-07-09 20:41] MED LIST changes: +PEPCID20 MG PO
[2024-07-09 20:47] VITALS: BP 123/60
[2024-07-09] MEDS ORDERED: ACETAMINOPHEN 500 MG TAB PO ONE (20:50)
[2024-07-09] MEDS ORDERED: ASPIRIN 81 MG/TAB PO ONE (20:50)
[2024-07-09 21:01] VITALS: BP 117/62
[2024-07-09 21:08] LABS: BASO% 0.4 % (0-3); EOS% 2.1 % (0-8); HEMATOCRIT 38.9 % (37.0-47.0); HEMOGLOBIN 12.3 g/dl (12.0-16.0); IMMATURE GRANULOCYTES 0.1 % (0.0-5.0); LYMPH% 37.4 % (15-41); MEAN CELL VOLUME 98.2 fL CALC (80.0-100.0); MEAN CORPUSCULAR HGB 31.1 pG CALC (26.0-32.0); MEAN CORPUSCULAR HGB CONC 31.6 g/dL CAL (32.0-36.0); MONO% 7.3 % (2-13); NEUT# 5.22 thou/uL (2.00-7.15); NEUT% 52.7 % (42-76); RED BLOOD COUNT 3.96 mill/uL (4.20-5.60)
[2024-07-09 21:27] LABS: ALBUMIN 3.8 g/dL (3.2-5.0); ALKALINE PHOSPHATASE 71 u/l (38-126); ANION GAP 13 (6-22 (CALC)); BILIRUBIN, TOTAL 0.7 mg/dL (0.02-1.3); BUN 15 mg/dL (8-23); BUN/CREATININE RATIO 18 (12-20 (CALC)); CARBON DIOXIDE 25 mmol/l (22-30); CHLORIDE 106 mmol/l (95-108); CREATININE 0.8 mg/dL (0.5-1.0); ESTIMATED GFR 74 ML/MIN (>=90 (CALC)); LIPASE 37 u/l (23-300); POTASSIUM 4.5 mmol/l (3.5-5.1); SGOT/AST 28 u/l (9-36); SODIUM 139 mmol/l (137-146); TOTAL PROTEIN 6.6 g/dL (6.3-8.2)
[2024-07-09 21:30] VITALS: BP 120/56
[2024-07-09 22:00] VITALS: BP 119/60
[2024-07-09 22:30] VITALS: BP 114/56
[2024-07-09 22:49] VITALS: BP 114/56
== END 2024-07-09 22:49 | disposition home or self-care (01) ==
LOC: ED 20:41
PROVIDERS: Family Medicine
DX: R07.89 Other chest pain (principal); I10 Essential (primary) hypertension; J44.9 Chronic obstructive pulmonary disease, unspecified; I25.10 Atherosclerotic heart disease of native coronary artery without angina pectoris; I48.91 Unspecified atrial fibrillation; F41.9 Anxiety disorder, unspecified; F03.90 Unspecified dementia, unspecified severity, without behavioral disturbance, psychotic disturbance, mood disturbance, and anxiety; Z95.0 Presence of cardiac pacemaker

== ENCOUNTER 2024-09-05 00:11 | Emergency (ER) | payer MEDICARE, OTHER ==
[2024-09-05] VITALS (8 sets, daily range): BP systolic 130–195; BP diastolic 65–108
[~2024-09-05] VITALS: Ht 152.4 cm; Wt 60.0 kg
[2024-09-05] MEDS ORDERED: MORPHINE SULFATE 4 MG/ML VIAL IV STA (00:20)
[2024-09-05] MEDS ORDERED: PROMETHAZINE HCL 25 MG/ML AMP IV STA (00:20)
[2024-09-05] MEDS ORDERED: SODIUM CHLORIDE 0.9% 1,000 ML IV STA (00:20)
[2024-09-05] MEDS ORDERED: Pantoprazole Sodium 40 MG VIAL (Protonix) IV STA (00:20)
[2024-09-05] MEDS ORDERED: CARVEDILOL12.5 MG PO (00:43)
[2024-09-05 00:46] LABS: BASO% 0.1 % (0-3); EOS% 0.7 % (0-8); HEMATOCRIT 37.3 % (37.0-47.0); HEMOGLOBIN 11.6 g/dl (12.0-16.0); IMMATURE GRANULOCYTES 1.5 % (0.0-5.0); MEAN CELL VOLUME 99.5 fL CALC (80.0-100.0); MEAN CORPUSCULAR HGB 30.9 pG CALC (26.0-32.0); MEAN CORPUSCULAR HGB CONC 31.1 g/dL CAL (32.0-36.0); NEUT# 19.55 thou/uL (2.00-7.15); NEUT% 76.7 % (42-76); RED BLOOD COUNT 3.75 mill/uL (4.20-5.60); RED CELL DISTRI WIDTH 15.3 % (11.5-15.5)
[2024-09-05] MEDS ORDERED: REMERON7.5 MG PO (00:47)
[2024-09-05] MEDS ORDERED: LINZESS145 MCG PO (00:49)
[2024-09-05] MEDS ORDERED: BISACODYL5 M2 PO (00:50)
[2024-09-05] MEDS ORDERED: TRAZODONE100 MG PO (00:50)
[2024-09-05 00:53] LABS: ALBUMIN 3.1 g/dL (3.2-5.0); BILIRUBIN, TOTAL 0.7 mg/dL (0.02-1.3); CREATININE 0.7 mg/dL (0.5-1.0); POTASSIUM 4.3 mmol/l (3.5-5.1); TOTAL PROTEIN 5.6 g/dL (6.3-8.2)
[2024-09-05] MEDS ORDERED: OXYCOD-APAP1 TA1 PO (00:53)
[2024-09-05] MEDS ORDERED: FAMOTIDINE20 M1 PO (00:54)
[2024-09-05] MEDS ORDERED: ZOFRAN4 MG/TAB PO (00:54)
[2024-09-05] MEDS ORDERED: LEXAPRO10 MG PO (00:55)
[2024-09-05] MEDS ORDERED: methylPREDNISolone SODIUM SUCC 125 MG/2 ML SDV ONE (01:03)
[2024-09-05] MEDS ORDERED: DiphenhydrAMINE HCL 50 MG/ML SDV ONE (01:04)
[2024-09-05 03:37] LABS: URINE BILIRUBIN - DIPSTICK Negative (NEGATIVE); URINE BLOOD DIPSTICK Negative (NEGATIVE); URINE GLUCOSE - DIPSTICK Negative (NEGATIVE); URINE KETONE Negative (NEGATIVE); URINE LEUK ESTERASE Negative (NEGATIVE); URINE NITRITE - DIPSTICK Negative (Negative); URINE PH 7.5 (4.5-8.0); URINE PROTEIN - DIPSTICK Negative (NEG-TRACE); URINE SPECIFIC GRAVITY 1.015; URINE UROBILINOGEN - DIPSTICK 0.2 E.U./dL (0.2)
[2024-09-05 03:39] LABS: URINE COLOR Yellow
[2024-09-05] MEDS ORDERED: PHENERGAN25 MG RE (04:08)
== END 2024-09-05 04:35 | disposition home or self-care (01) ==
LOC: ED 00:11
PROVIDERS: Family Medicine
DX: K52.9 Noninfective gastroenteritis and colitis, unspecified (principal); I10 Essential (primary) hypertension; I25.10 Atherosclerotic heart disease of native coronary artery without angina pectoris; J44.9 Chronic obstructive pulmonary disease, unspecified; F03.90 Unspecified dementia, unspecified severity, without behavioral disturbance, psychotic disturbance, mood disturbance, and anxiety; I48.91 Unspecified atrial fibrillation; F41.9 Anxiety disorder, unspecified; E05.90 Thyrotoxicosis, unspecified without thyrotoxic crisis or storm; Z86.73 Personal history of transient ischemic attack (TIA), and cerebral infarction without residual deficits; Z20.822 Contact with and (suspected) exposure to COVID-19; R22.31 Localized swelling, mass and lump, right upper limb
CPT/HCPCS: J1200; J2470; J2550; Q9967